=== PATIENT | female | born 1980 | race Caucasian/White ===

== ENCOUNTER 2018-05-20 01:37 | Emergency (ER) | payer OTHER ==
[2018-05-20] MEDS ORDERED: HYDROCODONE/APAP 10/325 TAB ONE (02:14)
[2018-05-20] MEDS ORDERED: KETOROLAC 30 MG/ML INJ ONE (02:14)
[2018-05-20 02:30] LABS: Urine Mucus 3+ /HPF (NONE SEEN); Urine RBC <5 /HPF (NONE SEEN)
[2018-05-20 02:31] LABS: Urine Bacteria <20 /HPF (<20); Urine Culture Reflex Order NOT NEEDED
[2018-05-20 02:35] LABS: Urine Blood NEGATIVE (NEG); Urine Glucose NEGATIVE (NEG); Urine Protein NEGATIVE (NEG); Urine Specific Gravity 1.025 (1.005-1.030); Urine pH 5.5 (5.0-7.0)
--- NOTE | 2018-05-20 03:23 | EDPHYS ---
Physician Documentation [facility] Name: Christa Montero Age: 37 yrs Sex: Female : 1980 Arrival Date: 05/20/2018 Time: 01:38 Bed 16 Private MD: Urbano Sanchez ED Physician Juan Dumas HPI: 05/20 03:19 This 37 yrs old Female presents to ER via Ambulatory with complaints of Back gs Pain. 03:19 The patient presents with pain that is acute. The symptoms are located in the low back. gs Onset: The symptoms/episode began/occurred 2 day(s) ago, and became persistent. The pain radiates to the right quadriceps. Associated signs and symptoms: Pertinent negatives: dysuria, incontinence, numbness, urinary retention. Modifying factors: the patient symptoms are aggravated by any movement, bending. Severity of symptoms: At their worst the symptoms were moderate, in the emergency department the symptoms are unchanged. 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 - Social history:: Smoking status: Patient/guardian denies using tobacco, never smoked. - Ebola Screening: : No symptoms or risks identified at this time. ROS: 03:19 All other systems are negative. gs Exam: 03:19 Head/Face: Normocephalic, atraumatic. Eyes: Pupils equal round and reactive to light, gs extra-ocular motions intact. Lids and lashes normal. Conjunctiva and sclera are non-icteric and not injected. Cornea within normal limits. Periorbital areas with no swelling, redness, or edema. ENT: Nares patent. No nasal discharge, no septal abnormalities noted. Tympanic membranes are normal and external auditory canals are clear. Oropharynx with no redness, swelling, or masses, exudates, or evidence of obstruction, uvula midline. Mucous membranes moist. Neck: Trachea midline, no thyromegaly or masses palpated, and no cervical lymphadenopathy. Supple, full range of motion without nuchal rigidity, or vertebral point tenderness. No Meningismus. Chest/axilla: Normal chest wall appearance and motion. Nontender with no deformity. No lesions are appreciated. Cardiovascular: Regular rate and rhythm with a normal S1 and S2. No gallops, murmurs, or rubs. Normal PMI, no JVD. No pulse deficits. Respiratory: Lungs have equal breath sounds bilaterally, clear to auscultation and percussion. No rales, rhonchi or wheezes noted. No increased work of breathing, no retractions or nasal flaring. Abdomen/GI: Soft, non-tender, with normal bowel sounds. No distension or tympany. No guarding or rebound. No evidence of tenderness throughout. Skin: Warm, dry with normal turgor. Normal color with no rashes, no lesions, and no evidence of cellulitis. MS/ Extremity: Pulses equal, no cyanosis. Neurovascular intact. Full, normal range of motion. Neuro: Awake and alert, GCS 15, oriented to person, place, time, and situation. Cranial nerves II-XII grossly intact. Motor strength 5/5 in all extremities. Sensory grossly intact. Cerebellar exam normal. Normal gait. 03:19 Constitutional: The patient appears alert, awake. 03:19 Back: pain, that is moderate, of the right low back. Vital Signs: 01:45 BP 155 / 107; Pulse 94; Resp 20 S; Temp 98.7(O); Pulse Ox 98% on R/A; Weight 83.91 kg cc3 (R); Height 5 ft. 1 in. (154.94 cm) (R); Pain 10/10; 02:12 BP 151 / 97; Pulse 93; Resp 19 S; Pulse Ox 99% on R/A; cc3 03:20 BP 148 / 83; Pulse 89; Resp 18 S; Pulse Ox 98% on R/A; cc3 01:45 Body Mass Index 34.96 (83.91 kg, 154.94 cm) cc3 MDM: 01:55 Patient medically screened. 03:19 Differential diagnosis: Pyelonephritis ruptured disc, sprain, Ureterolithiasis. Data gs reviewed: vital signs, nurses notes. Counseling: I had a detailed discussion with the patient and/or guardian regarding: the historical points, exam findings, and any diagnostic results supporting the discharge/admit diagnosis, lab results, radiology results, the need for outpatient follow up. Response to treatment: the patient's symptoms have markedly improved after treatment, and as a result, I will discharge patient. 05/20 01:56 Order name: Urine Microscopic Only; Complete Time: 02:38 05/20 02:33 Order name: Urine Dipstick--Ancillary (enter results); Complete Time: 02:38 ar5 05/20 01:56 Order name: Urine Test (obtain specimen); Complete Time: 02:21 05/20 01:56 Order name: CT Stone Protocol 05/20 01:56 Order name: Urine Dipstick-Ancillary (obtain specimen); Complete Time: 02:21 Administered Medications: 02:05 Drug: [place] 10 mg-325 mg 1 tabs Route: PO; cc3 02:30 Follow up: Response: No adverse reaction; Pain is decreased cc3 02:10 Drug: TORadol 30 mg Route: IM; Site: left gluteus; cc3 02:30 Follow up: Response: No adverse reaction; Pain is decreased cc3 Disposition: 05/20/18 03:22 Discharged to Home. Impression: Sprain of ligaments of lumbar spine. - Condition is Stable. - Discharge Instructions: Back Exercises, [id number]. - Prescriptions for Prednisone 20 mg Oral Tablet - take 1 tablet by ORAL route once daily for 5 days; 5 tablet. Tylenol- Codeine #4 300-60 mg Oral Tablet - take 1 tablet by ORAL route every 6 hours As needed; 12 tablet. - Medication Reconciliation Form, Thank You Letter, Antibiotic Education, Prescription Opioid Use form. - Follow up: Private Physician; When: 2 - 3 days; Reason: Re-evaluation by your physician. Signatures: Dispatcher [facility] Juan Dumas MD MD Essie Conroy 3 Corrections: (The following items were deleted from the chart) 03:21 01:45 PMHx: None; cc3 03:37 03:22 05/20/2018 03:22 Discharged to Home. Impression: Sprain of ligaments of lumbar cc3 spine. Condition is Stable. Forms are Medication Reconciliation Form, Thank You Letter, Antibiotic Education, Prescription Opioid Use. Follow up: Private Physician; When: 2 - 3 days; Reason: Re-evaluation by your physician.
--- NOTE | 2018-05-20 03:23 | ER ---
Nurse's Notes [facility] Name: Christa Montero Age: 37 yrs Sex: Female : 1980 Arrival Date: 05/20/2018 Time: 01:38 Bed 16 Private MD: Urbano Sanchez Diagnosis: Sprain of ligaments of lumbar spine Presentation: 05/20 01:45 Presenting complaint: Patient states: Low back pain radiating to bilateral hips since cc3 yesterday. Transition of care: patient was not received from another setting of care. Onset of symptoms was May 19, 2018. Risk Assessment: Do you want to hurt yourself or someone else? Patient reports no desire to harm self or others. Initial Sepsis Screen: Does the patient meet any 2 criteria? No. Patient's initial sepsis screen is negative. Does the patient have a suspected source of infection? No. Patient's initial sepsis screen is negative. Care prior to arrival: None. 01:45 Method Of Arrival: Ambulatory cc3 01:45 Acuity: MARION 3 cc3 Triage Assessment: 01:45 General: Appears distressed, uncomfortable, Behavior is calm, cooperative, appropriate cc3 for age. Pain: Complains of pain in low back, bilateral hips Pain currently is 10 out of 10 on a pain scale. Quality of pain is described as aching. EENT: No signs and/or symptoms were reported regarding the EENT system. Neuro: Level of Consciousness is awake, alert, obeys commands, Oriented to person, place, time, situation, Appropriate for age. Cardiovascular: Denies chest pain. Respiratory: Airway is patent Respiratory effort is even, unlabored, Respiratory pattern is regular, symmetrical. GI: Abdomen is round non-distended. : No signs and/or symptoms were reported regarding the genitourinary system. Derm: No signs and/or symptoms reported regarding the dermatologic system. Musculoskeletal: Circulation, motion, and sensation intact. Range of motion: intact in all extremities. 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 - Social history:: Smoking status: Patient/guardian denies using tobacco, never smoked. - Ebola Screening: : No symptoms or risks identified at this time. Screenin:45 Abuse screen: Denies threats or abuse. Denies injuries from another. Nutritional cc3 screening: No deficits noted. Tuberculosis screening: No symptoms or risk factors identified. Fall Risk Ambulatory Aid- None/Bed Rest/Nurse Assist (0 pts). Gait- Normal/Bed Rest/Wheelchair (0 pts) Mental Status- Oriented to own ability (0 pts). Assessment: 01:45 General: see triage assessment. cc3 02:42 Reassessment: Patient appears in no apparent distress at this time. Patient and/or cc3 family updated on plan of care and expected duration. Pain level reassessed. Patient is alert, oriented x 3, equal unlabored respirations, skin warm/dry/pink. Patient came back from CT scan department. 03:30 Reassessment: Patient appears in no apparent distress at this time. Patient and/or cc3 family updated on plan of care and expected duration. Pain level reassessed. Patient is alert, oriented x 3, equal unlabored respirations, skin warm/dry/pink. Dr. Dumas discharged the patient home with prescription given. No IV cannula in situ. Patient left ER vitally stable and ambulatory with her . Vital Signs: 01:45 BP 155 / 107; Pulse 94; Resp 20 S; Temp 98.7(O); Pulse Ox 98% on R/A; Weight 83.91 kg cc3 (R); Height 5 ft. 1 in. (154.94 cm) (R); Pain 10/10; 02:12 BP 151 / 97; Pulse 93; Resp 19 S; Pulse Ox 99% on R/A; cc3 03:20 BP 148 / 83; Pulse 89; Resp 18 S; Pulse Ox 98% on R/A; cc3 01:45 Body Mass Index 34.96 (83.91 kg, 154.94 cm) 3 ED Course: 01:38 Patient arrived in ED. am2 01:39 Urbano Sanchez DO is Private Physician. am2 01:45 Arm band placed on right wrist. cc3 01:45 Patient has correct armband on for positive identification. Bed in low position. Call cc3 light in reach. Side rails up X 1. Pulse ox on. NIBP on. 01:49 Juan Dumas MD is Attending Physician. 01:50 Essie Conroy is Primary Nurse. cc3 01:55 Triage completed. cc3 02:49 CT Stone Protocol In Process Unspecified. EDMS 03:02 CT completed. Patient tolerated procedure well. Patient moved to CT via wheelchair. Patient moved back from CT. 03:30 No provider procedures requiring assistance completed. Patient did not have IV access cc3 during this emergency room visit. Administered Medications: 02:05 Drug: [place] 10 mg-325 mg 1 tabs Route: PO; cc3 02:30 Follow up: Response: No adverse reaction; Pain is decreased cc3 02:10 Drug: TORadol 30 mg Route: IM; Site: left gluteus; cc3 02:30 Follow up: Response: No adverse reaction; Pain is decreased cc3 Outcome: 03:22 Discharge ordered by MD. gs 03:30 Discharged to home ambulatory, with family. cc3 03:30 Condition: stable 03:30 Discharge instructions given to patient, family, Instructed on discharge instructions, follow up and referral plans. medication usage, Demonstrated understanding of instructions, follow-up care, medications, Prescriptions given X 2. 03:37 Patient left the ED. cc3 Signatures: Dispatcher [employer] [facility] Sarabjit [employer]shine Tabitha Valles Juan Guajardo MD MD Essie Conroy cc3 Corrections: (The following items were deleted from the chart) 03:21 01:45 PMHx: None; cc3 04:49 02:42 Reassessment: Patient came back from CT scan department. cc3 cc3
--- NOTE | 2018-05-20 08:36 | RAD REPORT ---
EXAM DESCRIPTION: CT - Stone Protocol - 05/20/2018 5:41 am CLINICAL HISTORY: Abdominal pain. Lower abdominal pain. COMPARISON: None. TECHNIQUE: Computed axial tomography of the abdomen pelvis was obtained without oral or IV contrast. Lack of IV and oral contrast limits evaluation of solid organs, bowel, and vessels. Coronal reformat christopher images were obtained and reviewed. Preliminary report generated by virtual radiologic a review p rior to dictation All CT scans are performed using dose optimization technique as appropriate and may include automated exposure control or mA/KV adjustment according to patient size. FINDINGS: A renal calculus is not seen. An ureteral calculus is not noted. A bladder calculus is not present. The liver, spleen, pancreas and adrenals appear grossly normal There is no evidence of diverticulitis. The appendix appears normal A 4.5 centimeter left adnexal cystic mass without significant free-fluid. An IUD is in good position A left breast implant is only partially included in the field of view. It may be ruptured and should be correlated clinically IMPRESSION: Negative for a genitourinary calculus 4.5 centimeter left adnexal cystic mass without significant free-fluid. 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 It is recommended patient follow up ultrasound in a couple months for re-evaluation
== END 2018-05-20 03:37 | disposition home or self-care (01) ==
LOC: ER 01:37
DX: S33.5XXA Sprain of ligaments of lumbar spine, initial encounter (principal); I10 Essential (primary) hypertension
CPT/HCPCS: 74176; 76377; 81003; 81015; 96372; 99284

== ENCOUNTER 2024-01-23 10:42 | Emergency (ER) | payer BC ==
--- OUTSIDE RECORDS SUMMARY | 2024-01-23 10:46 | XMS REPORT | Continuity of Care Document ---
Author Name Unknown Address [address] [facility] [address] [place] [address] [facility] thconnect Address [address] [facility] [place] [address] Care Team Providers Care Counselor Manager Name Role Phone Alexandria Jenkins Attending Clinician Unavailable Garry Moran Attending Clinician Unavailable Martha Chong Attending Clinician Unavailable Melodie Rose Attending Clinician UnavailGarry Cobb Admitting Clinician Unavailable Martha Chong Admitting Clinician Unavailable Urbano Sanchez Admitting Clinician Unavailable Payers Payer Name Policy Type Policy Number Effective Date Expirati on Date Source Allergies, Adverse Reactions, Alerts Allergy Name Allergy Type Status Severity Reaction(s) Onset Date Inactive Date Treating Clinician Comments Source No Known Allergie s DA Active U - 00:00: 00 [facility] No Known Allergie s DA Active U - 00:00: 00 [facility] No Known Allergie s DA Active U - 00:00: 00 [facility] Procedures Procedure Date / Time Performed Performing Clinicia n Source [id number] 2019-07-24 00:00:00 [facility] [id number] 2019-07-24 00:00:00 [facility] Encounters Start Date/Time End Date/Time Encounter Type Admission Type Attending Clinicians Care Facility Care Department Encounter ID Source 2023-02-08 16:07:00 Outpatient Alexandria Jenkins [facility] [id number] [facility] 2019-08-02 07:15:00 Inpatient Garry Hyman [facility] LD [id number] [facility] 2019-07-24 13:30:00 Inpatient Garry Hyman [facility] LD [id number] [facility] 2019-07-14 13:07:00 Inpatient Kristin Morannna [facility] EVA [id number] [facility] 2023-09-07 08:28:00 2023-09-08 10:38:00 Inpatient Martha Garcias [facility] MEDI.01 [id number] [facility] 2023-04-12 10:44:00 2023-04-12 10:44:00 Outpatient Melodie Capps [facility] [id number] [facility] 2019-07-04 11:00:00 2019-07-04 11:00:00 Outpatient Garry Moran [facility] RADI [id number] [facility] Results Test Description Test Time Test Comments Results Result Co mments Source CBC W/AUTO [id number] 05:33:00* Test Item Value Reference Range Interpretation Comme nts WHITE BLOOD CELL (test code = WBC) 13.4 K/mm3 6.5-12.3 H RED BLOOD CELL (test code = RBC) 3.72 M/mm3 3.51-4.69 N HEMOGLOBIN (test code = HGB) 9.9 g/dL 10.1-13.8 L HEMATOCRIT (test code = HCT) 31.5 % 32.5-41.8 L MEAN CELL VOLUME (test code = MCV) 84.7 fL 84.6-96.6 N MEAN CELL HGB (test code = MCH) 26.6 pg 27.3-33.9 L MEAN CELL HGB CONCETRATION ( test code = MCHC) 31.4 gm/dL 32.0-34.2 L RED CELL DISTRIBUTION WIDTH (test code = RDW) 13.3 % 12.2-16.3 N PLATELET COUNT (test code = PLT) 333 K/mm3 134-363 N MEAN PLATELET VOLUME (test c ode = MPV) 10.1 fL 9.2-12.7 N NEUTROPHIL % (test code = NT%) 78.2 % 57.9-77.3 H LYMPHOCYTE % (test code = LY%) 14.4 % 14.5-29.7 L MONOCYTE % (test code = MO%) 6.9 % 3.6-10.2 N EOSINOPHIL % (test code = EO%) 0.0 % 0.0-3.0 N BASOPHIL % (test code = BA%) 0.3 % 0.1-0.9 N NEUTROPHIL # (test code = NT#) 10.5 K/mm3 LYMPHOCYTE # (test code = LY#) 1.9 K/mm3 MONOCYTE # (test code = MO#) 0.9 K/mm3 EOSINOPHIL # (test code = EO#) 0 K/mm3 BASOPHIL # (test code = BA#) 0.0 K/mm3 AG HEPATITIS B [id number] 17:34:00* Test Item Value Reference Range Interpretation Comme nts AG HEPATITIS B SURFACE (test code = HBSAG) NONREACTIVE NONREACTIVE AB HEPATITIS C [id number] 17:34:00* Test Item Value Reference Range Interpretation Comme nts AB HEPATITIS C (test code = HCVAB) NONREACTIVE NONREACTIVE SIGNAL TO CUTOFF (test code = CUTOFF) 0.20 <0.80 N AB HIV 1 17:34:00* Test Item Value Reference Range Interpretation Comme nts AB HIV 1 2 (test code = OLU69IQ) NONREACTIVE NONREACTIVE Done by [employer] HIV Ag/Ab Combo Screen BASIC METABOLIC [id number] 17:32:00* Test Item Value Reference Range Interpretation Comme nts SODIUM (test code = NA) 142 mEq/L 135-145 N POTASSIUM (test code = K) 3.7 mEq/L 3.5-5.0 N CHLORIDE (test code = CL) 106 mEq/L 100-115 N CARBON DIOXIDE (test code = CO2) 23 mEq/L 22-31 N ANION GAP (test code = GAP) 17.10 10-20 N GLUCOSE (test code = GLU) 135 mg/dL 65-110 H BLOOD UREA NITROGEN (test code = BUN) 9 mg/dL 7-18 N CREATININE (test code = CREAT) 0.7 mg/dL 0.5-1.0 N CALCIUM (test code = CA) 8.6 mg/dL 8.4-10.2 N GLOMERULAR FILTRATION RATE (test code = GFR) 111 ml/min >60 N The Glomerular Filtration Rate is a calculated parameterbased on serum Creatinine, patient age and sex. GFR valuesless than 60 mL/min/1.73 square meters are indicative ofChronic Kidney Disease. Values less than 15 mL/min/1.73square meters indicate Kidney failure. The calculation forGFR is based on the CKD-EPI (202) calculation. This formulais race indifferent and is the recommended formula for GFRby the National Kidney Foundation for Adults.The GFR will not calculate if the sex is unknown or if thepatient's age is <18 years. HCG SERUM [id number] 17:12:00* Test Item Value Reference Range Interpretation Comme nts HCG SERUM QUAL (test code = HCGQL) NEGATIVE COVID 19 Asymptomatic IH [id number] 16:25:00* Test Item Value Reference Range Interpretation Comme nts COVID 19 Asymptomatic IH AG (test code = COVNONPUIAG) NEGATIVE NEGATIVE This test has be en authorized only for the detection ofproteins from SARS-CoV-2, not for any other viruses orpathogens. Negative results should be treated as presumptive andconfirmed with a molecular assay, if necessary for patientmanagement. Negative results do not rule out COVID-19 andshould not be used as the sole basis for treatment orpatient management decisions, including infection controldecisions. Negative results should be considered in thecontext of a patient's recent exposures, history and thepresence of clinical signs and symptoms consistent withCOVID-19. This test has not been FDA cleared or approved; the test hasbeen authorized by FDA under an Emergency Use Authorization(EUA) for use by laboratories certified under the CLIA thatmeet the requirements to perform moderate, high or waivedcomplexity tests. This test is authorized for use at thePoint of Care (POC), i.e., in patient care settingsoperating under a CLIA Certificate of Waiver, Certificate ofCompliance, or Certificate of Accreditation. This test is only authorized for the duration of thedeclaration that circumstances exist justifying theauthorization of emergency use of in vitro diagnostic testsfor detection and/or diagnosis of COVID-19 under Gkhwbdk162(b)(1) of the Act, 21 U.S.C. 360bbb-3(b)(1), unless theauthorization is terminated or revoked sooner. URINALYSIS [id number] 16:14:00* Test Item Value Reference Range Interpretation Comme nts UA COLOR (test code = COLU) YELLOW YELLOW UA APPEARANCE (test code = APPU) Slightly-Cloudy CLEAR UA GLUCOSE DIPSTICK (test code = DGLUU) NEGATIVE NEG UA BILIRUBIN DIPSTICK (test code = BILU) NEGATIVE NEG UA KETONE DIPSTICK (test cod e = KETU) NEGATIVE NEG UA SPECIFIC GRAVITY (test code = SGU) 1.021 1.001-1.035 N UA BLOOD DIPSTICK (test code = DUNCAN) NEG NEG UA PH DIPSTICK (test code = JOIE) 5.0 5-9 UA PROTEIN DIPSTICK (test code = PROU) NEGATIVE NEG UA UROBILINIOGEN DIPSTICK (test code = URO) NEGATIVE mg/dL NEG UA NITRITE DIPSTICK (test code = DEJON) NEG NEG UA LEUKOCYTE ESTERASE DIPSTICK (test code = LEUU) NEG NEG UA WBC (test code = WBCU) 0-2 #/hpf NONE SEEN UA RBC (test code = RBCU) 0-2 #/hpf NONE SEEN UA EPITHELIAL CELLS (test code = EPIU) RARE #/HPF RARE-FEW UA MUCUS (test code = MUCU) 2+ NONE SEEN A URINE SAMPLE: CLEAN CATCHCBC W/AUTO [id number] 16:05:00* Test Item Value Reference Range Interpretation Comme nts WHITE BLOOD CELL (test code = WBC) 8.5 K/mm3 6.5-12.3 N RED BLOOD CELL (test code = RBC) 4.10 M/mm3 3.51-4.69 N HEMOGLOBIN (test code = HGB) 11.2 g/dL 10.1-13.8 N HEMATOCRIT (test code = HCT) 35.3 % 32.5-41.8 N MEAN CELL VOLUME (test code = MCV) 86.1 fL 84.6-96.6 N MEAN CELL HGB (test code = MCH) 27.3 pg 27.3-33.9 N MEAN CELL HGB CONCETRATION ( test code = MCHC) 31.7 gm/dL 32.0-34.2 L RED CELL DISTRIBUTION WIDTH (test code = RDW) 13.1 % 12.2-16.3 N PLATELET COUNT (test code = PLT) 364 K/mm3 134-363 H MEAN PLATELET VOLUME (test c ode = MPV) 10.0 fL 9.2-12.7 N NEUTROPHIL % (test code = NT%) 66.1 % 57.9-77.3 N LYMPHOCYTE % (test code = LY%) 25.4 % 14.5-29.7 N MONOCYTE % (test code = MO%) 5.2 % 3.6-10.2 N EOSINOPHIL % (test code = EO%) 2.5 % 0.0-3.0 N BASOPHIL % (test code = BA%) 0.7 % 0.1-0.9 N NEUTROPHIL # (test code = NT#) 5.6 K/mm3 LYMPHOCYTE # (test code = LY#) 2.2 K/mm3 MONOCYTE # (test code = MO#) 0.4 K/mm3 EOSINOPHIL # (test code = EO#) 0.21 K/mm3 BASOPHIL # (test code = BA#) 0.1 K/mm3 - DUP AB/PEL/SC [id number] 13:45:00 [facility] 1980 Sex: F Name: IDANIA DALEY [facility] : 1980 Age/S: 42 / F [address] [facility] Unit #: [id number] Loc: [place] [address] Phys: Melodie Rose MD Acct: [id number] Dis Date: Status: REG CLI PHONE #: [phone] Exam Date: 04/12/20231138 FAX #: Reason: EXCESSIVE MENSTRUATIONS EXAMS: CPT: [id number] AB/PEL/SC COMP 90536 CLINICAL INFORMATION: Menorrhagia. Irregular cycles. Dictation location: A 1 Comparison: No recent similar prior. Technique: Transabdominal and/or transvaginal study was done. Duplex color and spectral Doppler analysis of ovarian flow. FINDINGS: The uterus measures 12.4 x 6.2 x 7.2 cm. The endometrial echo measured 1.3cm. The ovaries were normal in size and appearance with no adnexal mass or fluid identified. Normal blood flow was visualized by Doppler. Minimal free fluid was seen in the cul-de-sac. No significant cervical cyst formation. IMPRESSION: Slight thickeningof the endometrial echo could be due to the phase of menstruation. Otherwise no uterine or adnexal mass identified. at 1345 Reported and signed by: Real Luciano M.D. CC: Urbano Sanchez DO; Melodie Rose MD Technologist: Kim Medina Trnscb Date/Time: 04/12/2023 (1345) BensonAGV PAGE 1 Signed Report Name: IDANIA DALEY [facility] : 1980 Age/S: 42 / F [address] [facility] Unit #: [id number] Loc: [place] [address] Phys: Melodie Rose MD Acct: [id number] Dis Date: Status: REG CLI PHONE #: [phone] Exam Date: 04/12/20231138 FAX #: Reason: EXCESSIVE MENSTRUATIONS EXAMS: CPT: [id number] DUP AB/PEL/SC COMP 30767 (Continued) Orig Print D/T: S: 04/12/2023 (1348) Probe: PAGE 2 Signed Report- US PELVIC [id number] 13:45[facility] 1980 Sex: F Name: IDANIA DALEY [facility] : 1980 Age/S: 42 / F [address] [address] Unit #: [id number] Loc: [place] [address] Phys: Melodie Rose MD Acct: [id number] Dis Date: Status: REG CLI PHONE #: [phone] Exam Date: 04/12/2023 1139 FAX #: Reason: MENORRHAGIA WITH REGULAR CYCLE EXAMS: CPT: [id number] US PELVIC COMPLETE [address]6423 CLINICAL INFORMATION: Menorrhagia. Irregular cycles. Dictation location: A 1 Comparison: No recent similar prior. Technique: Transabdominal and/or transvaginal study was done. Duplex color and spectral Doppler analysis of ovarian flow. FINDINGS: The uterus measures 12.4 x 6.2 x 7.2 cm. The endometrial echo measured 1.3cm. The ovaries were normal in size and appearance with no adnexal mass or fluid identified. Normal blood flow was visualized by Doppler. Minimal free fluid was seen in the cul-de-sac. No significant cervical cyst formation. IMPRESSION: Slight thickening of the endometrial echo could be due to the phase of menstruation. Otherwise no uterine or adnexal mass identified. at 1345 Reported and signed by: Real Luciano M.D. CC: Urbano Rose MD Technologist: Kim Medina Trnprb Date/Time: 04/12/2023 (4551) t.SDR.AGV PAGE 1 Signed Report Name: IDANIA DALEY [facility] : 1980 Age/S: 42 / F [address] [facility] Unit #: [id number] Loc: [place] [address] Phys: Melodie Rose MD Acct: [id number] Dis Date: Status: REG CLI PHONE #: [phone] Exam Date: 04/12/2023 1139 FAX #: Reason: MENORRHAGIA WITH REGULAR CYCLE EXAMS: CPT: [id number] US PELVIC COMPLETE 77695 (Continued) Orig Print D/T: S: 04/12/2023 (4176) Probe: PAGE 2 Signed Report- US TRANSVAGINAL NON [id number] 13:45:00 [facility] 1980 Sex: F Name: IDANIA DALEY [facility] : 1980 Age/S: 42 / F [address] [facility] Unit #: [id number] Loc: [place] [address] Phys: Melodie Rose MD Acct: [id number] Dis Date: Status: REG CLI PHONE #: [phone] Exam Date: 04/12/2023 1138 FAX #: Reason: MENORRHAGIA WITH REGULAR CYCLE EXAMS: CPT: [id number] [place] [address] CLINICAL INFORMATION: Menorrhagia. Irregular cycles. Dictation location: A 1 Comparison: No recent similar prior. Technique: Transabdominal and/or transvaginal study was done. Duplex color and spectral Doppler analysis of ovarian flow. FINDINGS: The uterus measures 12.4 x 6.2 x 7.2 cm. The endometrial echo measured 1.3cm. The ovaries were normal in size and appearance with no adnexal mass or fluid identified. Normal blood flow was visualized by Doppler. Minimal free fluid was seen in the cul-de-sac. No significant cervical cyst formation. IMPRESSION: Slight thickening of the endometrial echo could be due to the phase of menstruation. Otherwise no uterine or adnexal mass identified. at 1345 Reported and signed by: Real Luciano M.D. CC: Urbano Sanchez DO; Melodie Rose MDTechnologist: Kim Medina Trnscb Date/Time: 04/12/2023 (2370) BensonAGV PAGE 1 Signed Report Name: IDANIA DALEY [facility] : 1980 Age/S: 42 / F [address] [address] Unit #: [id number] Loc: [place] [address] Phys: Melodie Rose MD Acct: [id number] Dis Date: Status: REG CLI PHONE #: [phone] Exam Date: 04/12/2023 1139 FAX #: Reason: MENORRHAGIA WITH REGULAR CYCLE EXAMS: CPT: [id number] [place] [address] (Continued) Orig Print D/T: S: 04/12/2023 (7853) Probe: [id number] PAGE 2 Signed Report FALLOPIAN TUBE,[id number] 15:04:00 RUN DATE: 07/26/19 [facility] PAGE 1 RUN TIME: 1922 Specimen Inquiry RUN USER: INTERFACE ------- -----PATIENT: IDANIA DALEY LOC: [facility] U #: [id number] AGE/SX: 38/F ROOM: [facility] RE07/24/19REG DR: Garry Moran MD : [birth year] BED: A DIS: STATUS: ADM IN TLOC: SPEC #: [id number] RECD: 07/24/19 STATUS: KAILYN CARDONA #: [id number] THOMAS: 07/24/19- SUBM DR: Garry Moran MD ENTERED: 07/25/19 SP TYPE: FALLS OT DR: Zina Yadav MD ORDERED: LEVEL II SURGIC/2 CODES: [id number] - FALLOPIAN TUBE COPIES TO: Zina Yadav MD [address] [facility] [address] [place] [address] [email or web address] Garry Moran MD [address] [facility] [address] [place] [address] PROCEDURES: LEVEL II SURGIC (Incomplete) TISSUES: FALLOPIAN TUBE, NOS - BILATERAL FALLOPIAN TUBES CLINICAL HISTORY 38 year old, @ 37.1 weeks, CHTN (kr) FINAL DIAGNOSIS Specimen #1 right fallopian tube, segmental resection: - histologic - complete lumen demonstrated Specimen #2 left fallopian tube, perry resection: - histologic - complete lumen demonstrated CPT code(s): 08766 x2 cds/wpd 07/26/19 CONTINUED ON NEXT PAGE RUN DATE: 07/26/19 [facility] PAGE 2 RUN TIME: 1922 Specimen Inquiry RUN USER: INTERFACE SPEC #: [id number] PATIENT: IDANIA DALEY #[id number] (Continued) GROSS DESCRIPTION ANATOMIC SOURCE OF TISSUE (per Requisition): Fallopian right and left tube segments (two containers) Each specimen is labeled with the patient's name and medical record number. Specimen #1 is designated "right fallopiantube" and consists of a 1.0 cm in length and 0.4 cm in diameter pink-purple and hyperemic segment of fallopian tube. The lumen is pinpoint. Paper Cutting Machine Operator sections are submitted labeled A1. Specimen #2 is designated "left fallopian tube" and consists of a 0.8 cm in length and 0.6 cm in diameter pink-purple and hyperemic segment of fallopian tube. The lumen is pinpoint. Entirely submitted as B1. ralph /vipin 07/25/19 MICROSCOPIC DESCRIPTION Cross-sections of fallopian tubes are histologic and demonstratecompletely transected lumens. lyn/wpedison 07/26/19 Signed Anthony Ibanez 07/26/19 1504 END OF REPORT CBC W/AUTO [id number] 05:36:00* Test Item Value Reference Range Interpretation Comme nts WHITE BLOOD CELL (test code = WBC) 15.5 K/mm3 6.6-12.1 H Results verified by repeat analysis RED BLOOD CELL (test code = RBC) 4.01 M/mm3 3.45-5.01 N HEMOGLOBIN (test code = HGB) 11.6 g/dL 10.7-13.9 N HEMATOCRIT (test code = HCT) 35.9 % 32.1-42.1 N MEAN CELL VOLUME (test code = MCV) 90 fL 84.1-94.8 N MEAN CELL HGB (test code = MCH) 28.9 pg 27-35 N MEAN CELL HGB CONCETRATION (test code = MCHC) 32.3 gm/dL 32.2-34.1 N RED CELL DISTRIBUTION WIDTH (test code = RDW) 19.0 % 12.4-16.5 H PLATELET COUNT (test code = PLT) 199 K/mm3 133-385 N MEAN PLATELET VOLUME (test code = MPV) 11.0 fl 9.1-12.7 N NEUTROPHIL % (test code = NT%) 85.4 % 56.5-79.4 H LYMPHOCYTE % (test code = LY%) 8.2 % 14.3-34.3 L MONOCYTE % (test code = MO%) 5.6 % 5.1-10.4 N EOSINOPHIL % (test code = EO%) 0.1 % 0.1-3.0 N BASOPHIL % (test code = BA%) 0.2 % 0.1-1.0 N NEUTROPHIL # (test code = NT#) 13.2 K/mm3 LYMPHOCYTE # (test code = LY#) 1.3 K/mm3 MONOCYTE # (test code = MO#) 0.9 K/mm3 EOSINOPHIL # (test code = EO#) 0.01 K/mm3 BASOPHIL # (test code = BA#) 0.0 K/mm3 RBC MORPHOLOGY REQUIRED (test code = RBCM) NORMAL NORMAL PLATELET MORPHOLOGY REQUIRED (test code = PLTMR) NORMAL NORMAL AG HEPATITIS B [id number] 16:21:00* Test Item Value Reference Range Interpretation Comme nts AG HEPATITIS B SURFACE (test code = HBSAG) NONREACTIVE NONREACTIVE IS CONSENT FORM SIGNED FOR HIV TESTING? YAB HEPATITIS C [id number] 16:21:00* Test Item Value Reference Range Interpretation Comme nts AB HEPATITIS C (test code = HCVAB) NONREACTIVE NONREACTIVE SIGNAL TO CUTOFF (test code = CUTOFF) 0.15 <0.80 N IS CONSENT FORM SIGNED FOR HIV TESTING? YAB [id number] 16:21:00* Test Item Value Reference Range Interpretation Comme nts AB TREPONEMA (test code = TREPAB) NONREACTIVE NONREACTIVE IS CONSENT FORM SIGNED FOR HIV TESTING? YAB HIV 1 16:21:00* Test Item Value Reference Range Interpretation Comme nts AB HIV 1 2 (test code = JSA09VA) NONREACTIVE NONREACTIVE Done by [employer] 4[employer] HIV Ag/Ab Combo Screen IS CONSENT FORM SIGNED FOR HIV TESTING? YAG HEPATITIS B [id number] 15:52:00* Test Item Value Reference Range Interpretation Comme nts AG HEPATITIS B SURFACE (test code = HBSAG) NONREACTIVE NONREACTIVE IS CONSENT FORM SIGNED FOR HIV TESTING? YAB HEPATITIS C [id number] 15:52:00* Test Item Value Reference Range Interpretation Comme nts AB HEPATITIS C (test code = HCVAB) NONREACTIVE SIGNAL TO CUTOFF (test code = CUTOFF) <0.80 IS CONSENT FORM SIGNED FOR HIV TESTING? KINGB [id number] 15:52:00* Test Item Value Reference Range Interpretation Comme nts AB TREPONEMA (test code = TREPAB) NONREACTIVE NONREACTIVE IS CONSENT FORM SIGNED FOR HIV TESTING? SANTY HIV 1 15:52:00* Test Item Value Reference Range Interpretation Comme nts AB HIV 1 2 (test code = GKL66VF) NONREACTIVE IS CONSENT FORM SIGNED FOR HIV TESTING? YUR PROTEIN/CREATININE [id number] 15:35:00* Test Item Value Reference Range Interpretation Comme nts UR PROTEIN RANDOM (test code = PROTU) 33.0 mg/dL UR CREATININE RANDOM (test code = CREATU) 78.8 mg/dL PROTEIN/CREATININE RATIO (te st code = P/CRATIO) 410.0 mg/gcrea <200 H URIC [id number] 15:02:00* Test Item Value Reference Range Interpretation Comme nts URIC ACID (test code = URIC) 4.7 mg/dL 2.6-6.0 N [id number] 15:02:00* Test Item Value Reference Range Interpretation Comme nts SGOT/AST (test code = AST) 33 units/L 15-37 SGPT/[id number] 15:02:00* Test Item Value Reference Range Interpretation Comme nts SGPT/ALT (test code = ALT) 24 units/L 12-78 N LACTIC DEHYDROGENASE(LDH)2019-07-24 15:02:00* Test Item Value Reference Range Interpretation Comme nts LACTIC DEHYDROGENASE(LDH) (t est code = LDH) 198 units/L 81-234 N URINALYSIS W/O [id number] 14:30:00* Test Item Value Reference Range Interpretation Comme nts UA GLUCOSE DIPSTICK (test co de = DGLUU) NEGATIVE NEGATIVE UA KETONE DIPSTICK (test cod e = KETU) 1+ NEGATIVE UA PROTEIN DIPSTICK (test co de = PROU) NEGATIVE NEGATIVE IS NURSE PERFORMING TEST? NCBC W/AUTO [id number] 14:28:00* Test Item Value Reference Range Interpretation Comme nts WHITE BLOOD CELL (test code = WBC) 8.1 K/mm3 6.6-12.1 N RED BLOOD CELL (test code = RBC) 4.32 M/mm3 3.45-5.01 N HEMOGLOBIN (test code = HGB) 12.1 g/dL 10.7-13.9 N HEMATOCRIT (test code = HCT) 38.7 % 32.1-42.1 N MEAN CELL VOLUME (test code = MCV) 90 fL 84.1-94.8 N MEAN CELL HGB (test code = MCH) 28.0 pg 27-35 N MEAN CELL HGB CONCETRATION ( test code = MCHC) 31.3 gm/dL 32.2-34.1 L RED CELL DISTRIBUTION WIDTH (test code = RDW) 19.4 % 12.4-16.5 H PLATELET COUNT (test code = PLT) 196 K/mm3 133-385 N MEAN PLATELET VOLUME (test c ode = MPV) 11.5 fl 9.1-12.7 N NEUTROPHIL % (test code = NT%) 72.7 % 56.5-79.4 N LYMPHOCYTE % (test code = LY%) 18.1 % 14.3-34.3 N MONOCYTE % (test code = MO%) 7.1 % 5.1-10.4 N EOSINOPHIL % (test code = EO%) 1.0 % 0.1-3.0 N BASOPHIL % (test code = BA%) 0.4 % 0.1-1.0 N NEUTROPHIL # (test code = NT#) 5.9 K/mm3 LYMPHOCYTE # (test code = LY#) 1.5 K/mm3 MONOCYTE # (test code = MO#) 0.6 K/mm3 EOSINOPHIL # (test code = EO#) 0.08 K/mm3 BASOPHIL # (test code = BA#) 0.0 K/mm3 RBC MORPHOLOGY REQUIRED (tangela t code = RBCM) NORMAL NORMAL PLATELET MORPHOLOGY REQUIRED (test code = PLTMR) NORMAL NORMAL AG HEPATITIS B [id number] 15:57:00* Test Item Value Reference Range Interpretation Comme nts AG HEPATITIS B SURFACE (test code = HBSAG) NONREACTIVE NONREACTIVE AB HEPATITIS C [id number] 15:57:00* Test Item Value Reference Range Interpretation Comme nts AB HEPATITIS C (test code = HCVAB) NONREACTIVE NONREACTIVE SIGNAL TO CUTOFF (test code = CUTOFF) 0.15 <0.80 N AB [id number] 15:57:00* Test Item Value Reference Range Interpretation Comme nts AB TREPONEMA (test code = TREPAB) NONREACTIVE NONREACTIVE AG HEPATITIS B [id number] 15:22:00* Test Item Value Reference Range Interpretation Comme nts AG HEPATITIS B SURFACE (test code = HBSAG) NONREACTIVE NONREACTIVE AB HEPATITIS C [id number] 15:22:00* Test Item Value Reference Range Interpretation Comme nts AB HEPATITIS C (test code = HCVAB) NONREACTIVE SIGNAL TO CUTOFF (test code = CUTOFF) <0.80 AB [id number] 15:22:00* Test Item Value Reference Range Interpretation Comme nts AB TREPONEMA (test code = TREPAB) NONREACTIVE NONREACTIVE BLOOD UREA [id number] 14:50:00* Test Item Value Reference Range Interpretation Comme nts BLOOD UREA NITROGEN (test code = BUN) 9 mg/dL 7-18 N [id number] 14:50:00* Test Item Value Reference Range Interpretation Comme nts CREATININE (test code = CREAT) 0.6 mg/dL 0.5-1.0 N URIC [id number] 14:50:00* Test Item Value Reference Range Interpretation Comme nts URIC ACID (test code = URIC) 4.7 mg/dL 2.6-6.0 N [id number] 14:50:00* Test Item Value Reference Range Interpretation Comme nts SGOT/AST (test code = AST) 21 units/L 15-37 N [id number] 14:50:00* Test Item Value Reference Range Interpretation Comme nts SGPT/ALT (test code = ALT) 21 units/L 12-78 N LACTIC DEHYDROGENASE(LDH)2019-07-14 14:50:00* Test Item Value Reference Range Interpretation Comme nts LACTIC DEHYDROGENASE(LDH) (t est code = LDH) 176 units/L 81-234 N URINALYSIS [id number] 14:45:00* Test Item Value Reference Range Interpretation Comme nts UA COLOR (test code = COLU) YELLOW YELLOW UA APPEARANCE (test code = APPU) Slightly-Cloudy CLEAR UA GLUCOSE DIPSTICK (test code = DGLUU) NEGATIVE NEG UA BILIRUBIN DIPSTICK (test code = BILU) NEGATIVE NEG UA KETONE DIPSTICK (test cod e = KETU) 2+ NEG A UA SPECIFIC GRAVITY (test code = SGU) 1.021 1.001-1.035 N UA BLOOD DIPSTICK (test code = DUNCAN) NEG NEG UA PH DIPSTICK (test code = JOIE) 5.0 5-9 UA PROTEIN DIPSTICK (test code = PROU) NEGATIVE NEG UA UROBILINIOGEN DIPSTICK (test code = URO) NEGATIVE mg/dL NEG UA NITRITE DIPSTICK (test code = DEJON) POSITIVE NEG A UA LEUKOCYTE ESTERASE DIPSTICK (test code = LEUU) NEG NEG UA WBC (test code = WBCU) 6-10 #/hpf NONE SEEN A UA RBC (test code = RBCU) 3-5 #/hpf NONE SEEN A UA EPITHELIAL CELLS (test code = EPIU) FEW #/HPF RARE-FEW UA BACTERIA (test code = BACU) MODERATE /HPF RARE-FEW A UA MUCUS (test code = MUCU) 3+ NONE SEEN URINE SAMPLE: CLEAN CATCHCBC W/AUTO [id number] 14:37:00* Test Item Value Reference Range Interpretation Comme nts WHITE BLOOD CELL (test code = WBC) 8.9 K/mm3 6.6-12.1 N RED BLOOD CELL (test code = RBC) 4.22 M/mm3 3.45-5.01 N HEMOGLOBIN (test code = HGB) 11.8 g/dL 10.7-13.9 N HEMATOCRIT (test code = HCT) 37.5 % 32.1-42.1 N MEAN CELL VOLUME (test code = MCV) 89 fL 84.1-94.8 N MEAN CELL HGB (test code = MCH) 28.0 pg 27-35 N MEAN CELL HGB CONCETRATION ( test code = MCHC) 31.5 gm/dL 32.2-34.1 L RED CELL DISTRIBUTION WIDTH (test code = RDW) 19.3 % 12.4-16.5 H PLATELET COUNT (test code = PLT) 191 K/mm3 133-385 N MEAN PLATELET VOLUME (test c ode = MPV) 10.7 fl 9.1-12.7 N NEUTROPHIL % (test code = NT%) 73.5 % 56.5-79.4 N LYMPHOCYTE % (test code = LY%) 18.9 % 14.3-34.3 N MONOCYTE % (test code = MO%) 5.6 % 5.1-10.4 N EOSINOPHIL % (test code = EO%) 0.9 % 0.1-3.0 N BASOPHIL % (test code = BA%) 0.3 % 0.1-1.0 N NEUTROPHIL # (test code = NT#) 6.5 K/mm3 LYMPHOCYTE # (test code = LY#) 1.7 K/mm3 MONOCYTE # (test code = MO#) 0.5 K/mm3 EOSINOPHIL # (test code = EO#) 0.08 K/mm3 BASOPHIL # (test code = BA#) 0.0 K/mm3 RBC MORPHOLOGY REQUIRED (tangela t code = RBCM) NORMAL NORMAL PLATELET MORPHOLOGY REQUIRED (test code = PLTMR) NORMAL NORMAL - US [facility] [id number] 12:29:00Patient Name: IDANIA DALEY Unit No: [id number] EXAMS: CPT [place]: [id number] [place] [address] [facility] [address] OBSTETRICAL ULTRASOUND REPORT Pat. Name: IDANIA DALEY Pat. No: [id number] Study Date: 07/04/2019 11:28am , Age: 03 1980, 38 Pregnancies: 4, Para 3 LMP: 11/06/2018 GA by LMP: 34w2d GA by 1st: 34w2d GA by US: 35w2d GA Selected: 34w2d (LMP) MARIANA: 08/13/2019 Ref erring MD: Garry Moran Director Of National Sales: Lacey Levin RDMS, RVT CPT4: USPREGFU Admitting MD: Garry Moran Hist/Ind: SCAN 3 F/U GROWTH HTN MEASUREMENTS AGE GROWTH EVALUATION Measurement GA Range Srce %for GA Ratios ----- ---- ------- BPD 8.9 cm 36w4d (10n5o-53y6g) Hadl BPD 83% FL/BPD 0.73 (0.71 - 0.87) HC 32.4 cm 36w1d (08k1l-92b2x) Hadl HC 82% FL/AC 0.19 (0.20 - 0.24* APD 11.2 cm APD HC/AC 0.94 (0.94 - 1.13* TAD 10.8 cm TAD CI 0.81 (0.70 - 0.86) AC 34.6 cm 38w5d (99m1g-36e9b) Hadl AC >95 FL 6.5 cm 33w2d (01d8z-90d7v) Hadl FL 34% HL 6.0 cm 34w5d (80k0x-71b3f) Jona HL 58% GA for sonogram 35w2d (30y2y-64y8w) Weight Estimate: based on (BPD,HC,AC,FL) Hadlock Weight: 3045 gm (7368-3334) Hadlo : 6lbs, 11oz Normal: 2283 gm (9936-0634) Brenn Wt% >90 for 34.3 wks Cervical Length: 4.8 cm Heart Rate: 147 bpm Amniotic Fluid Index: 08.9cm (08.0- 24.8) Q1: 1.7cm Q2: 4.2cm Q3: 0.0cm Q4: 3.0cm MATERNAL ANATOMY Ovaries LxHxW (cm) Right 3.7 x 1.9 x 2.0 Vol: 7.4cc Left 3.7 x 2.1 x 2.1 Vol: 8.5cc CLINICAL SUMMARY Type of Gestation: Schwartz Intrauterine in vertex presentation. size is large for gestational age. [facility] NAME: IDANIA DALEY Radiology Department PHYS: Garry Garcia MD [address] : 1980 AGE: 38 SEX: F [place], [place] [address] LOC: AyannaRAD PHONE #: [phone] EXAM DATE: 07/04/2019 STATUS: REG CLI FAX #: [phone] RAD NO: Page 1 Signed Report (CONTINUED) Patient Name: IDANIA DALEY Unit No: [id number] EXAMS: CPT CODE: [id number] [place] [address] (Continued) growth: Suspect LGA fetus (>90%) motion and organs seen: heart motion seenFetal body and limb movements observed Placental location: Anterior Placental maturity : Grade 2 There is no evidence of placenta previa. Amniotic fluid volume is normal. Uterus and adnexa: No significant abnormality is seen. Thank you for allowing us to participate in the care of this patient. Agustin Hall M.D. Electronic Signature 07/04/2019 12:29pm at 1229 Reported and signed by: Agustin Hall MD CC: Garry Moran MD Technologist: Lacey Levin RDMS, RVT Probe: Trnscrbd D/ (1229) [email or web address] Orig Print D/T: S: 07/04/2019 (1229) [facility] NAME: IDANIA DAELY Radiology Department PHYS: Garry Garcia MD [address] : 1980 AGE: 38 SEX: F [place] [address] LOC: Pearl.RAD PHONE #: [phone] EXAM DATE: 07/04/2019 STATUS: REG CLI FAX #: [phone] RAD NO: Page 2 Signed Report Patient Name: IDANIA DALEY Unit No: [id number] EXAMS: CPT CODE: [id number] [place] [address] (Continued) [facility] NAME: IDANIA DALEY [facility] [address] : 1980 AGE: 38 SEX: F [place] [address] LOC: Pearl.RAD PHONE #: [phone] EXAM DATE: 07/04/2019 STATUS: REG CLI FAX #: [phone] RAD NO: Page 3 Signed Report- US PREG AFTER [id number] 10:50:00Patient Name: IDANIA DALEY Unit No: [id number] EXAMS: CPT CODE: [id number] US PREG AFTER TRI [address] [facility] [address] [place], [place] [address] OBSTETRICAL ULTRASOUND REPORT Pat. Name: IDANIA DALEY Pat. No: [id number] Study Date: 03/27/2019 9:50am , Age: 03 1980, 38 Pregnancies: 4, Para 3 LMP: 11/06/2018 GA by LMP: 20w1d GA by 1st: 20w1d GA by US: 21w2d GA Selected: 20w1d (LMP) MARIANA: 08/13/2019 Referring MD: Garry Moran Director Of National Sales: Amira Jiang RDMS CPT4: [id number] Admitting MD: Garry Moran Hist/Ind: ANATOMY SCAN 2 MEASUREMENTS AGE GROWTH EVALUATION Measurement GA Range Srce %for GA Ratios ----- ---- ------- BPD 4.9 cm 20w6d (70k8z-61k2c) Hadl BPD 72% FL/BPD 0.65 HC 18.2 cm 20w3d (18w6d- 22w1d) Hadl HC 61% FL/AC 0.19 APD 5.4 cm APD HC/AC1.08 (1.06 - 1.24) TAD 5.3 cm TAD CI 0.80 (0.70 - 0.86) AC 16.8 cm 21w4d (30h1k-11q8g) Hadl AC 83% FL 3.2 cm 19w4d (37o4y-66g0g) Hadl FL 39% HL 3.0 cm 19w6d (78b6n-04y9i) Jona HL 46% GA for sonogram 21w2d (80b8s-55u4a) Weight Estimate: based on (BPD,AC) Hadlock Weight: 387 gm (331-444) Hadlock : 0lbs, 13oz Cervical Length: 4.9 cm Heart Rate: 168 bpm CLINICAL SUMMARY Type of Gestation: Schwartz Intrauterine in vertex presentation. size is appropriate for gestational age. motion and organsseen: heart motion seen somatic activity observed body and limb movements seen Four chamber heart observed Left ventricular outflow tract (LVOT) seen Right ventricular outflowtract (RVOT) seen Normal intracranial anatomy seen Umbilical cord insertion in fetus seen stomach, Renal Fossa, Bladder and Spine seen Three vessel umbilical cord noted Placental location: [facility] NAME: YVONNE DALEYI Radiology Department PHYS: Garry Garcia MD [address] : 1980 AGE: 38 SEX: F [place], [place] [address] LOC: AyannaRAD PHONE #: [phone] EXAM DATE: 03/27/2019 STATUS: REG CLI FAX #: [phone] RAD NO: Page 1 Signed Report (CONTINUED) Patient Name: IDANIA DALEY Unit No: [id number] EXAMS: CPT CODE: [id number] US PREG AFTER 1ST TRI 20178 (Continued) Anterior Placental maturity : Grade 1 There is no evidence of placenta previa. Amniotic fluid volume is normal. Uterus and adnexa: No significant abnormality is seen. Thank you for allowing us to participate in the care of this patient. Andre Felix M.D. Electronic Signature 03/27/2019 10:50am at 1050 Reported and signed by: Andre Felix MD CC: Garry Moran MD Technologist: Amira Jiang RDMS Probe: Trnscrbd D/ (1050) [email or web address] Orig Print D/T: S: 03/27/2019 (1050) [facility] NAME: IDANIA DALEY Radiology Department PHYS: [facility] Garry Aguiar MD [address] : 1980 AGE: 38 SEX: F [place] [address] LOC: AyannaRAD PHONE #: [phone] EXAM DATE: 03/27/2019 STATUS: REG CLI FAX #: [phone] RAD NO: Page 2 Signed Report Patient Name: IDANIA DALEY Unit No: [id number] EXAMS: CPT CODE: [id number] US PREG AFTER 1ST TRI 10701 (Continued) [facility] NAME[facility]: Garry Aguiar MD [address] : 1980 AGE: 38 SEX: F [place] [address] LOC: AyannaRAD PHONE #: [phone] EXAM DATE: 03/27/2019 STATUS: REG CLI FAX #: [phone] RAD NO: Page 3 Signed Report- US PREG EVAL 1ST [id number] 15:04:00Patient Name: IDANIA DALEY Unit No: [id number] EXAMS: CPT CODE: [id number] US PREG EVAL [address]ST [address] [facility] [address] [place], [place] [address] OBSTETRICAL ULTRASOUND REPORT Pat. Name: IDANIA DALEY Pat. No: [id number] Study Date: 02/06/2019 1:53pm , Age: 03 1980, 38 Pregnancies: 4, Para 3 LMP: 11/06/2018 GA by LMP: 13w1d GA by US: 13w2d GA Selected: 13w1d (LMP) MARIANA: 08/13/2019 Referring MD: GARRY MORAN Director Of National Sales: Lacey Levin RDMS, RVT CPT4: [id number] Admitting MD: GARRY MORAN/Ind: SCAN 1 VIABILITY GA ASUREMENTS AGE GROWTH EVALUATION Measurement GA Range Srce %for GA Ratios ----- ---- ------- CRL 7.4 cm 13w4d (67x9g-05b7m) Hadl CRL 67% FL 1.1 cm 13w1d (63j5s-90k4e) Hadl FL 50% GA for sonogram 13w2d (13c0c-50m2b) based on (CRL,FL) Avg Cervical Length: 3.7 cm Heart Rate: 162 bpm MATERNAL ANATOMY Ovaries LxHxW (cm) Right 3.7 x 1.9 x 2.3 Vol: 8.5cc Left 4.4 x 2.4 x 2.1 Vol: 11.6cc CLINICAL SUMMARY Type of Gestation: Schwartz Intrauterine in variable presentation. motion and organs seen: heart motion seen Placental location: Forming Amniotic fluid volume is normal. Uterus and adnexa: Left ovarian CLC 30 x 18 x 20mm Billie Gore M.D. Electronic Signature 02/06/2019 03:04pm [facility] NAME: IDANIA DALEY Radiology Department PHYS: - Garry Moran MD [address] : 1980 AGE: 38 SEX: F [place], [place] [address] LOC: AyannaRAD PHONE #: [phone] EXAM DATE: 02/06/2019 STATUS: PRE CLI FAX #: [phone] RAD NO: Page 1 Signed Report (CONTINUED) Patient Name: IDANIA DALEY Unit No: [id number] EXAMS: CPT CODE: [id number] US PREG EVAL 1ST [id number] (Continued) at 1504 Reported and signed by: Billie Gore MD CC: Garry Moran MD Technologist: Lacey Levin RDMS, RVT Probe: Trnscrbd D/ (1504) [email or web address] Orig Print D/T: S: 02/06/2019 (1503) [facility] NAME: IDANIA DALEY Radiology Department PHYS: [facility] [address] : 1980 AGE: 38 SEX: F [place] [address] LOC: AyannaRAD PHONE #: [phone] EXAM DATE: 02/06/2019 STATUS: PRE CLI FAX #: [phone] RAD NO: Page 2 Signed Report Patient Name:IDANIA DALEY Unit No: [id number] EXAMS: CPT CODE: [id number] US PREG EVAL 1ST TRIMTR 50637 (Continued) [facility] NAME: IDANIA DALEY Radiology Department PHYS: Rajwinder Moran MD [address] : 1980 AGE: 38 SEX: F [place] [address] LOC: AyannaRAD PHONE #: [phone] EXAM DATE: 02/06/2019 STATUS: PRE CLI FAX #: [phone] RAD NO: Page 3 Signed Report- US PREG UT TRANSVAGINAL 2019-02-06 15:04:00Patient Name: IDANIA DALEY Unit No: [id number] EXAMS: CPT CODE: [id number] US PREG UT TRANSVAGINAL [address] [facility] [address] [place], [place] [address] OBSTETRICAL ULTRASOUND REPORT -------- Pat. Name: IDANIA DALEY Pat. No: [id number] Study Date: 02/06/2019 1:53pm , Age: 03 1980, 38 Pregnancies: 4, Para 3 LMP: 11/06/2018 GA by LMP: 13w1d GA by US: 13w2d GA Selected: 13w1d (LMP) MARIANA: 08/13/2019 Referring MD: Garry Moran Director Of National Sales: Lacey Levin RDMS, RVT CPT4: [id number] Hist/Ind: SCAN 1 VIABILITY MEASUREMENTS AGE GROWTH EVALUATION Measurement GA Range Srce %for GA Ratios ----- ---- ------- CRL 7.4 cm 13w4d (80q9v-07a5p) Hadl CRL 67% FL 1.1 cm 13w1d (05z2i-19f2s) Hadl FL 50% GA for sonogram 13w2d (77g1q-70r8v) based on (CRL,FL) Avg Cervical Length: 3.7 cm Heart Rate: 162 bpm MATERNAL ANATOMY Ovaries LxHxW (cm) Right 3.7 x 1.9 x 2.3 Vol: 8.5cc Left 4.4 x 2.4 x 2.1 Vol: 11.6cc CLINICAL SUMMARY Type of Gestation: Schwartz Intrauterine in variable presentation. motion and organs seen: heart motion seen Placental location: Forming Amniotic fluid volume is normal. Uterus and adnexa: Left ovarian CLC 30 x 18 x 20mm Billie Gore M.D. Electronic Signature 02/06/2019 03:04pm [facility] NAME: IDANIA DALEY diology Department PHYS: [email or web address] - Garry Moran MD [address] : 1980 AGE: 38 SEX: F [place], [place] [address] LOC: MESSI PHONE #: [phone] EXAM DATE: 02/06/2019 STATUS: PRE CLI FAX #: [phone] RAD NO: Page 1 Signed Report (CONTINUED) Patient Name: IDANIA DALEY Unit No: [id number] EXAMS: CPT CODE: [id number] [facility] TRANSVAGINAL [address] (Continued) at 1503 Reported and signed by: Billie Gore MD CC:Garry Moran MD Technologist: Lacey Levin RDMS, RVT Probe: [id number] Trnscrbd D/ (1501) Kunal Orig Print D/T: S: 02/09/2019 (2538) [facility] NAME: IDANIA DALEY Radiology [facility] Garry Moran MD [address] : 1980 AGE: 38 SEX:F [place] [address] LOC: AyannaRAD PHONE #: [phone] EXAM DATE: 02/06/2019STATUS: PRE CLI FAX #: [phone] RAD NO: Page 2 Signed Report Patient Name: IDANIA DALEY Unit No:[id number] EXAMS: CPT CODE: [id number] PREG UT TRANSVAGINAL [address] (Continued) [facility] NAME: IDANIA DALEY Radiology Department PHYS: NERIS Ojeda Garry Moran MD [address] : 1980 AGE: 38 SEX: F [place] [address] LOC: AyannaRAD PHONE #: [phone] EXAM DATE: 02/06/2019 STATUS: PRE CLI FAX #: [phone] RAD NO: Page 3 Signed Report Notes Date/Time Note Provider Source 2023-09-08 08:51:00 [id number] [place] [address] PATIENT NAME: IDANIA DALEY ADMIT DATE: 09/07/23 ACCOUNT NO: [id number] ROOM NO: [facility] AGE: 43 SEX: F ADMITTING PHYSICIAN: Martha Chong MD ATTENDING PHYSICIAN: Martha Chong MD OPERATION DATE: 09/07/2023 PREOPERATIVE DIAGNOSES: 1. Menometrorrhagia. 2. Enlarged uterus. 3. Endometrial polyp. 4. Pelvic pain. POSTOPERATIVE DIAGNOSES: 1. Menometrorrhagia. 2. Enlarged uterus. 3. Endometrial polyp. 4. Pelvic pain. 5. Endometriosis. PROCEDURES: 1. Robotically assisted total laparoscopic hysterectomy, bilateral salpingectomy. 2. Robotically assisted laparoscopic excision of endometriosis. 3. Robotically assisted laparoscopic lysis of adhesions. SURGEON: Martha Chong MD LINE PILOT: Haroon Massey ANESTHESIA: General. ESTIMATED BLOOD LOSS: 100 mL INTRAVENOUS FLUIDS: 1200 mL URINE OUTPUT: 500 mL of clear urine. COMPLICATIONS: None. COUNTS: Correct. FINDINGS: A 12-week size uterus with bladder adherent to the mid and lower uterine segment, evidence of bilateral tubal ligation, normal ovaries bilaterally. Endometrial implants on the left pelvic sidewall, posterior cul-de-sac and right pelvic sidewall, colon adhered to left abdominal sidewall. Omental adhesion to the anterior abdominal wall. Normal-appearing upper abdomen. PATIENT NAME: IDANIA DALEY INDICATIONS: The patient is a 42-year-old 4, para 4, who presented with menometrorrhagia. The patient was found on ultrasound to have enlarged uterus as well as a possible endometrial polyp. The patient also had chronic pelvic pain and was noted to have endometriosis. Risks, benefits and alternatives were discussed with the patient. The patient agreed to above-named procedures. PROCEDURE IN DETAIL: The patient was taken to the OR with IV in place. She was induced under general anesthesia without difficulty. The patient was given Ancef preoperatively for prophylaxis as well as Lovenox 40 mg subcutaneously for DVT prophylaxis. The patient was placed in dorsal lithotomy position in [facility]. She was prepped and draped in the usual sterile manner. Vee catheter was placed in bladder sterilely. Anterior lip of the cervix was grasped with single tooth tenaculum. Cervix was gently dilated from size 9 to size 15 using Brant dilators. Uterus was gently sounded to 12 cm. Stay sutures were placed at 3 o'clock and 9 o'clock, a 12 cm CARROLL uterine manipulator, 3.0 colpotomizer ring and vaginal occluder were then placed in the uterus, on the cervix and in the vagina respectively. These were attached to stay sutures. Vaginal occluder was filled with 60 mL of saline. The patient was then placed flat. Attention was then turned to the abdomen. Due to prior section x4 with anticipation of possible intra-abdominal adhesions, entry was made in Ortega's point. Approximately 3 fingerbreadths below the costal margin along the left midclavicular line, 8 mm transverse incision was made using the AirSeal port and 5 mm 0-degree scope direct entry into the abdominal cavity was accomplished easily. CO2 gas was then used to insufflate the abdomen with pressure limit set at 15 mmHg. The patient was then placed in Trendelenburg. Survey of the abdomen revealed an omental adhesions below the umbilicus in the midline. Uterus was noted to be enlarged. Upper abdomen was within normal limits. Umbilical port site trocar was placed under direct visualization as well as 2 ancillary ports, one in right lower quadrant, one in the left lower quadrant, all 8 mm ports. Laparoscope was removed. Robot was docked. Fenestrated bipolar instrument was placed in the left lower quadrant. Monopolar instrument was placed in right lower quadrant. Laparoscope was placed in the umbilical port site. Omental adhesions to anterior abdominal wall was carefully lysed. At that point, colon was noted to be adhered to left abdominal sidewall. These adhesions were carefully lysed with extreme care to avoid injuring colon. At that point, the left adnexal area was more easily visualized. The patient was pretreated with IV Benadryl. ICG dye was injected intravenously. Pelvis was then thoroughly inspected and endometrial implants were then noted along the left pelvic sidewall and the posterior cul-de-sac and along the right pelvic sidewall. No lesions were noted anteriorly; however bladder was noted to be adhered to the mid and lower uterine segment. Attention was first turned to the left pelvic sidewall. Ureter was identified. Incision was made in the peritoneum. Hydrodissection was performed. Endometrial implants were then carefully circumscribed and excised adjacent in the area of the left ovarian fossa. Another cluster of lesions were circumscribed and excised along the left pelvic sidewall adjacent to the left uterosacral ligament. Attention was then turned to lesions in the posterior cul-de-sac. Lesion in the mid posterior cul-de-sac was carefully circumscribed and excised with extreme care to avoid injuring rectum. Another cluster of lesions was circumscribed and excised in the right posterior cul-de-sac. Attention was then turned to the right pelvic sidewall. Again, ureter was identified. Incision was made in the peritoneum. Hydrodissection was performed. The lesions along the right pelvic sidewall carefully circumscribed and excised. At that point, no other obvious lesions were noted. Attention was then turned to the left adnexal area. Left PATIENT NAME: IDANIA DALEY uteroovarian ligament was cauterized using bipolar instrument then divided using monopolar scissors. Left round ligament was divided in similar fashion. Bladder was then back filled. Anterior leaflet was incised and dense adhesions of the bladder to the anterior uterus were carefully lysed with extreme care to avoid injuring the bladder. Bladder flap was then developed in the midline. Uterine vessels were then skeletonized on the left side by incising posterior peritoneum. Uterine vessels were then cauterized at the level of the internal cervical os. Attention was then turned to the right side. Right uteroovarian ligament was cauterized using bipolar instrument then divided using monopolar scissors. Right round ligament was divided in similar fashion. Anterior leaf of the peritoneum was incised and carried out medially to meet the other side. Bladder was additionally dissected off lower uterine segment on the right side. Uterine vessels were skeletonized on the right side by incising posterior peritoneum. Uterine vessels were then cauterized at the level of the internal cervical os. After assuring that the bladders were dissected off the lower uterine segment, colpotomy was performed at the cervicovaginal junction anteriorly from 10 o'clock to 2 o'clock. Uterine vessels were then again encountered on the right side, were cauterized using bipolar instrument then divided using monopolar scissors. Colpotomy was continued posteriorly over to the left side. Left uterine vessels were cauterized using bipolar instrument then divided using monopolar scissors. Colpotomy was completed. Uterus was then brought partially into the vagina, left in place to maintain pneumoperitoneum. Attention was then turned to the left adnexa. Left fallopian tube was elevated and a note was noted to be adhered to the ovary. Adhesions were carefully lysed. Mesosalpinx was then incised to excise the tube. Tube was removed through the cable splicer assistant port. Same was performed on the right side. At that point, the uterus was removed through as 0 V-Loc suture was introduced into the pelvis. Sterile sponge and glove was placed in the vagina to maintain pneumoperitoneum. Vaginal cuff was then closed in 2 layers, first to reapproximate the vaginal mucosa from right apex over to the left apex. Same suture was used to reapproximate the endopelvic fascia from left apex over to right apex. Suture was then ran back towards the midline. Pelvis was then thoroughly irrigated and checked under low pressure. Good hemostasis was noted. Good peristalsis was noted bilaterally. Due to extensive dissection, Vistaseal was sprayed in the pelvis over the vaginal cuff as well as bilateral vascular pedicles and posterior cul-de-sac. Good hemostasis was confirmed. All instruments were then removed. Robot was undocked. Pneumoperitoneum was evacuated. Trocars removed. Skin was closed using 4-0 Vicryl subcuticular stitch in all port sites and sealed with Dermabond. A 0.25% Marcaine was injected in all port sites. Vee catheter was removed. Speculum exam of vagina revealed that the cuff was intact and hemostatic. No vaginal lacerations were noted. The patient was removed from dorsal lithotomy position, awoken from general anesthesia without difficulty. The patient tolerated the procedure well. Throughout the case, Haroon Massey acted as electrician assistant. He provided protection and retraction. He performed suction for visualization. He participated in the positioning of the patient as well as the closure of the wounds. Without his assistance, the surgery could not have been performed safely or to adequate accepted medical standards. Therefore his assistance was considered medically indicated and necessary. Dictated By: Martha Chong MD Date Dictated: 09/08/2023 08:51:24 PATIENT NAME: IDANIA DALEY Date Transcribed: 09/08/2023 09:37:34 NNT/MORGAN Receipt ID: [id number] Authenticated and Edited by Martha Chong MD On 09/19/23 8:23:19 PM at 0824 PATIENT NAME: IDANIA DALEY [facility] 2023-09-08 08:31:00 [facility] Gynecology Post Prog Note REPORT#:[id number] REPORT STATUS: Signed REPORT INITIALIZATION DATE:09/08/23 TIME: 830 PATIENT: IDANIA DALEY UNIT #: [id number] ROOM/BED: [facility]-A : [birth year] AGE: 42 SEX: F ATTEND: Martha Chong MD ADM AUTHOR: Martha Chong MD REPT SERVICE DT/TIME: 09/08/23 0831 * ALL edits or amendments must be made on the electronic/computer document * General Post-op: day 1 Status post: RATLHBS, EOE, GLENN Subjective Comments: Pt doing well. Michelle reg diet. Voiding well. Pain controlled. Objective General VS/I O: Last Documented: Result Date Time Pulse Ox 96 09/07 0446 B/P 130/83 09/07 0446 B/P Mean 98.9 09/07 0446 O2 Delivery Room air 09/07 044 Temp 98.4 09/07 0446 Pulse 98 09/07 044 Resp 17 09/07 044 O2 Flow Rate 10 09/06 1415 24 hour I O ending at 0700: 09/07 0700 09/06 1900 Intake Total 500.00 2090.00 Output Total 400 700 Balance 100.00 1390.00 Intake, IV 500.00 1650.00 Intake, Oral 440 Output, 100 Estimated Blood Loss Output, Urine 400 600 Patient 99.1 kg Weight Weight Standing scale Measurement Method PATIENT WEIGHT: Weight (lb): 218 Weight (oz): 7.65 Weight (kg): 99.100 Physical Exam General appearance: alert, awake Wound/incision: Location: abd Site condition: edges approximated, incision intact Abdomen: normal bowel sounds, soft, no distention Results Findings/Data: Laboratory Tests 09/07 0400 Hematology WBC (6.5 - 12.3 K/mm3) 13.4 H RBC (3.51 - 4.69 M/mm3) 3.72 Hgb (10.1 - 13.8 g/dL) 9.9 L Hct (32.5 - 41.8 %) 31.5 L MCV (84.6 - 96.6 fL) 84.7 MCH (27.3 - 33.9 pg) 26.6 L MCHC (32.0 - 34.2 gm/dL) 31.4 L RDW (12.2 - 16.3 %) 13.3 Plt Count (134 - 363 K/mm3) 333 MPV (9.2 - 12.7 fL) 10.1 Neut % (Auto) (57.9 - 77.3 %) 78.2 H Lymph % (Auto) (14.5 - 29.7 %) 14.4 L Broome % (Auto) (3.6 - 10.2 %) 6.9 Eos % (Auto) (0.0 - 3.0 %) 0.0 Baso % (Auto) (0.1 - 0.9 %) 0.3 Neut # (Auto) (K/mm3) 10.5 Lymph # (Auto) (K/mm3) 1.9 Broome # (Auto) (K/mm3) 0.9 Eos # (Auto) (K/mm3) 0 Baso # (Auto) (K/mm3) 0.0 Diagnosis, Assessment Plan Free Text A P: Doing well. HD stable. Good U/O and GI fxn. Plan: Cont reg diet PO pain meds D/C today Precautions given at 0833 RPT #:[id number] END OF REPORT [facility] 2023-09-03 16:14:00 [id number] [place] [address] PATIENT NAME: IDANIA DALEY ADMIT DATE: ACCOUNT NO: [id number] ROOM NO: AGE: 42 SEX: F ADMITTING PHYSICIAN: ATTENDING PHYSICIAN: Martha Chong MD Order: [id number] Test Reason : PRE- OP (09/07/2023) Test Date/Time Stamp: WedSep 03 2023 16:14:03 Blood Pressure : / mmHG Vent. Rate : 099 BPM Atrial Rate : 099 BPM P-R Int : 162 ms QRS Dur : 088 ms QT Int : 354 ms P-R-T Axes : 040 -06 019 degrees QTc Int : 454 ms Normal sinus rhythm Normal ECG No previous ECGs available Confirmed by SHELLEY COOLEY MD ([id number]) on 09/06/2023 6:07:33 PM Referred By: DOES_NOT KNOW Confirmed by:SHELLEY COOLEY MD at 1805 PATIENT NAME: IDANIA DALEY [facility] 2019-08-13 12:03:00 [id number] [place] [address] PATIENT NAME: IDANIA DALEY ADMIT DATE: 07/24/19 ACCOUNT NO: [id number] ROOM NO: [facility] AGE: 38 SEX: F ADMITTING PHYSICIAN: Garry Moran MD ATTENDING PHYSICIAN: Garry Moran MD ADMISSION DATE: 07/24/2019 DISCHARGE DATE: 07/27/2019 ADMITTING DIAGNOSES: G4, P3 at 37 and 1/7th weeks; chronic hypertension; superimposed preeclampsia; prior low transverse section x3; multiparity, desires permanent sterilization; Rh negative; iron deficiency anemia; left ovarian cyst; and urinary tract infection. DISCHARGE DIAGNOSES: G4, P3 at 37 and 1/7th weeks; chronic hypertension; superimposed preeclampsia; prior low transverse section x3; multiparity, desires permanent sterilization; Rh negative; iron deficiency anemia; left ovarian cyst; urinary tract infection; repeat low transverse section; and bilateral tubal ligation. DISCHARGE MEDICATIONS: Clayton 5, Motrin, vitamins, and labetalol 100 mg p.o. b.i.d. DISCHARGE INSTRUCTIONS: Pelvic rest, no heavy lifting, wound and fever precautions, blues and depression precautions, and preeclampsia precautions. Follow up with Dr. Moran in 6 weeks. Blood pressure checks at home twice a day. Call for blood pressure over 160/100 or symptoms. HOSPITAL COURSE: Ms. Daley was admitted on the July 24 from the clinic at which point she was having blood pressures in the 150s over 110 at 37 and 1/7th weeks. She had previously been scheduled for a repeat on the August 02 and underwent her section and tubal ligation at the time of admission. Per Dr. Chowdary's report, there was no left ovarian cyst present. Her surgery was uncomplicated. On postoperative day #1, she was doing well with adequate pain control and adequate blood pressure control on her labetalol. Her hemoglobin and hematocrit preoperatively was 12.1 and 38.7 and on postoperative day #1, was 11.6 and 35.9. On postoperative day #2, her diet was advanced. Her epidural was removed. She was started on oral pain medication. On postoperative day #3, she was discharged home with the above noted prescriptions and precautions. She was also given Macrodantin 100 mg b.i.d. to continue for a total of 7 days. This was cleared with the director public. Dictated By: Garry Moran MD WT: DS:[email or web address].GET Conf#: [id number]/DID#: [id number] PATIENT NAME: IDANIA DALEY Authenticated by Garry Moran MD On 08/13/2019 12:47:03 PM at 1247 PATIENT NAME: IDANIA DALEY [facility] 2019-07-27 08:36:00 [facility] OB Postpart Progr Note REPORT#:[id number] REPORT STATUS: Signed DATE:07/27/19 TIME: 08 PATIENT: IDANIA DALEY UNIT #: [id number] ROOM/BED: 2036- : 81 AGE: 38 SEX: F ATTEND: Garry Moran MD ADM AUTHOR: Garry Moran MD * ALL edits or amendments must be made on the electronic/computer document * Subjective Subjective Comments: No complaints. Wants to go home. Eating. Voiding. Ambulating. Good pain control. No headaches. DW patient circ care Objective Nursing Documentation Review Nursing data: The data set between the solid lines has been imported from nursing documentation. Any exceptions have been noted below under Provider comments. Feeding preference: Provider comments on imported nursing data: [] General VS: Vital Signs Date Temp Pulse Resp B/P B/P Mean Pulse Ox FiO2 /-07/27 97.7-99.1 88-106 18 113-122/67-80 90.0 Last Documented: Result Date Time B/P 118/73 07/27 035 Temp 98.5 07/27 0358 Pulse 88 07/27 0358 Resp 18 07/27 0358 B/P Mean 90.0 07/26 1610 Pulse Ox 92 / 2130 Patient Weight Weight (lb): 248 Weight (oz): Weight (kg): 112.491 Physical Exam Incision site: well approximated edges, selma intact, dry, no drainage, no inflammation Fundus: firm, below the umbilicus, non-tender Lower extremities: Edema: none Diagnosis, Assessment Plan Diagnosis, Assessment Plan Comments: POD 3 Repeat LTCS/BTL, CHTN SI PE Doing well Continue labetolol Rx NOrco 5, motrin Continue macrodantin x 5 days FU 6 weeks Prec given at 0838 RPT #:[id number] END OF REPORT [facility] 2019-07-26 09:10:00 [facility] ([facility]) OB Postpart Progr Note REPORT#:[id number] REPORT STATUS: Signed DATE:07/26/19 TIME: 09 PATIENT: IDANIA DALEY UNIT #: [id number] ROOM/BED: 2036-A : 81 AGE: 38 SEX: F ATTEND: Garry Moran MD ADM AUTHOR: Garry Moran MD * ALL edits or amendments must be made on the electronic/computer document * Subjective Subjective Comments: When I walked in the room, patient states "I want to go home. I want my baby". DW patient baby in NICU. She does not understand why. She is being communicated with by Dr. Zee Moran and NICU staff but does not understand "saturation". I dw patient reasons, ?s answered. Baby doing well and likely to be transferred to general nursery today. She will want him circumcised. Objective Nursing Documentation Review Nursing data: The data set between the solid lines has been imported from nursing documentation. Any exceptions have been noted below under Provider comments. Feeding preference: Provider comments on imported nursing data: [] General VS: Vital Signs Date Temp Pulse Resp B/P B/P Mean Pulse Ox FiO2 /-07/26 97.6-99.1 90-100 18-20 102-121/66-75 85.7-90.5 Last Documented: Result Date Time B/P 113/72 07/26 033 Temp 98.7 07/26 0339 Pulse 92 07/26 0339 Resp 18 07/26 0339 B/P Mean 85.7 / 0339 Pulse Ox 92 / 2130 Patient Weight Weight (lb): 248 Weight (oz): Weight (kg): 112.491 Physical Exam Incision site: well approximated edges, selma intact, dry, no drainage, no inflammation Lower extremities: Edema: 1+ pitting Result Findings/data: Laboratory Tests 07/24 1355 Chemistry Uric Acid (2.6 - 6.0 mg/dL) 4.7 AST (15 - 37 units/L) 33 ALT (12 - 78 units/L) 24 Lactate Dehydrogenase (81 - 234 units/L) 198 Laboratory Tests 07/25 07/24 0437 1355 Hematology WBC (6.6 - 12.1 K/mm3) 15.5 H 8.1 RBC (3.45 - 5.01 M/mm3) 4.01 4.32 Hgb (10.7 - 13.9 g/dL) 11.6 12.1 Hct (32.1 - 42.1 %) 35.9 38.7 MCV (84.1 - 94.8 fL) 90 90 MCH (27 - 35 pg) 28.9 28.0 MCHC (32.2 - 34.1 gm/dL) 32.3 31.3 L RDW (12.4 - 16.5 %) 19.0 H 19.4 H Plt Count (133 - 385 K/mm3) 199 196 MPV (9.1 - 12.7 fl) 11.0 11.5 Neut % (Auto) (56.5 - 79.4 %) 85.4 H 72.7 Lymph % (Auto) (14.3 - 34.3 %) 8.2 L 18.1 Broome % (Auto) (5.1 - 10.4 %) 5.6 7.1 Eos % (Auto) (0.1 - 3.0 %) 0.1 1.0 Baso % (Auto) (0.1 - 1.0 %) 0.2 0.4 Neut # (Auto) (K/mm3) 13.2 5.9 Lymph # (Auto) (K/mm3) 1.3 1.5 Broome # (Auto) (K/mm3) 0.9 0.6 Eos # (Auto) (K/mm3) 0.01 0.08 Baso # (Auto) (K/mm3) 0.0 0.0 Laboratory Tests 07/24 1355 Serology Treponema pallidum Ab (NONREACTIVE) NONREACTIVE Hep Bs Antigen (NONREACTIVE) NONREACTIVE Hepatitis C Antibody (NONREACTIVE) NONREACTIVE Hep C Ab Signal/Cutoff (<0.80) 0.15 HIV 1 2 Antibody (NONREACTIVE) NONREACTIVE Laboratory Tests 07/24 07/24 1355 1355 Urines Urine Protein (NEGATIVE) NEGATIVE Urine Glucose (UA) (NEGATIVE) NEGATIVE Urine Ketones (NEGATIVE) 1+ Ur Random Creatinine (mg/dL) 78.8 U Random Total Protein (mg/dL) 33.0 Protein/Creatinin Ratio (<200 mg/gcrea) 410.0 H Diagnosis, Assessment Plan Diagnosis, Assessment Plan Comments: POD 2 Repeat LTCS/BTL for superimposed pre eclampsia on CHTN Doing well Circ on baby planned BP stable Likely home tomorrow Will need rx for meds Continue macrodantin for 7 days. Will confirm no bilirubin elevations with director public. at 0914 RPT #:[id number] END OF REPORT [facility] 2019-07-25 08:52:00 [facility] ([facility]) OB Postpart Progr Note REPORT#:[id number] REPORT STATUS: Signed DATE:07/25/19 TIME: 851 PATIENT: IDANIA DALEY UNIT #: [id number] ROOM/BED: [address] : 81 AGE: 38 SEX: F ATTEND: Garry Moran MD ADM AUTHOR: Zina Yadav MD * ALL edits or amendments must be made on the electronic/computer document * Subjective Subjective EGA weeks/days: 37 weeks Status/Day: post operative, d1 Patient reports: Patient reports: Yes normal lochia, Yes pain management effective, No no complaints Objective Nursing Documentation Review Nursing Data: The data set between the solid lines has been imported from nursing documentation. Any exceptions have been noted below under Provider comments. Feeding preference: Provider comments on imported nursing data: [] General VS: Vital Signs: Date Time Temp Pulse Resp B/P B/P Pulse O2 O2 Flow FiO2 Mean Ox Delivery Rate 02/04 0334 98.9 101 20 104/64 02/04 0334 99.0 101 20 104/64 77.1 02/03 2321 98.6 101 20 130/84 02/03 2322 98.6 101 20 130/84 99.3 02/03 2130 130/78 02/03 2130 93 14 92 02/03 5 89 16 94 02/03 2099 94.0 02/03 2099 92 25 128/72 93 02/03 2029 91.0 02/03 2030 95 02/03 2030 91 16 125/68 93 02/03 2014 92 18 94 02/03 1999 18 02/03 1999 89.0 02/03 1999 90 23 129/67 94 02/03 1945 89.0 02/03 1945 83 16 123/69 94 02/03 1931 96.0 02/03 1931 125/83 02/03 1931 90 18 97 02/03 1930 95 25 94 02/03 1915 81.0 02/03 1915 86 27 118/60 95 02/03 1901 90.0 02/03 1901 98.4 90 17 131/68 99 02/03 1900 92 32 94 02/03 1845 90.0 02/03 1845 82 19 119/71 95 02/03 1830 88.0 02/03 1830 83 17 119/68 95 02/03 1815 80.0 02/03 1815 83 18 115/59 95 02/03 1807 78.0 02/03 1807 98.6 82 17 106/57 96 02/03 1539 115.0 02/03 1539 86 149/91 02/03 1456 119.0 02/03 1456 90 162/93 02/03 1439 118.0 02/03 1439 92 158/92 02/03 1424 116.0 02/03 1424 84 154/93 02/03 1420 98.6 18 02/03 1324 107.0 02/03 1324 90 140/85 Patient Weight Weight (lb): 248 Weight (oz): Weight (kg): 112.491 Physical Exam Abdomen: soft Incision site: well approximated edges, selma intact, dry Uterus: involution appropriate, non-tender Fundus: below the umbilicus, non-tender Lochia: normal Result Findings/Data: Laboratory Tests: 07/25 07/24 07/24 0437 1355 1355 Chemistry Uric Acid (2.6 - 6.0 mg/dL) 4.7 AST (15 - 37 units/L) 33 ALT (12 - 78 units/L) 24 Lactate Dehydrogenase (81 - 234 units/L) 198 Hematology WBC (6.6 - 12.1 K/mm3) 15.5 H 8.1 RBC (3.45 - 5.01 M/mm3) 4.01 4.32 Hgb (10.7 - 13.9 g/dL) 11.6 12.1 Hct (32.1 - 42.1 %) 35.9 38.7 MCV (84.1 - 94.8 fL) 90 90 MCH (27 - 35 pg) 28.9 28.0 MCHC (32.2 - 34.1 gm/dL) 32.3 31.3 L RDW (12.4 - 16.5 %) 19.0 H 19.4 H Plt Count (133 - 385 K/mm3) 199 196 MPV (9.1 - 12.7 fl) 11.0 11.5 Neut % (Auto) (56.5 - 79.4 %) 85.4 H 72.7 Lymph % (Auto) (14.3 - 34.3 %) 8.2 L 18.1 Broome % (Auto) (5.1 - 10.4 %) 5.6 7.1 Eos % (Auto) (0.1 - 3.0 %) 0.1 1.0 Baso % (Auto) (0.1 - 1.0 %) 0.2 0.4 Neut # (Auto) (K/mm3) 13.2 5.9 Lymph # (Auto) (K/mm3) 1.3 1.5 Broome # (Auto) (K/mm3) 0.9 0.6 Eos # (Auto) (K/mm3) 0.01 0.08 Baso # (Auto) (K/mm3) 0.0 0.0 Serology Treponema pallidum Ab (NONREACTIVE) NONREACTIVE Hep Bs Antigen (NONREACTIVE) NONREACTIVE Hepatitis C Antibody (NONREACTIVE) NONREACTIVE Hep C Ab Signal/Cutoff (<0.80) 0.15 HIV 1 2 Antibody (NONREACTIVE) NONREACTIVE Urines Urine Protein (NEGATIVE) NEGATIVE Urine Glucose (UA) (NEGATIVE) NEGATIVE Urine Ketones (NEGATIVE) 1+ Ur Random Creatinine (mg/dL) 78.8 U Random Total Protein (mg/dL) 33.0 Protein/Creatinin Ratio (<200 mg/gcrea) 410.0 H Diagnosis, Assessment Plan Diagnosis, Assessment Plan Problem List/A P: 1. UTI (urinary tract infection) in in third trimester Assessment: nml progress, chronic hypertension, pre-eclampsia Plan: routine care Plan discussed with: patient, spouse/partner at 0854 RPT #:[id number] END OF REPORT [facility] 2019-07-24 18:08:00 [id number] [facility] [place] [address] PATIENT NAME: IDANIA DALEY ADMIT DATE: 07/24/19 ACCOUNT NO: [id number] [facility] AGE: 38 SEX: F ADMITTING PHYSICIAN: Garry Moran MD ATTENDING PHYSICIAN: Garry Moran MD OPERATION DATE: 07/24/2019 PREOPERATIVE DIAGNOSES: Intrauterine at 37-1/2 weeks with chronic hypertension, superimposed -induced hypertension with some severe features, but no proteinuria, multiparity with desire for permanent sterilization. POSTOPERATIVE DIAGNOSES: Intrauterine at 37-1/2 weeks with chronic hypertension, superimposed -induced hypertension with some severe features, but no proteinuria, multiparity with desire for permanent sterilization. OPERATIONS AND PROCEDURES: The patient underwent a repeat section, Pfannenstiel skin incision, low cervical transverse uterine incision, and bilateral tubal sterilization. SURGEON: Zina Yadav MD LINE PILOT: Radha Hernandez SA ANESTHESIA: Combined epidural spinal per Dr. Loyd. FINDINGS: Delivered a viable vigorous male at 1719 from the vertex position. Copious clear fluid. Weight was 3760, Apgars were 8 and 8 for color.Resolution previous ovarian cyst ESTIMATED BLOOD LOSS: 700 mL. COMPLICATIONS: None. DETAILS OF PROCEDURE: The patient was taken to the operating room where she received her epidural anesthetic per Dr. Loyd. She was placed in a supine position on the operating table with a wedge on the right hip and prepped and draped in standard fashion for section. Prepped and draped in standard fashion for section. A time-out procedure was performed. After verification of adequate anesthesia, a Pfannenstiel skin incision was made 2 fingerbreadths above the symphysis pubis utilizing a skin knife. Incision was taken down the fascia utilizing electrocautery unit with hemostasis achieved using electrocautery unit. The fascia was scored in the midline. Fascial incision was extended bilaterally in a curvilinear fashion utilizing the Benitez scissors. Fascia was removed from the underlying rectus muscle utilizing sharp and blunt dissection, both superiorly and inferiorly. Rectus muscle was divided in the midline. Peritoneum was entered bluntly and the incision was extended PATIENT NAME: IDANIA DALEY bluntly. Bladder blade was placed. Because of the patient's three previous C-sections, an incision was made relatively high in the lower uterine segment. The baby was encountered in the vertex position in clear fluid. The uterine incision was extended bluntly. The baby was delivered utilizing a single blade of a Knutson's forceps as a lever after artificial rupture of membranes with a clear fluid. Baby's head was delivered atraumatically. Nares and mouth were suctioned. Cord was clamped and cut and the infant was shown to his parents and handed to the nurse in attendance. Cord blood was obtained. Stem cells were then collected for MD Brothers. Upon completion, the placenta was given to MD Brothers. The placenta was then manually extracted from the uterus. Uterus was exteriorized and wrapped in a moist lap. The endometrial cavity was swabbed utilizing a moist lap. Bladder blade was then placed. Uterine incision was closed utilizing running suture of 0 Vicryl in a running-locking fashion. Multiple [id number] sutures were required for hemostasis. The area was inspected for hemostasis, which was noted to be excellent. A moist lap was placed across the lower uterine segment and the right tube was grasped utilizing a Justin clamp. An avascular space was noted in the mesosalpinx. Incision was made utilizing electrocautery. The 0 chromic was placed through the defect and the tube was tied proximally and distally utilizing 0 chromic. Multiple ties were made. The intervening segment of tube was resected and handed to the nurse in attendance to be tagged as right tube. Procedure was repeated on the opposite side. Uterus was then turned to the pelvic cavity, which was irrigated and suctioned. A small amount of bleeding was noted from the midpoint of the uterine incision and a [id number]-pu-[id number] suture was placed with excellent hemostasis. Both tubal sites were inspected for hemostasis, which was found to be excellent. Peritoneum was grasped with 3 hemostats and closed utilizing running suture of 2-0 Vicryl in a running fashion. Same suture was used to loosely reapproximate the rectus muscle in the midline. Subfascial area was irrigated, inspected, and hemostasis achieved using electrocautery unit. Fascia was closed utilizing an 0 Vicryl suture ligature in a running fashion. The Camper's and Sonido's were reapproximated utilizing 2-0 Vicryl suture ligature. Skin was reapproximated utilizing skin selma and a dressing was applied. Estimated blood loss was 700 mL. Mom, dad, and baby Manjeet tolerated the procedure well. Dictated By: Zina Yadav MD WT: OP:[email or web address]/GET Conf#: [id number]/DID#: [id number] Authenticated and Edited by Zina Yadav MD On 07/25/19 8:55:41 AM at 0858 PATIENT NAME: IDANIA DALEY [facility] 2019-07-24 17:56:00 [facility] ([facility]) OB Delivery Note REPORT#:[id number] REPORT STATUS: Signed DATE:07/24/19 TIME: 1755 PATIENT: IDANIA DALEY UNIT #: [id number] ROOM/BED: [address] : 81 AGE: 38 SEX: F ATTEND: Garry Moran MD ADM AUTHOR: Zina Yadav MD * ALL edits or amendments must be made on the electronic/computer document * OB Delivery Pre-delivery Meds prior to delivery: labetalol ancef evaluation at delivery: NRP certified personnel Admission EGA (wks/days): 37 1/7 weeks EGA at delivery (wks/days): 37 weeks Steroids Prior to Delivery Steroids prior to delivery: no, delivery on arrival General VS: Last Documented: Result Date Time B/P Mean 115.0 07/24 1539 B/P 149/91 07/24 1539 Pulse 86 07/24 1539 Temp 98.6 07/24 1420 Resp 18 07/24 1420 Baby A Information Baby A information Delivery date: 07/24/19 Delivery time: 1719 status: live born Wt of baby (grams): 3760 Gender: male, Manjeet Delivery section Abdominal incision: Pfannenstiel Primary indication: previous , Chronic htn with superimposed preeclampsia Priority: indicated (add on) Antibiotic prior to incision: 1 dose )(SCDs applied activated: Yes Incision: low transverse Hemorrhage: no Uterine scar: intact Consent: indication discussed, questions answered, pt consent to op delivery Mother's condition: mother stable 's condition: stable in room Additional comments: Surgeon Leif Pepe Repeat c/s BTL EBL 700 Comp none Blood Loss/Details Blood loss at delivery: <1000 ml EBL (ml's): 700 at 1800 RPT #:[id number] END OF REPORT [facility] 2019-07-24 12:43:00 [facility] ([facility]) OB Admission / H P REPORT#:[id number] REPORT STATUS: Signed DATE:07/24/19 TIME: 1243 PATIENT: IDANIA DALEY UNIT #: [id number] ROOM/BED: : 81 AGE: 38 SEX: F ATTEND: Garry Moran MD ADM AUTHOR: Garry Moran MD * ALL edits or amendments must be made on the electronic/computer document * OB Admission H P Hx Chief complaint: elevated blood pressure HPI: 38 yo WF @ 37 06/27 weeks who was seen in the office today in [place] with worsening BP. She has a h/o Chronic HTN and had been on Labetolol 100 mg BID the entire without problems. She was seen recently in [facility] with increasing BPs and later placed on modified bedrest at home on 07/19. Since then, her BPs have been up to 167/109. Today in the office her BP is 150/90 and 152/ 110. She also reports decreased FM today. There is no JAMA, visual changes, RUQ pain. No VB/LOF. PNC: Dr. Garry Moran 1. HTN-on meds before off and on. Started on Labetolol 100mg BID on @ 10 weeks and has remained on same dose throughout . Took baby ASA until 36 weeks 2. Prior C/S x 3 and MPDPS-scheduled for repeat c/section and bilateral salpingectomy. 3. RH negative-s/p Rhogam @ 29 06/27 weeks 4. Third trimester anemia-placed on iron 2x/day 5. 4 cm left ovarian cyst seen on early scan but adnexa not seen on f/u USG. To check left adnexa at the time of scheduled surgery 6. E. coli UTI (100,000) dx'd 07/14 and has not been treated yet. Sensitive to all abx tested. Culture done from [facility] at [facility] PNLabs: GBS positive, O negative, RI, HIV negative, HB neg, NR, GC/CH/Trich negative, NIPT normal boy, CF/SMA/FX negative, One hour @ 13 1/7 weeks 137 and @ 28 weeks was 128. H/H at 28 weeks 10.0/304. POB: T C Section, Largest was 8#15oz girl in 04/2009. No complications [employer]: Regular cycles. No abnormal pap smears. No STDs history: : 4 Term: 3 : 0 Abortus: 0 Living children: 3 Complications (prev preg): none Previous : low uterine trans incis Number of prev : 3 Indication for prior : arrest dilatation/descent Current : EDC: 08/13/19 Admission EGA (wks/days): 37 1/7 weeks EGA based on: LMP Conditions of : anemia, HTN-chron w/pre-eclampsia, kidney/bladder infection Labs: Blood type: See HPI above Past medical history: migraines, obesity, UTI, Migraines; HTN-dx'd 2016. Previously on losartan (with infrequent use); Vitamin D Deficiency; Obesity Past surgical history: 2003 Breast Implants; 08/23/2001 c/s; 03/05/2006 c/s; 2008 c/s; 03/2018 Hysteroscopic removal of IUD; 2014 Tonsillectomy; [employer] Social history: employed, , no alcohol use, no tobacco use, no drug use, -Sohan Medications: Home Medications: IRON AG FUM/VIT C/FA/MV/CA THREONATE (FERREX 28) 1 TAB PO DAILY LABETALOL (TRANDATE) 100 MG PO BID PNV WITH FE FUMARATE/FA () 1 TAB PO DAILY Allergies Coded Allergies: No Known Allergies (07/24/19) Objective General VS: 249 lbs today in the office BP in office 152/100, 150/90 Patient Weight Weight (lb): 248 Weight (oz): Weight (kg): 112.321785 Physical Exam Abdomen: gravid, soft, no abnormal tenderness, no guarding, no rebound tenderness Pelvic exam: Pelvis clinically adequate: cl/thick/high Membranes: Membranes: Intact Lower extremities: Edema: 1+ pitting Diagnosis, Assessment Plan Diagnosis, Assessment Plan Problem List/A P: 1. UTI (urinary tract infection) in in third trimester Comments: 38 yo at 37 1/7 weeks with prior c/s x 3 and MPDPS. CHTN with worsening BPs in the severe range. Admit for deliery by Repeat LTCS/Bilateral Salpingectomy. I have dw Dr. Yadav Please check adnexa for left ovarian cyst seen on early USG (and adnexa not visualized on fu scan). Obesity Having a boy and Dr. Moran with do circ on Wednesday or Pedi Dr. eZe Moran at [facility] then Dr. Griffiths planned Continue labetolol 100 mg BID pp Continue oral abx pp for UTI treatment RH negative-s/p Rhogam on 05/29 Flu shot done 04/30/19 TDAP done 06/12/19 at [id number] RPT #:[id number] END OF REPORT [facility] 2019-07-14 16:45:00 [id number] [facility] [address] [place], [place] [address] PATIENT NAME: IDANIA DALEY ADMIT DATE: 07/14/19 ACCOUNT NO: [id number] ROOM NO: AGE: 38 SEX: F ADMITTING PHYSICIAN: ATTENDING PHYSICIAN: Garry Moran MD TRIAGE EVALUATION: 07/14/2019 HISTORY OF PRESENT ILLNESS: The patient is a 38-year-old G4, P3-0-0-3, with last menstrual period in 10/2018, and estimated date of confinement 08/13/2019. She presented at 35-5/7 weeks, complaining of increased blood pressures at work. She states she noted that her fingers on her right hand had become numb and purple. A coworker suggested she check her blood pressure. She was using the cuff in the office, not the usual cuff she uses at home and her pressure was 155/105. [facility] in [facility]; however, all blood pressures have been within normal limits and less than 140/90. Her highest was 123/[address] Moran gave orders for labs to be drawn and asked that I see the patient in the 30-minute window for EVA, was notified at 1:53 and patient evaluation began at 2:14 p.m. She denies headache, vision changes, right upper quadrant pain, or other preeclampsia symptoms. She denies fever, chills, diarrhea, constipation or dysuria. She does report some nausea earlier prior to arrival but no vomiting. She denies vaginal bleeding or leakage of fluid. She reports occasional contractions every 1 to 2 hours and reports good movement. She does have chronic hypertension and has been taking her labetalol as instructed with good control of her pressures on home monitoring and in clinic previously. Her care has been with Dr. Moran. Her next visit is scheduled for 07/24/2019. Her care began at approximately 9 weeks' gestation in this . She states other than the chronic hypertension well controlled with labetalol, she has had no complications during the and all labs and ultrasounds have been normal. PAST MEDICAL HISTORY: Chronic hypertension diagnosed in 2012, controlled with losartan prior to the , although she did stop it prior to conception and since , she has used labetalol. PAST SURGICAL HISTORY: section x3. Also, breast augmentation in 2002 and tonsils in 2013 and wisdom teeth in 1995. ALLERGIES: NO KNOWN DRUG ALLERGIES. MEDICATIONS: vitamins, baby aspirin daily, iron 2 tablets at one time daily and labetalol 100 mg twice daily. OBSTETRICAL HISTORY: In 2001, full term section for failure to progress, delivered of a female weighing 8 pounds 12 ounces. In 2005, full-term section without trial of labor, delivered of a female infant PATIENT NAME: IDANAI DALEY weighing 7 pounds 15 ounces. In 2008, full term section, without trial of labor, delivered of a female weighing 8 pounds 15 ounces. The patient denies complications in any of the pregnancies. GYNECOLOGIC HISTORY: Menarche at age 14 with regular monthly cycles lasting 7 days, moderate in amount with minimal cramping. She denies prior history of STDs and reports all Pap smears normal. SOCIAL HISTORY: The patient denies tobacco or illicit drug use. She reports occasional prepregnancy alcohol use. She lives with her spouse, a 39-year-old male with hypertension and her 3 daughters. 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 She states her job is stressful, working in the [employer] for child support. FAMILY HISTORY: Parents both with hypertension. Maternal grandmother with history of breast cancer and the uterine cancer. Maternal grandfather with heart disease. Paternal grandmother with lung cancer, she was a smoker, she also had hypertension. Paternal grandfather with unknown type of cancer, he was also a smoker. The patient has 1 sister living and healthy and her 3 daughters, the youngest with asthma. Otherwise, the older two are healthy. The patient reports her 's uncle has Down syndrome. He does not think his grandmother was over 35 at the time of delivery. Otherwise, no mental retardation or defects in either family. The patient did have chromosomal testing earlier in the and reports it was negative. REVIEW OF SYSTEMS: A 10-point review of systems is negative except as stated above. PHYSICAL EXAMINATION: GENERAL: The patient is a well-nourished, well-developed white female, in no acute distress, lying on triage stretcher in [facility]. VITAL SIGNS: Height 5 feet 1 inches, weight prior to the 180 pounds and at most recent visit to clinic 240 pounds, blood pressure 123/72, pulse 87, respirations 18, and temperature 99.1. HEAD AND NECK: Within normal limits without lymphadenopathy or thyromegaly. CHEST: Clear to auscultation bilaterally with regular rate and rhythm. BREASTS: Deferred. ABDOMEN: Soft, nontender, gravid with a fundal height of 37 cm. No pelvic exam was performed as the patient denied contractions and none were seen on ____. EXTREMITIES: Show 1+ edema to mid calf. Bilateral patellar reflexes 2+. NEUROLOGIC: Nonfocal. The patient is awake, alert, and oriented x3. DIAGNOSTIC DATA: NST is category 1 with baseline heart tones in the 130s with multiple 15 x 15 accelerations, no decels, and no contractions noted. LABORATORY DATA: Labs ordered by Dr. Moran included white blood cell count of 8.9, hemoglobin 11.8, hematocrit 37.5, and platelets 191,000. BUN 9, creatinine 0.6, ALT 21, AST 21, uric acid 4.7, and LDH 176. Urinalysis with 2+ ketones, positive for nitrites, otherwise negative with 3-5 rbc's, 6-10 wbc's, few epithelial cells, and moderate amount of bacteria consistent with urinary tract infection. Urine culture has been sent, but results will not be available for approximately 48 hours. ASSESSMENT AND PLAN: This is a 38-year-old G4, P3 at 35-5/7 weeks with history of chronic hypertension, normally well controlled on labetalol, but with PATIENT NAME: IDANIA DALEY reported elevated blood pressure at work earlier today. On workup in [facility], all blood pressures are normal and no evidence of superimposed preeclampsia on her labs. The patient does report excess maternal weight gain. She is now noted to have a urinary tract infection and ketonuria. She is discharged home in stable condition with reassuring status. She is encouraged to drink at least 100 ounces of water daily and eat frequent small healthy meals. At work, she should avoid sitting for prolonged periods of time and when she is sitting, she should prop her feet and walk around the bed every few hours. She is given a script for Macrobid for the urinary tract infection. She is to start her script today and take one pill every 12 hours until finished. She is encouraged to perform kick counts nightly. Instructions and handout are given. The above information was discussed with Dr. Moran and she agreed with the plan. Dictated By: Rosie Hdez MD WT: HP:CHANDRIKA/DAKOTA/GET Conf#: [id number]/DID#: [id number] Authenticated and Edited by Rosie Hdez MD On 08/01/19 7:58:29 AM at 0800 PATIENT NAME: IDANIA DALEY [facility]
[2024-01-23] MEDS ORDERED: AMOX/K CLAV 875 MG TAB ONE (10:58)
[2024-01-23] MEDS ORDERED: KETOROLAC 30 MG/ML INJ ONE (10:58)
[2024-01-23] MEDS ORDERED: HYDROCODONE/APAP 5/325 MG TAB ONE (10:59)
[2024-01-23] MEDS ORDERED: LIDOCAINE 1% MPF 30 ML VIAL ONE (10:59)
--- NOTE | 2024-01-23 11:21 | EDPHYS ---
Physician Documentation [facility] Name: Christa Montero Age: 43 yrs Sex: Female : 1980 Arrival Date: 01/23/2024 Time: 10:42 Bed 12 Private MD: Conrado Patel HPI: 01/22 10:56 This 43 yrs old Female presents to ER via Ambulatory with complaints of ec2 Toothache, Facial Swelling. 10:56 Patient arrives today for left upper dental pain as well as overlying facial swelling. ec2 Reports no fevers or chills, no nausea or vomiting. Denies any history of p.o. intake.. 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 - Infectious Disease History:: Denies. - Social history:: Smoking status: Patient denies any tobacco usage or history of. ROS: 10:56 Constitutional: as per hpi ec2 Exam: 10:56 Constitutional: GEN: NAD Head: atraumatic Eyes: EOMI Ears: External ears are normal. ec2 Mouth: Dental caries noted in the left upper teeth, overlying facial swelling, scant. No erythema, no warmth, no fluctuance appreciated. No submandibular swelling or lymphadenopathy present. No trismus CV: regular rate LUNGS: no respiratory distress ABD: non-distended SKIN: no evidence of rashes MSK: no evidence of trauma NEURO: moves all extremities equally Vital Signs: 10:49 BP 178 / 100; Pulse 110; Resp 18 S; Temp 97.8(TE); Pulse Ox 98% on R/A; Weight 90.72 kg aa5 (R); Height 5 ft. 1 in. (R); 11:30 BP 157 / 114; Pulse 97; Resp 17; Pulse Ox 98% ; Pain 7/10; ll1 10:49 Body Mass Index 37.79 (90.72 kg, 154.94 cm) aa5 11:30 Pain Scale: Adult ll1 11:30 Dr. Mesa informed of BP. Still cleared for discharge ll1 Procedures: 11:22 Nerve block: (dental) of periapical block, Medication: Lidocaine 1% without epinephrine ec2 Amount: 8 mls were injected, Effect: the patient's symptoms are improved, markedly, Set up for procedure. Performed by Conrado Mesa MD Patient tolerated well. MDM: 10:47 Patient medically screened. ec2 10:56 Data reviewed: vital signs. ED course: Patient arrives today for dental pain and facial ec2 swelling. Examination remarkable for well-appearing nontoxic vigorous otherwise in no acute distress with slight tachycardia noted and facial findings as above. Will perform dental block, instructed patient antibiotics and have patient follow-up with dentistry. Presentation consistent with dental abscess. Administered Medications: 11:05 Drug: Amoxicillin-Clavulanate PO 875 mg PO once Route: PO; ll1 11:30 Follow up: Response: No adverse reaction ll1 11:05 Drug: Ketorolac IM 15 mg IM once Route: IM; Site: right deltoid; ll1 11:30 Follow up: Response: No adverse reaction; Pain is decreased ll1 11:06 Drug: HYDROcodone-acetaminophen PO 5 mg-325 mg 1 tabs PO once {Note: pain 10/10 RASS 0, ll1 S.O. driving home.} Route: PO; 11:30 Follow up: Response: No adverse reaction; Pain is decreased; RASS: Alert and Calm (0) ll1 11:30 Drug: Lidocaine Infiltration (1 %) 20 ml 20 ml Infiltration once; to bedside {Note: by ll1 Dr. Mesa.} Volume: 20 ml; Route: Infiltration; 11:30 Follow up: Response: No adverse reaction; Pain is decreased ll1 Disposition Summary: 01/23/24 11:21 Discharge Ordered Notes: Location: Home ec2 Condition: Stable ec2 Diagnosis - Dental Abscess ec2 Followup: ec2 - With: Private Physician - When: - Reason: Re-evaluation by your physician Discharge Instructions: - Discharge Summary Sheet ec2 Forms: - Work release form ll1 - Medication Reconciliation Form ec2 - Antibiotic Education ec2 - Prescription Opioid Use ec2 - Patient Portal Instructions ec2 - Leadership Thank You Letter ec2 Prescriptions: - acetaminophen-codeine 300-30 mg Oral tablet - take 1 tablet ORAL route every 4 hours; 15 tablet; Refills: 0, Product ec2 Selection Permitted - Augmentin 875-125 mg Oral tablet - take 1 tablet ORAL route every 12 hours for 7 days; 14 tablet; Refills: 0, ec2 Product Selection Permitted Signatures: Vy Barrera RN RN aa5 Clint Helms RN RN ll1 Conrado Mesa MD MD ec2 Corrections: (The following items were deleted from the chart) 10:51 10:50 Allergies: Aspirin; aa5 aa5
--- NOTE | 2024-01-23 11:21 | ER ---
Nurse's Notes [facility] Name: Christa Montero Age: 43 yrs Sex: Female : 1980 Arrival Date: 01/23/2024 Time: 10:42 Bed 12 Private MD: Diagnosis: Dental Abscess Presentation: 01/22 10:49 Chief complaint: Patient states: "I had some tooth fillings that fell out a while back aa5 and never got fixed and Wednesday I woke up with some swelling to my face". pt c/o left cheek swelling. Coronavirus screen: At this time, the client does not indicate any symptoms associated with coronavirus-19. Ebola Screen: Patient denies travel to an Ebola-affected area in the 21 days before illness onset. Initial Sepsis Screen: Does the patient meet any 2 criteria? No. Patient's initial sepsis screen is negative. Does the patient have a suspected source of infection? No. Patient's initial sepsis screen is negative. Risk Assessment: Do you want to hurt yourself or someone else? Patient reports no desire to harm self or others. Onset of symptoms was January 2024. 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 - Infectious Disease History:: Denies. - Social history:: Smoking status: Patient denies any tobacco usage or history of. Screenin:07 [facility] ED Fall Risk Assessment (Adult) History of falling in the last 3 months, ll1 including since admission No falls in past 3 months (0 pts) Confusion or Disorientation No (0 pts) Intoxicated or Sedated No (0 pts) Impaired Gait No (0 pts) Mobility Assist Device Used No (0 pt) Altered Elimination No (0 pt) Score/Fall Risk Level 0 - 2 = Low Risk Maintained a safe environment, Hourly rounding (assess needs \\T\\ fall precautionary measures) done. Abuse screen: Denies threats or abuse. Nutritional screening: No deficits noted. Tuberculosis screening: No symptoms or risk factors identified. Assessment: 11:06 General: Appears uncomfortable, Behavior is calm, cooperative, appropriate for age. ll1 Pain: Complains of pain in L jaw/tooth pain Pain currently is 10 out of 10 on a pain scale. Quality of pain is described as aching, throbbing. EENT: swelling present L side of jaw. Reports pain in left cheek and left jaw. 11:30 Reassessment: No changes from previously documented assessment. Patient and/or family ll1 updated on plan of care and expected duration. Pain level reassessed. Patient is alert, oriented x 3, equal unlabored respirations, skin warm/dry/pink. Vital Signs: 10:49 BP 178 / 100; Pulse 110; Resp 18 S; Temp 97.8(TE); Pulse Ox 98% on R/A; Weight 90.72 kg aa5 (R); Height 5 ft. 1 in. (R); 11:30 BP 157 / 114; Pulse 97; Resp 17; Pulse Ox 98% ; Pain 7/10; ll1 10:49 Body Mass Index 37.79 (90.72 kg, 154.94 cm) aa5 11:30 Pain Scale: Adult ll1 11:30 Dr. Mesa informed of BP. Still cleared for discharge ll1 ED Course: 10:44 Patient arrived in ED. im 10:46 Conrado Mesa MD is Attending Physician. ec2 10:49 Arm band placed on. aa5 10:50 Triage completed. aa5 11:07 Patient has correct armband on for positive identification. Bed in low position. ll1 Provided Education on: ER procedures and process. Cardiac monitoring not applicable on this patient. 11:07 No provider procedures requiring assistance completed. ll1 11:08 Clint Helms, MARKO is Primary Nurse. ll1 11:32 Patient did not have IV access during this emergency room visit. ll1 Administered Medications: 11:05 Drug: Amoxicillin-Clavulanate PO 875 mg PO once Route: PO; ll1 11:30 Follow up: Response: No adverse reaction 1 11:05 Drug: Ketorolac IM 15 mg IM once Route: IM; Site: right deltoid; ll1 11:30 Follow up: Response: No adverse reaction; Pain is decreased 1 11:06 Drug: HYDROcodone-acetaminophen PO 5 mg-325 mg 1 tabs PO once {Note: pain 03/30 RASS 0, [address].} Route: PO; 11:30 Follow up: Response: No adverse reaction; Pain is decreased; RASS: Alert and Calm (0) [facility] 11:30 Drug: Lidocaine Infiltration (1 %) 20 ml 20 ml Infiltration once; to bedside {Note: by [address] Dr. Mesa.} Volume: 20 ml; Route: Infiltration; 11:30 Follow up: Response: No adverse reaction; Pain is decreased [facility] Medication: 11:07 VIS not applicable for this client. [facility] Outcome: 11:21 Discharge ordered by . ec2 11:31 Discharged to home ambulatory, [facility] 11:31 Condition: stable 11:31 Discharge instructions given to patient, Instructed on discharge instructions, follow up and referral plans. no drinking with medication, no driving heavy equipment, medication usage, Demonstrated understanding of instructions, follow-up care, medications, Prescriptions given X 2, 11:32 Patient left the ED. [facility] Signatures: Vy Barrera RN RN aa5 Clint Helms RN RN 1 Patrizia Torre Edwin, MD MD ec2 Corrections: (The following items were deleted from the chart) 10:51 10:50 Allergies: Aspirin; humberto paul
[2024-01-23 11:57] VITALS: TEMP 97.8; O2SAT 98
[2024-01-23 12:01] VITALS: BP 157/114
== END 2024-01-23 11:32 | disposition home or self-care (01) ==
LOC: ER 10:42
DX: K04.7 Periapical abscess without sinus (principal)
CPT/HCPCS: 96372; 99284; J2001

== ENCOUNTER 2024-04-02 08:07 | Emergency (ER) | payer BC ==
--- OUTSIDE RECORDS SUMMARY | 2024-04-02 08:11 | XMS REPORT | Continuity of Care Document ---
Author Name Unknown Address [address] [facility] [address]. [address] [place] [address] [facility] thconnect Address [address] [facility]. [address] [place] [address] Care Team Providers Care Civil Technician Name Role Phone Alexandria Jenkins Attending Clinician [...] s DA Active U - 00:00: 00 [facility] No Known Allergie s DA Active U - 00:00: 00 [facility] No Known Allergie s DA Active U - 00:00: 00 [facility] Procedures Procedure Date / Time Performed Performing Clinicia n Source [id number] 2019-07-24 00:00:00 [facility] [id number] 2019-07-24 00:00:00 [facility] Encounters Start Date/Time End Date/Time Encounter Type Admission Type Attending Clinicians Care Facility Care Department Encounter ID Source 2023-02-08 16:07:00 Outpatient Alexandria Jenkins [facility] [id number] [facility] 2019-08-02 07:15:00 Inpatient Garry Hyman [facility] LD [id number] [facility] 2019-07-24 13:30:00 Inpatient Garry Hyman [facility] LD [id number] [facility] 2019-07-14 13:07:00 Inpatient Kristin Morannna [facility] EVA [id number] [facility] 2023-09-07 08:28:00 2023-09-08 10:38:00 Inpatient Martha Garcias [facility] MEDI.01 [id number] [facility] 2023-04-12 10:44:00 2023-04-12 10:44:00 Outpatient Melodie Capps [facility] [id number] [facility] 2019-07-04 11:00:00 2019-07-04 11:00:00 Outpatient Garry Moran [facility] RADI [id number] [facility] Results Test Description Test Time Test Comments Results Result Co mments Source CBC W/AUTO [id number] 05:33:00* Test Item Value Reference Range Interpretation [...] = BA#) 0.0 K/mm3 AG HEPATITIS B [id number] 17:34:00* Test Item Value Reference Range Interpretation Comme nts AG HEPATITIS B SURFACE (test code = HBSAG) NONREACTIVE NONREACTIVE AB HEPATITIS C [id number] 17:34:00* Test Item Value Reference Range Interpretation Comme nts AB HEPATITIS C (test code = HCVAB) NONREACTIVE NONREACTIVE SIGNAL TO CUTOFF (test code = CUTOFF) 0.20 <0.80 N AB HIV 1 17:34:00* Test Item Value Reference Range Interpretation Comme nts AB HIV 1 2 (test code = AXA01TS) NONREACTIVE NONREACTIVE Done by Siemens [employer]ake[employer] 4th Gen HIV Ag/Ab Combo Screen BASIC METABOLIC [id number] 17:32:00* Test Item Value Reference Range Interpretation [...] thepatient's age is <18 years. HCG SERUM [id number] 17:12:00* Test Item Value Reference Range Interpretation Comme nts HCG SERUM QUAL (test code = HCGQL) NEGATIVE COVID 19 Asymptomatic IH [id number] 16:25:00* Test Item Value Reference Range Interpretation [...] testsfor detection and/or diagnosis of COVID-19 under Dvyetqf330(b)(1) of the Act, 21 U.S.C. 360bbb-3(b)(1), unless theauthorization is terminated or revoked sooner. URINALYSIS [id number] 16:14:00* Test Item Value Reference Range Interpretation [...] SEEN A URINE SAMPLE: CLEAN CATCHCBC W/AUTO [id number] 16:05:00* Test Item Value Reference Range Interpretation [...] = BA#) 0.1 K/mm3 - DUP AB/PEL/SC [id number] 13:45:00 [facility] : 1980 Sex: F Name: IDANIA DALEY [facility] : 1980 Age/S: 42 / F [address] [facility] Unit #: [id number] Loc: [place] [address] Phys: Melodie Rose MD Acct: [id number] Dis Date: Status: REG CLI PHONE #: [phone] Exam Date: 04/12/20231138 FAX #: Reason: EXCESSIVE MENSTRUATIONS EXAMS: CPT: [id number] AB/PEL/SC COMP 75078 CLINICAL INFORMATION: Menorrhagia. Irregular cycles. Dictation location: [...] PAGE 1 Signed Report Name: IDANIA DALEY [facility] : 1980 Age/S: 42 / F [address] [facility] Unit #: [id number] Loc: [place] [address] Phys: Melodie Rose MD Acct: [id number] Dis Date: Status: REG CLI PHONE #: [phone] Exam Date: 04/12/20231138 FAX #: Reason: EXCESSIVE MENSTRUATIONS EXAMS: CPT: [id number] DUP AB/PEL/SC COMP 05178 (Continued) Orig Print D/T: S: 04/12/2023 (1348) Probe: PAGE 2 Signed Report- US PELVIC [id number] 13:45:00[facility] : 1980 Sex: F Name: IDANIA DALEY [facility] : 1980 Age/S: 42 / F [address] [address] Unit #: [id number] Loc: [place] [address] Phys: Melodie Rose MD Acct: [id number] Dis Date: Status: REG CLI PHONE #: [phone] Exam Date: 04/12/2023 1139 FAX #: Reason: MENORRHAGIA WITH REGULAR CYCLE EXAMS: CPT: [id number] US PELVIC COMPLETE [address] CLINICAL INFORMATION: Menorrhagia. Irregular cycles. Dictation location: [...] CC: Urbano Rose MD Technologist: Kim Medina Trnneb Date/Time: 04/12/2023 (6600) t.SDR.AGV PAGE 1 Signed Report Name: IDANIA DALEY [facility] : 1980 Age/S: 42 / F [address] [facility] Unit #: [id number] Loc: [place] [address] Phys: Melodie Rose MD Acct: [id number] Dis Date: Status: REG CLI PHONE #: [phone] Exam Date: 04/12/2023 1139 FAX #: Reason: MENORRHAGIA WITH REGULAR CYCLE EXAMS: CPT: [id number] US PELVIC COMPLETE 29557 (Continued) Orig Print D/T: S: 04/12/2023 (9462) Probe: PAGE 2 Signed Report- US TRANSVAGINAL NON [id number] 13:45:00 [facility] : 1980 Sex: F Name: IDANIA DALEY [facility] : 1980 Age/S: 42 / F [address] [facility] Unit #: [id number] Loc: [place] [address] Phys: Melodie Rose MD Acct: [id number] Dis Date: Status: REG CLI PHONE #: [phone] Exam Date: 04/12/2023 1138 FAX #: Reason: MENORRHAGIA WITH REGULAR CYCLE EXAMS: CPT: [id number] [place] [address] CLINICAL INFORMATION: Menorrhagia. Irregular cycles. Dictation location: [...] Rose MDTechnologist: Kim Medina Trnscb Date/Time: 04/12/2023 (8737) BensonAGV PAGE 1 Signed Report Name: IDANIA DALEY [facility] : 1980 Age/S: 42 / F [address] [address] Unit #: [id number] Loc: [place] [address] Phys: Melodie Rose MD Acct: [id number] Dis Date: Status: REG CLI PHONE #: [phone] Exam Date: 04/12/2023 1137 FAX #: Reason: MENORRHAGIA WITH REGULAR CYCLE EXAMS: CPT: [id number] [place] [address] (Continued) Orig Print D/T: S: 04/12/2023 (9291) Probe: [id number] PAGE 2 Signed Report FALLOPIAN TUBE,[id number] 15:04:00 RUN DATE: 07/26/19 [facility] PAGE 1 RUN TIME: 1922 Specimen Inquiry RUN USER: INTERFACE ------- -----PATIENT: IDANIA DALEY LOC: AVINASH U #: [id number] AGE/SX: 38/F ROOM: [facility] RE07/24/19REG DR: Garry Moran MD : [birth year] BED: A DIS: STATUS: ADM IN TLOC: SPEC #: [id number] RECD: 07/24/19 STATUS: KAILYN CARDONA #: [id number] THOMAS: 07/24/19- SUBM DR: Garry Moran MD ENTERED: 07/25/19 SP TYPE: FALLS OT DR: Zina Yadav MD ORDERED: LEVEL II SURGIC/2 CODES: [id number] - FALLOPIAN TUBE COPIES TO: Zina Yadav MD [address] [facility] [address] [place] [address] [email or web address] Garry Moran MD [address] [facility] [address] [place] [address] PROCEDURES: LEVEL II SURGIC (Incomplete) TISSUES: FALLOPIAN TUBE, NOS - BILATERAL FALLOPIAN TUBES CLINICAL HISTORY 38 year old, @ 37.1 weeks, CHTN (kr) FINAL DIAGNOSIS Specimen #1 right fallopian tube, segmental resection: - histologic - complete lumen demonstrated Specimen #2 left fallopian tube, perry resection: - histologic - complete lumen demonstrated CPT code(s): 98471 x2 cds/wpd 07/26/19 CONTINUED ON NEXT PAGE RUN DATE: 07/26/19 [facility] PAGE 2 RUN TIME: 1922 Specimen Inquiry RUN USER: INTERFACE SPEC #: [id number] PATIENT: IDANIA DALEY #[id number] (Continued) GROSS DESCRIPTION ANATOMIC SOURCE OF TISSUE (per Requisition): Fallopian right and left tube segments (two containers) Each specimen is labeled with the patient's name and medical record number. Specimen #1 is designated "right fallopiantube" and consists of a 1.0 cm in length and 0.4 cm in diameter pink-purple and hyperemic segment of fallopian tube. The lumen is pinpoint. Cloud Physicist sections are submitted labeled A1. Specimen #2 [...] 07/26/19 1504 END OF REPORT CBC W/AUTO [id number] 05:36:00* Test Item Value Reference Range Interpretation [...] = PLTMR) NORMAL NORMAL AG HEPATITIS B [id number] 16:21:00* Test Item Value Reference Range Interpretation Comme nts AG HEPATITIS B SURFACE (test code = HBSAG) NONREACTIVE NONREACTIVE IS CONSENT FORM SIGNED FOR HIV TESTING? YAB HEPATITIS C [id number] 16:21:00* Test Item Value Reference Range Interpretation Comme nts AB HEPATITIS C (test code = HCVAB) NONREACTIVE NONREACTIVE SIGNAL TO CUTOFF (test code = CUTOFF) 0.15 <0.80 N IS CONSENT FORM SIGNED FOR HIV TESTING? YAB [id number] 16:21:00* Test Item Value Reference Range Interpretation Comme nts AB TREPONEMA (test code = TREPAB) NONREACTIVE NONREACTIVE IS CONSENT FORM SIGNED FOR HIV TESTING? YAB HIV 1 16:21:00* Test Item Value Reference Range Interpretation Comme nts AB HIV 1 2 (test code = EAB71PB) NONREACTIVE NONREACTIVE Done by Siem[employer] 4th Gen HIV Ag/Ab Combo Screen IS CONSENT FORM SIGNED FOR HIV TESTING? YAG HEPATITIS B [id number] 15:52:00* Test Item Value Reference Range Interpretation Comme nts AG HEPATITIS B SURFACE (test code = HBSAG) NONREACTIVE NONREACTIVE IS CONSENT FORM SIGNED FOR HIV TESTING? YAB HEPATITIS C [id number] 15:52:00* Test Item Value Reference Range Interpretation Comme nts AB HEPATITIS C (test code = HCVAB) NONREACTIVE SIGNAL TO CUTOFF (test code = CUTOFF) <0.80 IS CONSENT FORM SIGNED FOR HIV TESTING? KINGB [id number] 15:52:00* Test Item Value Reference Range Interpretation Comme nts AB TREPONEMA (test code = TREPAB) NONREACTIVE NONREACTIVE IS CONSENT FORM SIGNED FOR HIV TESTING? SANTY HIV 1 15:52:00* Test Item Value Reference Range Interpretation Comme nts AB HIV 1 2 (test code = PSZ52LS) NONREACTIVE IS CONSENT FORM SIGNED FOR HIV TESTING? YUR PROTEIN/CREATININE [id number] 15:35:00* Test Item Value Reference Range Interpretation Comme nts UR PROTEIN RANDOM (test code = PROTU) 33.0 mg/dL UR CREATININE RANDOM (test code = CREATU) 78.8 mg/dL PROTEIN/CREATININE RATIO (te st code = P/CRATIO) 410.0 mg/gcrea <200 H URIC [id number] 15:02:00* Test Item Value Reference Range Interpretation Comme nts URIC ACID (test code = URIC) 4.7 mg/dL 2.6-6.0 N [id number] 15:02:00* Test Item Value Reference Range Interpretation Comme nts SGOT/AST (test code = AST) 33 units/L 15-37 SGPT/[id number] 15:02:00* Test Item Value Reference Range Interpretation Comme nts SGPT/ALT (test code = ALT) 24 units/L 12-78 N LACTIC DEHYDROGENASE(LDH)2019-07-24 15:02:00* Test Item Value Reference Range Interpretation Comme nts LACTIC DEHYDROGENASE(LDH) (t est code = LDH) 198 units/L 81-234 N URINALYSIS W/O [id number] 14:30:00* Test Item Value Reference Range Interpretation Comme nts UA GLUCOSE DIPSTICK (test co de = DGLUU) NEGATIVE NEGATIVE UA KETONE DIPSTICK (test cod e = KETU) 1+ NEGATIVE UA PROTEIN DIPSTICK (test co de = PROU) NEGATIVE NEGATIVE IS NURSE PERFORMING TEST? NCBC W/AUTO [id number] 14:28:00* Test Item Value Reference Range Interpretation [...] = PLTMR) NORMAL NORMAL AG HEPATITIS B [id number] 15:57:00* Test Item Value Reference Range Interpretation Comme nts AG HEPATITIS B SURFACE (test code = HBSAG) NONREACTIVE NONREACTIVE AB HEPATITIS C [id number] 15:57:00* Test Item Value Reference Range Interpretation Comme nts AB HEPATITIS C (test code = HCVAB) NONREACTIVE NONREACTIVE SIGNAL TO CUTOFF (test code = CUTOFF) 0.15 <0.80 N AB [id number] 15:57:00* Test Item Value Reference Range Interpretation Comme nts AB TREPONEMA (test code = TREPAB) NONREACTIVE NONREACTIVE AG HEPATITIS B [id number] 15:22:00* Test Item Value Reference Range Interpretation Comme nts AG HEPATITIS B SURFACE (test code = HBSAG) NONREACTIVE NONREACTIVE AB HEPATITIS C [id number] 15:22:00* Test Item Value Reference Range Interpretation Comme nts AB HEPATITIS C (test code = HCVAB) NONREACTIVE SIGNAL TO CUTOFF (test code = CUTOFF) <0.80 AB [id number] 15:22:00* Test Item Value Reference Range Interpretation Comme nts AB TREPONEMA (test code = TREPAB) NONREACTIVE NONREACTIVE BLOOD UREA [id number] 14:50:00* Test Item Value Reference Range Interpretation Comme nts BLOOD UREA NITROGEN (test code = BUN) 9 mg/dL 7-18 N [id number] 14:50:00* Test Item Value Reference Range Interpretation Comme nts CREATININE (test code = CREAT) 0.6 mg/dL 0.5-1.0 N URIC [id number] 14:50:00* Test Item Value Reference Range Interpretation Comme nts URIC ACID (test code = URIC) 4.7 mg/dL 2.6-6.0 N [id number] 14:50:00* Test Item Value Reference Range Interpretation Comme nts SGOT/AST (test code = AST) 21 units/L 15-37 N [id number] 14:50:00* Test Item Value Reference Range Interpretation Comme nts SGPT/ALT (test code = ALT) 21 units/L 12-78 N LACTIC DEHYDROGENASE(LDH)2019-07-14 14:50:00* Test Item Value Reference Range Interpretation Comme nts LACTIC DEHYDROGENASE(LDH) (t est code = LDH) 176 units/L 81-234 N URINALYSIS [id number] 14:45:00* Test Item Value Reference Range Interpretation [...] NONE SEEN URINE SAMPLE: CLEAN CATCHCBC W/AUTO [id number] 14:37:00* Test Item Value Reference Range Interpretation [...] code = PLTMR) NORMAL NORMAL - US [facility] [id number] 12:29:00Patient Name: IDANIA DALEY Unit No: [id number] EXAMS: [place]: [id number] [address] [facility] [address] OBSTETRICAL ULTRASOUND REPORT Pat. Name: IDANIA DALEY Pat. No: [id number] Study Date: 07/04/2019 11:28am , Age: 03 1980, 38 Pregnancies: 4, Para 3 LMP: 11/06/2018 GA by LMP: 34w2d GA by 1st: 34w2d GA by US: 35w2d GA Selected: 34w2d (LMP) MARIANA: 08/13/2019 Ref erring MD: Garry Moran Cracker Off: Lacey Levin RDMS, RVT CPT4: USPREGFU Admitting MD: Garry Moran Hist/Ind: SCAN 3 F/U GROWTH HTN MEASUREMENTS AGE GROWTH EVALUATION Measurement GA Range Srce %for GA Ratios ----- ---- ------- BPD 8.9 cm 36w4d (92j3o-03n9i) Hadl BPD 83% FL/BPD 0.73 (0.71 - 0.87) HC 32.4 cm 36w1d (55m0l-29o8b) Hadl HC 82% FL/AC 0.19 (0.20 - 0.24* APD 11.2 cm APD HC/AC 0.94 (0.94 - 1.13* TAD 10.8 cm TAD CI 0.81 (0.70 - 0.86) AC 34.6 cm 38w5d (52k0k-09s7l) Hadl AC >95 FL 6.5 cm 33w2d (99q6k-79x9h) Hadl FL 34% HL 6.0 cm 34w5d (12g1f-64c6t) Jona HL 58% GA for sonogram 35w2d (07u4j-45b1u) Weight Estimate: based on (BPD,HC,AC,FL) Hadlock Weight: 3045 gm (3349-8557) Hadlo : 6lbs, 11oz Normal: 2283 gm (0477-5783) Brenn Wt% >90 for 34.3 wks Cervical [...] size is large for gestational age. [facility] NAME: IDANIA DALEY Radiology Department PHYS: Garry Garcia MD [address] : 1980 AGE: 38 SEX: F [place], [place] [address] LOC: AyannaRAD PHONE #: [phone] EXAM DATE: 07/04/2019 STATUS: REG CLI FAX #: [phone] RAD NO: Page 1 Signed Report (CONTINUED) Patient Name: IDANIA DALEY Unit No: [id number] EXAMS: CPT CODE: [id number] [place] [address] (Continued) growth: Suspect LGA fetus (>90%) motion [...] Orig Print D/T: S: 07/04/2019 (1229) [facility] NAME: IDANIA DALEY Radiology Department PHYS: Garry Garcia MD [address] : 1980 AGE: 38 SEX: F [place] [address] LOC: Pearl.RAD PHONE #: [phone] EXAM DATE: 07/04/2019 STATUS: REG CLI FAX #: [phone] RAD NO: Page 2 Signed Report Patient Name: IDANIA DALEY Unit No: [id number] EXAMS: CPT CODE: [id number] [place] [address] (Continued) [facility] NAME: IDANIA DALEY Radiology [facility] [address] : 1980 AGE: 38 SEX: F [place] [address] LOC: Pearl.RAD PHONE #: [phone] EXAM DATE: 07/04/2019 STATUS: REG CLI FAX #: [phone] RAD NO: Page 3 Signed Report- US PREG AFTER [id number] 10:50:00Patient Name: IDANIA DALEY Unit No: [id number] EXAMS: CPT CODE: [id number] US PREG AFTER TRI [address] [facility] [address] [place], [place] [address] OBSTETRICAL ULTRASOUND REPORT Pat. Name: IDANIA DALEY Pat. No: [id number] Study Date: 03/27/2019 9:50am , Age: 03 1980, 38 Pregnancies: 4, Para 3 LMP: 11/06/2018 GA by LMP: 20w1d GA by 1st: 20w1d GA by US: 21w2d GA Selected: 20w1d (LMP) MARIANA: 08/13/2019 Referring MD: Garry Moran Cracker Off: Amira Jiang RDMS CPT4: [id number] Admitting MD: Garry Moran Hist/Ind: ANATOMY SCAN 2 MEASUREMENTS AGE GROWTH EVALUATION Measurement GA Range Srce %for GA Ratios ----- ---- ------- BPD 4.9 cm 20w6d (68r3w-40k7n) Hadl BPD 72% FL/BPD 0.65 HC 18.2 cm 20w3d (18w6d- 22w1d) Hadl HC 61% FL/AC 0.19 APD 5.4 cm APD HC/AC1.08 (1.06 - 1.24) TAD 5.3 cm TAD CI 0.80 (0.70 - 0.86) AC 16.8 cm 21w4d (41q5v-67g9d) Hadl AC 83% FL 3.2 cm 19w4d (62v6n-07a2y) Hadl FL 39% HL 3.0 cm 19w6d (23h1b-76f6h) Jona HL 46% GA for sonogram 21w2d (26n4l-22g3e) Weight Estimate: based on (BPD,AC) Hadlock Weight: [...] vessel umbilical cord noted Placental location: [facility] NAME: YVONNE DALEYI Radiology Department PHYS: Garry Garcia MD [address] : 1980 AGE: 38 SEX: F [place], [place] [address] LOC: AyannaRAD PHONE #: [phone] EXAM DATE: 03/27/2019 STATUS: REG CLI FAX #: [phone] RAD NO: Page 1 Signed Report (CONTINUED) Patient Name: IDANIA DALEY Unit No: [id number] EXAMS: CPT CODE: [id number] US PREG AFTER 1ST TRI [address] (Continued) Anterior Placental maturity : Grade 1 [...] t.JESSIKAR.AJ13 Orig Print D/T: S: 03/27/2019 (1050) [facility] NAME: IDANIA DALEY Radiology Department PHYS: [facility] Garry Aguiar MD [address] : 1980 AGE: 38 SEX: F [place] [address] LOC: AyannaRAD PHONE #: [phone] EXAM DATE: 03/27/2019 STATUS: REG CLI FAX #: [phone] RAD NO: Page 2 Signed Report Patient Name: IDANIA DALEY Unit No: [id number] EXAMS: CPT CODE: [id number] US PREG AFTER 1ST TRI [address] (Continued) [facility]: Garry Aguiar MD [address] : 1980 AGE: 38 SEX: F [place] [address] LOC: AyannaRAD PHONE #: [phone] EXAM DATE: 03/27/2019 STATUS: REG CLI FAX #: [phone] RAD NO: Page 3 Signed Report- US PREG EVAL 1ST [id number] 15:04:00Patient Name: IDANIA DALEY Unit No: [id number] EXAMS: CPT CODE: [id number] US PREG EVAL 1ST TRIMTR [address] [facility] [address] [place], [place] [address] OBSTETRICAL ULTRASOUND REPORT Pat. Name: IDANIA DALEY Pat. No: [id number] Study Date: 02/06/2019 1:53pm , Age: 03 1980, 38 Pregnancies: 4, Para 3 LMP: 11/06/2018 GA by LMP: 13w1d GA by US: 13w2d GA Selected: 13w1d (LMP) MARIANA: 08/13/2019 Referring MD: GARRY MORAN Cracker Off: Lacey Levin RDMS, RVT CPT4: [id number] Admitting MD: GARRY MORAN/Ind: SCAN 1 VIABILITY NM ASUREMENTS AGE GROWTH EVALUATION Measurement GA Range Srce %for GA Ratios ----- ---- ------- CRL 7.4 cm 13w4d (97r7d-29z9s) Hadl CRL 67% FL 1.1 cm 13w1d (05k5y-81x3g) Hadl FL 50% GA for sonogram 13w2d (46f6x-06f1q) based on (CRL,FL) Avg Cervical Length: 3.7 [...] Gore M.D. Electronic Signature 02/06/2019 03:04pm [facility] NAME: IDANIA DALEY Radiology Department PHYS: - Garry Moran MD [address] : 1980 AGE: 38 SEX: F [place], [place] [address] LOC: AyannaRAD PHONE #: [phone] EXAM DATE: 02/06/2019 STATUS: PRE CLI FAX #: [phone] RAD NO: Page 1 Signed Report (CONTINUED) Patient Name: IDANIA DALEY Unit No: [id number] EXAMS: CPT CODE: [id number] US PREG EVAL 1ST [id number] (Continued) at 1504 Reported and signed by: Billie Gore MD CC: Garry Moran MD Technologist: Lacey Levin RDMS, RVT Probe: Trnscrbd D/ (1504) t.JESSIKAR.NMG Orig Print D/T: S: 02/06/2019 (1503) [facility] NAME: IDANIA DALEY Radiology Department PHYS: [facility] [address] : 1980 AGE: 38 SEX: F [place] [address] LOC: AyannaRAD PHONE #: [phone] EXAM DATE: 02/06/2019 STATUS: PRE CLI FAX #: [phone] RAD NO: Page 2 Signed Report Patient Name:IDANIA DALEY Unit No: [id number] EXAMS: CPT CODE: [id number] US PREG EVAL 1ST TRIMTR [address] (Continued) [facility] NAME: IDANIA DALEY Radiology Department PHYS: Rajwinder Moran MD [address] : 1980 AGE: 38 SEX: F [place] [address] LOC: [facility]annaRAD PHONE #: [phone] EXAM DATE: 02/06/2019 STATUS: PRE CLI FAX #: [phone] RAD NO: Page 3 Signed Report- US PREG UT TRANSVAGINAL 2019-02-06 15:04:00Patient Name: IDANIA DALEY Unit No: [id number] EXAMS: CPT CODE: [id number] US PREG UT TRANSVAGINAL [address] [facility] [address] [place], [place] [address] OBSTETRICAL ULTRASOUND REPORT -------- Pat. Name: IDANIA DALEY Pat. No: [id number] Study Date: 02/06/2019 1:53pm , Age: 03 1980, 38 Pregnancies: 4, Para 3 LMP: 11/06/2018 GA by LMP: 13w1d GA by US: 13w2d GA Selected: 13w1d (LMP) MARIANA: 08/13/2019 Referring MD: Garry Moran Cracker Off: Lacey Levin RDMS, RVT CPT4: USPRUTTRVG Hist/Ind: SCAN 1 VIABILITY MEASUREMENTS AGE GROWTH EVALUATION Measurement GA Range Srce %for GA Ratios ----- ---- ------- CRL 7.4 cm 13w4d (99q2y-11u6e) Hadl CRL 67% FL 1.1 cm 13w1d (34i6a-11x9y) Hadl FL 50% GA for sonogram 13w2d (24c2t-40r9p) based on (CRL,FL) Avg Cervical Length: 3.7 [...] Billie Gore M.D. Electronic Signature 02/06/2019 03:04pm [facility] NAME: IDANIA DALEY diology Department PHYS: ANAYA.01 - Garry Moran MD [address] : 1980 AGE: 38 SEX: F [place], [place] [address] LOC: MESSI PHONE #: [phone] EXAM DATE: 02/06/2019 STATUS: PRE CLI FAX #: [phone] RAD NO: Page 1 Signed Report (CONTINUED) Patient Name: IDANIA DALEY Unit No: [id number] EXAMS: CPT CODE: [id number] [facility] TRANSVAGINAL [address] (Continued) at 1505 Reported and signed by: Billie Gore MD CC:Garry Moran MD Technologist: Lacey Levin RDMS, RVT Probe: [id number] Trnscrbd D/ (1503) Kunal Orig Print D/T: S: 02/09/2019 (0249) [facility] NAME: IDANIA DALEY Radiology Department PHYS: [facility] Garry Moran MD [address] : 1980 AGE: 38 SEX:F [place] [address] LOC: AyannaRAD PHONE #: [phone] EXAM DATE: 02/06/2019STATUS: PRE CLI FAX #: [phone] RAD NO: Page 2 Signed Report Patient Name: IDANIA DALEY Unit No:[id number] EXAMS: CPT CODE: [id number] PREG [place] TRANSVAGINAL 85340 (Continued) [facility] NAME: IDANIA DALEY Radiology Department PHYS: NERIS Ojeda Garry Moran MD [address] : 1980 AGE: 38 SEX: F [place] [address] LOC: AyannaRAD PHONE #: [phone] EXAM DATE: 02/06/2019 STATUS: PRE CLI FAX #: [phone] RAD NO: Page 3 Signed Report Notes Date/Time Note Provider Source 2023-09-08 08:51:00 [id number] [place] [address] PATIENT NAME: IDANIA DALEY ADMIT DATE: 09/07/23 ACCOUNT NO: [id number] [facility] AGE: 43 SEX: F ADMITTING PHYSICIAN: Martha [...] lysis of adhesions. SURGEON: Martha Chong MD RESOURCE MANAGER: Haroon Massey ANESTHESIA: General. ESTIMATED BLOOD LOSS: [...] was placed in dorsal lithotomy position in [facility]. She was prepped and draped in the [...] the tube. Tube was removed through the assistant coach port. Same was performed on the right [...] Throughout the case, Haroon Massey acted as first line supervisor. He provided protection and retraction. He performed [...] Date Transcribed: 09/08/2023 09:37:34 NNT/MORGAN Receipt ID: [id number] Authenticated and Edited by Martha Chong MD On 09/19/23 8:23:19 PM at 0824 PATIENT NAME: IDANIA DALEY [facility] 2023-09-08 08:31:00 [facility] Gynecology Post Prog Note REPORT#:[id number] REPORT STATUS: Signed REPORT INITIALIZATION DATE:09/08/23 TIME: 830 PATIENT: IDANIA DALEY UNIT #: [id number] ROOM/BED: [facility]-A : [birth year] AGE: 42 SEX: F ATTEND: [...] (Auto) (14.5 - 29.7 %) 14.4 L Bent % (Auto) (3.6 - 10.2 %) 6.9 Eos % (Auto) (0.0 - 3.0 %) 0.0 Baso % (Auto) (0.1 - 0.9 %) 0.3 Neut # (Auto) (K/mm3) 10.5 Lymph # (Auto) (K/mm3) 1.9 Bent # (Auto) (K/mm3) 0.9 Eos # (Auto) (K/mm3) 0 Baso # (Auto) (K/mm3) 0.0 Diagnosis, Assessment Plan Free Text A P: Doing well. HD stable. Good U/O and GI fxn. Plan: Cont reg diet PO pain meds D/C today Precautions given at 0833 RPT #:[id number] END OF REPORT [facility] 2023-09-03 16:14:00 [id number] [place] [address] PATIENT NAME: IDANIA DALEY ADMIT DATE: ACCOUNT NO: [id number] ROOM NO: AGE: 42 SEX: F ADMITTING PHYSICIAN: ATTENDING PHYSICIAN: Martha Chong MD Order: [id number] Test Reason : PRE- OP (09/07/2023) Test [...] ECGs available Confirmed by SHELLEY COOLEY MD ([id number]) on 09/06/2023 6:07:33 PM Referred By: DOES_NOT KNOW Confirmed by:SHELLEY COOLEY MD at 1801 PATIENT NAME: IDANIA DALEY [facility] 2019-08-13 12:03:00 [id number] [place] [address] PATIENT NAME: IDANIA DALEY ADMIT DATE: 07/24/19 ACCOUNT NO: [id number] ROOM NO: [facility] AGE: 38 SEX: F ADMITTING PHYSICIAN: Garry [...] section; and bilateral tubal ligation. DISCHARGE MEDICATIONS: Aubrey 5, Motrin, vitamins, and labetalol 100 mg [...] 7 days. This was cleared with the pediatric neurologist. Dictated By: Garry Moran MD WT: DS:CHANDRIKA/ANAYA.GET Conf#: [id number]/DID#: [id number] PATIENT NAME: IDANIA DALEY Authenticated by Garry Moran MD On 08/13/2019 12:47:03 PM at 1247 PATIENT NAME: IDANIA DALEY [facility] 2019-07-27 08:36:00 [facility] ([facility]) OB Postpart Progr Note REPORT#:[id number] REPORT STATUS: Signed DATE:07/27/19 TIME: 08 PATIENT: IDANIA DALEY UNIT #: [id number] ROOM/BED: 2036- : 81 AGE: 38 SEX: [...] 6 weeks Prec given at 0838 RPT #:[id number] END OF REPORT [facility] 2019-07-26 09:10:00 [facility] ([facility]) OB Postpart Progr Note REPORT#:[id number] REPORT STATUS: Signed DATE:07/26/19 TIME: 09 PATIENT: IDANIA DALEY UNIT #: [id number] ROOM/BED: 2036-A : 81 AGE: 38 SEX: [...] (14.3 - 34.3 %) 8.2 L 18.1 Bent % (Auto) (5.1 - 10.4 %) 5.6 7.1 Eos % (Auto) (0.1 - 3.0 %) 0.1 1.0 Baso % (Auto) (0.1 - 1.0 %) 0.2 0.4 Neut # (Auto) (K/mm3) 13.2 5.9 Lymph # (Auto) (K/mm3) 1.3 1.5 Bent # (Auto) (K/mm3) 0.9 0.6 Eos # [...] days. Will confirm no bilirubin elevations with pediatric neurologist. at 0914 RPT #:[id number] END OF REPORT [facility] 2019-07-25 08:52:00 [facility] ([facility]) OB Postpart Progr Note REPORT#:[id number] REPORT STATUS: Signed DATE:07/25/19 TIME: 851 PATIENT: IDANIA DALEY UNIT #: [id number] ROOM/BED: [address] : 81 AGE: 38 SEX: F [...] (14.3 - 34.3 %) 8.2 L 18.1 Bent % (Auto) (5.1 - 10.4 %) 5.6 7.1 Eos % (Auto) (0.1 - 3.0 %) 0.1 1.0 Baso % (Auto) (0.1 - 1.0 %) 0.2 0.4 Neut # (Auto) (K/mm3) 13.2 5.9 Lymph # (Auto) (K/mm3) 1.3 1.5 Bent # (Auto) (K/mm3) 0.9 0.6 Eos # [...] discussed with: patient, spouse/partner at 0854 RPT #:[id number] END OF REPORT [facility] 2019-07-24 18:08:00 [id number] [facility] [place] [address] PATIENT NAME: IDANIA DALEY ADMIT DATE: 07/24/19 ACCOUNT NO: [id number] ROOM NO: [facility] AGE: 38 SEX: F ADMITTING PHYSICIAN: [...] bilateral tubal sterilization. SURGEON: Zina Yadav MD RESOURCE MANAGER: Radha Hernandez SA ANESTHESIA: Combined epidural spinal [...] 0 Vicryl in a running-locking fashion. Multiple qkvheh-qn-eyyyi sutures were required for hemostasis. The area [...] midpoint of the uterine incision and a xttdne-rt-zdzoh suture was placed with excellent hemostasis. Both [...] By: Zina Yadav MD WT: OP:FKWAKU/YEIMI/GET Conf#: [id number]/DID#: [id number] Authenticated and Edited by Zina Yadav MD On 07/25/19 8:55:41 AM at 0858 PATIENT NAME: IDANIA DALEY [facility] 2019-07-24 17:56:00 [facility] ([facility]) OB Delivery Note REPORT#:[id number] REPORT STATUS: Signed DATE:07/24/19 TIME: 1755 PATIENT: IDANIA DALEY UNIT #: [id number] ROOM/BED: [address] : 81 AGE: 38 SEX: F ATTEND: Garry Moran MD ADM AUTHOR: Zina Yadav MD * ALL edits or amendments must be made on the electronic/computer document * OB Delivery Pre-delivery Meds prior to delivery: labetalol ancef [place] evaluation at delivery: NRP certified personnel Admission [...] to op delivery Mother's condition: mother stable Infant's condition: infant stable in room Additional comments: Surgeon Leif Pepe Repeat c/s BTL EBL 700 Comp none Blood Loss/Details Blood loss at delivery: <1000 ml EBL (ml's): 700 at 1800 RPT #:[id number] END OF REPORT [facility] 2019-07-24 12:43:00 [facility] ([facility]) OB Admission / H P REPORT#:[id number] REPORT STATUS: Signed DATE:07/24/19 TIME: 1243 PATIENT: IDANIA DALEY UNIT #: [id number] ROOM/BED: : 81 AGE: 38 SEX: F ATTEND: Garry Moran MD ADM AUTHOR: Garry Moran MD * ALL edits or amendments must be made on the electronic/computer document * OB Admission H P Hx Chief complaint: elevated blood pressure HPI: 38 yo WF @ 37 06/27 weeks who was seen in the office today in [place] with worsening BP. She has a h/o Chronic HTN and had been on Labetolol 100 mg BID the entire without problems. She was seen recently in [facility] with increasing BPs and later placed on [...] to all abx tested. Culture done from [facility] at [facility] PNLabs: GBS positive, O negative, RI, HIV negative, HB neg, NR, GC/CH/Trich negative, NIPT normal boy, CF/SMA/FX negative, One hour @ 13 1/7 weeks 137 and @ 28 weeks was 128. H/H at 28 weeks 10.0/304. POB: T C Section, Largest was 8#15oz girl in 04/2009. No complications ENROLLED NURSE: Regular cycles. No abnormal pap smears. No [...] 03/2018 Hysteroscopic removal of IUD; 2014 Tonsillectomy; [place] Social history: employed, , no alcohol [...] Weight (lb): 248 Weight (oz): Weight (kg): 112.905848 Physical Exam Abdomen: gravid, soft, no abnormal [...] do circ on Wednesday or Pedi Dr. Zee Moran at [facility] then Dr. Griffiths planned Continue labetolol 100 mg BID pp Continue oral abx pp for UTI treatment RH negative-s/p Rhogam on 05/29 Flu shot done 04/30/19 TDAP done 06/12/19 at 1356 RPT #:[id number] END OF REPORT [facility] 2019-07-14 16:45:00 [id number] [facility] [address] [place], [place] [address] PATIENT NAME: IDANIA DALEY ADMIT DATE: 07/14/19 ACCOUNT NO: [id number] ROOM NO: AGE: 38 SEX: F ADMITTING [...] On evaluation in [place] [facility]; however, all blood pressures have been within [...] trial of labor, delivered of a female PATIENT NAME: IDANIA DALEY weighing 7 pounds 15 ounces. In 2008, full term section, without trial of labor, delivered of a female infant weighing 8 pounds 15 ounces. The patient [...] 3 daughters. 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 She states her job is stressful, working in the [employer] for child support. FAMILY HISTORY: Parents both [...] By: Rosie Hdez MD WT: HP:CHANDRIKA/DAKOTA/GET Conf#: [id number]/DID#: [id number] Authenticated and Edited by Rosie Hdez MD On 08/01/19 7:58:29 AM at 0800 PATIENT NAME: IDANIA DALEY [facility]
[2024-04-02] MEDS ORDERED: KETOROLAC 30 MG/ML INJ ONE (08:28)
[2024-04-02] MEDS ORDERED: ONDANSETRON 4 MG/2 ML VIAL ONE (08:28)
[2024-04-02] MEDS ORDERED: NA CHLORIDE 0.9% 1,000 ML ONE (08:29)
[2024-04-02 08:46] LABS: Absolute Basophils 0.1 K/uL (0-0.5); Absolute Eosinophils 0.1 K/uL (0-0.5); Absolute Lymphocytes (CBC) 1.2 K/uL (0.7-4.9); Absolute Monocytes 0.6 K/uL (0.1-1.3); Absolute Neutrophil 9.7 K/uL (1.8-8.0); Basophils % 0.7 % (0-1.3); Lymphocytes % 9.9 % (15.3-44.8); MCH 28.9 pg (27.0-35.0); MCHC 33.2 g/dL (32.0-36.0); MPV 7.8 fL (7.6-11.3); Monocytes % 5.3 % (3.3-12.3); Neutrophils % 83.1 % (41.7-73.7); Nucleated Red Blood Cells % 0.1 % (0-0); Platelets 308 thou/uL (152-406); RBC Red Blood Cell Count 4.49 M/uL (3.86-4.86); Red Cell Distribution Width 15.7 % (12.1-15.2)
[2024-04-02 08:55] LABS: Specific Gravity 1.014 (1.005-1.030)
[2024-04-02 09:00] LABS: Sqamous Epithelial <5 /HPF (None Seen); Urine Bacteria >50 /HPF (<20); Urine Culture Reflex Order REFLEXED; Urine Micro Reflex YN NO BILL MICROSCOPIC; Urine Mucus 1+ /HPF (None Seen); Urine RBC 21-50 /HPF (None Seen); Urine WBC Clump Moderate /HPF (None Seen); Urine Yeast (Budding) Few /HPF (None Seen)
[2024-04-02 09:02] LABS: Albumin 3.3 g/dL (3.4-5.0); Albumin/Globulin Ratio 0.8 (1.1-1.8); Anion Gap 8.3 mEq/L (5.0-15.0); Bilirubin Total 0.6 mg/dL (0.2-1.0); Potassium 3.3 mEq/L (3.5-5.1); Protein, Total 7.3 g/dL (6.4-8.2)
[2024-04-02 09:03] LABS: Urine WBC >50 /HPF (<5)
--- NOTE | 2024-04-02 09:23 | EDPHYS ---
Physician Documentation [facility] Name: Christa Montero Age: 43 yrs Sex: Female : 1980 Arrival Date: 04/02/2024 Time: 08:07 Bed 19 Private MD: ED Physician Conrado Mesa HPI: 04/02 08:35 This 43 yrs old Female presents to ER via Ambulatory with complaints of ec2 Urinary Problem. 08:35 Patient arrives today for evaluation of dysuria as well as increased urinary frequency, ec2 generalized body pain as well as feeling unwell. Patient reports associated nausea, no vomiting, no diarrhea. Patient reports that she is taking Azo as well as Tylenol for symptoms. Reports some improvement. Historical: - Allergies: 08:20 No Known Allergies; ll1 - PMHx: 08:20 Hypertension; ll1 - PSHx: 08:20 section; hysterectomy; ll1 - Immunization history:: Adult Immunizations up to date. - Infectious Disease History:: Denies. - Social history:: Smoking status: Patient denies any tobacco usage or history of. ROS: 08:35 Constitutional: as per hpi ec2 Exam: 08:35 Constitutional: GEN: NAD Head: atraumatic Eyes: EOMI Ears: External ears are ec2 normal. CV: Tachycardia LUNGS: no respiratory distress ABD: non-distended SKIN: no evidence of rashes MSK: no evidence of trauma Vital Signs: 08:21 BP 157 / 106; Pulse 103; Resp 18; Temp 98.4; Pulse Ox 93% on R/A; Weight 83.91 kg; ll1 Height 5 ft. 1 in. ; Pain 8/10; 09:14 BP 134 / 87; Pulse 94; Resp 18 S; Pulse Ox 95% on R/A; Pain 0/10; kc6 09:22 BP 128 / 87; Pulse 89; ec2 08:21 Body Mass Index 34.96 (83.91 kg, 154.94 cm) ll1 08:21 Pain Scale: Adult ll1 09:14 Pain Scale: Adult kc6 MDM: 08:35 Data reviewed: vital signs. ED course: Patient arrives today for evaluation of urinary ec2 complaints. Examination remarkable for slightly tachycardic individuals otherwise in no acute distress with a reassuring examination. Will obtain lab work as well as urine studies.. 09:22 ED course: Metabolic profile shows slight hypokalemia. Urine with bacteria as well as ec2 WBC clumps. Lipase within normal ranges. Presentation consistent with UTI. Will discharge home. Some antibiotics. Return precautions given. . 09:22 Patient medically screened. ec2 04/02 08:16 Order name: CBC with Diff; Complete Time: 08:57 ec2 04/02 08:16 Order name: CMP; Complete Time: 09:21 ec2 04/02 08:16 Order name: Lipase; Complete Time: 09:21 ec2 04/02 08:16 Order name: Test, Urine; Complete Time: 08:57 ec2 04/02 08:47 Order name: Urine Microscopic Only; Complete Time: 09:21 EDMS 04/02 09:04 Order name: Urine Culture EDMS 04/02 08:16 Order name: IV Saline Lock; Complete Time: 08:41 ec2 04/02 08:16 Order name: Labs collected and sent; Complete Time: 08:41 ec2 Administered Medications: 08:41 Drug: TORadol - Ketorolac IVP 15 mg IVP once Route: IVP; Site: right antecubital; kc6 09:14 Follow up: Response: No adverse reaction; Pain is decreased kc6 08:41 Drug: Ondansetron IVP 4 mg IVP once; over 2 minutes Route: IVP; Site: right antecubital;kc6 09:14 Follow up: Response: No adverse reaction; Nausea is decreased kc6 08:41 Drug: NS 0.9% IV 1000 ml IV at 1 bolus Per protocol; to be given as a bolus over 60 kc6 minutes Route: IV; Rate: 1 bolus; Site: right antecubital; 09:33 Follow up: Response: No adverse reaction; IV Status: Completed infusion; IV Intake: kc6 1000ml 09:33 Drug: Trimethoprim-Sulfamethoxazole PO (160 mg-800 mg (DS) 1 tablet PO once Route: PO; kc6 09:33 Follow up: Response: No adverse reaction kc6 Disposition Summary: 04/02/24 09:22 Discharge Ordered Notes: Location: Home ec2 Condition: Stable ec2 Diagnosis - UTI/ Urinary tract infection, site not specified ec2 - Hypokalemia ec2 Followup: ec2 - With: Private Physician - When: - Reason: Re-evaluation by your physician Discharge Instructions: - Discharge Summary Sheet ec2 - Urinary Tract Infection, Adult ec2 Forms: - Medication Reconciliation Form ec2 - Antibiotic Education ec2 - Prescription Opioid Use ec2 - Patient Portal Instructions ec2 - Leadership Thank You Letter ec2 Prescriptions: - Zofran 4 mg Oral Tablet - take 1 tablet ORAL route every 12 hours As needed; 20 tablet; Refills: 0, ec2 Product Selection Permitted - Bactrim DS 800-160 mg Oral Tablet - take 1 tablet ORAL route every 12 hours for 7 days; 14 tablet; Refills: 0, ec2 Product Selection Permitted Signatures: Dispatcher [employer] Clint Morrissey RN RN ll1 Doris Duke RN RN kc6 Conrado Mesa MD MD ec2 Corrections: (The following items were deleted from the chart) 08:47 08:16 Urinalysis+U.LAB.BRZ ordered. KYARA SPARROW
--- NOTE | 2024-04-02 09:23 | ER ---
Nurse's Notes [facility] Name: Christa Montero Age: 43 yrs Sex: Female : 1980 Arrival Date: 04/02/2024 Time: 08:07 Bed 19 Private MD: Diagnosis: UTI/ Urinary tract infection, site not specified;Hypokalemia Presentation: 04/02 08:21 Coronavirus screen: Client denies travel out of the [place] in the last 14 days. At this ll1 time, the client does not indicate any symptoms associated with coronavirus-19. Ebola Screen: Patient denies travel to an Ebola-affected area in the 21 days before illness onset. Initial Sepsis Screen: Does the patient meet any 2 criteria? No. Patient's initial sepsis screen is negative. Does the patient have a suspected source of infection? No. Patient's initial sepsis screen is negative. Risk Assessment: Do you want to hurt yourself or someone else? Patient reports no desire to harm self or others. Onset of symptoms was March 23, 2024. 08:21 Method Of Arrival: Ambulatory ll1 08:21 Acuity: MARION 3 ll1 08:24 Chief complaint: Patient states: Dysuria, frequency, nausea, JAAM, back pain for 7-10 ll1 days. No fever. Triage Assessment: 08:15 General: Appears uncomfortable, Behavior is calm, cooperative, appropriate for age. ll1 Pain: Complains of pain in back Pain currently is 8 out of 10 on a pain scale. Quality of pain is described as aching. Neuro: Reports headache. GI: Reports nausea. : Reports burning with urination, urinary frequency, oliguria. Musculoskeletal: Reports pain in back. Historical: - Allergies: 08:20 No Known Allergies; ll1 - PMHx: 08:20 Hypertension; ll1 - PSHx: 08:20 section; hysterectomy; ll1 - Immunization history:: Adult Immunizations up to date. - Infectious Disease History:: Denies. - Social history:: Smoking status: Patient denies any tobacco usage or history of. Screenin:54 [facility] ED Fall Risk Assessment (Adult) History of falling in the last 3 months, kc6 including since admission No falls in past 3 months (0 pts) Confusion or Disorientation No (0 pts) Intoxicated or Sedated No (0 pts) Impaired Gait No (0 pts) Mobility Assist Device Used No (0 pt) Altered Elimination No (0 pt) Score/Fall Risk Level 0 - 2 = Low Risk Oriented to surroundings. Abuse screen: Denies threats or abuse. Denies injuries from another. Nutritional screening: No deficits noted. Tuberculosis screening: No symptoms or risk factors identified. Assessment: 08:54 General: Appears in no apparent distress. uncomfortable, well groomed, well developed, kc6 Behavior is calm, cooperative, appropriate for age. Pain: Complains of pain in back. Neuro: Level of Consciousness is awake, alert, obeys commands, Oriented to person, place, time, situation, Appropriate for age. Cardiovascular: Capillary refill < 3 seconds. Respiratory: Airway is patent Trachea midline Respiratory effort is even, unlabored, Respiratory pattern is regular, symmetrical. GI: Reports nausea, Patient currently denies abdominal pain, diarrhea, vomiting. : Urine is blood tinged, Reports burning with urination, cramping. EENT: No signs and/or symptoms were reported regarding the EENT system. Derm: No signs and/or symptoms reported regarding the dermatologic system. Skin is intact, is healthy with good turgor, Skin is pink, warm \T\ dry. Musculoskeletal: No signs and/or symptoms reported regarding the musculoskeletal system. Circulation, motion, and sensation intact. Capillary refill < 3 seconds, Range of motion: intact in all extremities. 09:33 Reassessment: Patient appears in no apparent distress at this time. No changes from kc6 previously documented assessment. Patient and/or family updated on plan of care and expected duration. Pain level reassessed. Patient is alert, oriented x 3, equal unlabored respirations, skin warm/dry/pink. Patient states feeling better. Patient states symptoms have improved. Vital Signs: 08:21 BP 157 / 106; Pulse 103; Resp 18; Temp 98.4; Pulse Ox 93% on R/A; Weight 83.91 kg; ll1 Height 5 ft. 1 in. ; Pain 8/10; 09:14 BP 134 / 87; Pulse 94; Resp 18 S; Pulse Ox 95% on R/A; Pain 0/10; kc6 09:22 BP 128 / 87; Pulse 89; ec2 08:21 Body Mass Index 34.96 (83.91 kg, 154.94 cm) ll1 08:21 Pain Scale: Adult ll1 09:14 Pain Scale: Adult kc6 ED Course: 08:10 Patient arrived in ED. mg5 08:10 Conrado Mesa MD is Attending Physician. ec2 08:14 Arm band placed on Patient placed in an exam room, on a stretcher. ll1 08:21 Triage completed. ll1 08:26 Doris Duke, MARKO is Primary Nurse. kc6 08:41 Inserted saline lock: 20 gauge in right antecubital area, using aseptic technique. kc6 Blood collected. Flushed with 10 mL NS. Patient maintains SpO2 saturation greater than 95% on room air. 08:53 Patient has correct armband on for positive identification. Bed in low position. Call kc6 light in reach. Side rails up X 1. Adult w/ patient. Pulse ox on. NIBP on. Door closed. Noise minimized. Lights dimmed. Pillow given. 09:33 No provider procedures requiring assistance completed. IV discontinued, intact, kc6 bleeding controlled, No redness/swelling at site. Pressure dressing applied. Administered Medications: 08:41 Drug: TORadol - Ketorolac IVP 15 mg IVP once Route: IVP; Site: right antecubital; kc6 09:14 Follow up: Response: No adverse reaction; Pain is decreased kc6 08:41 Drug: Ondansetron IVP 4 mg IVP once; over 2 minutes Route: IVP; Site: right antecubital;kc6 09:14 Follow up: Response: No adverse reaction; Nausea is decreased kc6 08:41 Drug: NS 0.9% IV 1000 ml IV at 1 bolus Per protocol; to be given as a bolus over 60 kc6 minutes Route: IV; Rate: 1 bolus; Site: right antecubital; 09:33 Follow up: Response: No adverse reaction; IV Status: Completed infusion; IV Intake: kc6 1000ml 09:33 Drug: Trimethoprim-Sulfamethoxazole PO (160 mg-800 mg (DS) 1 tablet PO once Route: PO; kc6 09:33 Follow up: Response: No adverse reaction kc6 Medication: 09:34 VIS not applicable for this client. kc6 Intake: 09:33 IV: 1000ml; Total: 1000ml. kc6 Outcome: 09:22 Discharge ordered by . ec2 09:33 Discharged to home ambulatory, with significant other, kc6 09:33 Condition: improved 09:33 Discharge instructions given to patient, significant other, Instructed on discharge instructions, follow up and referral plans. medication usage, Demonstrated understanding of instructions, follow-up care, medications, Prescriptions given X 2, 09:34 Patient left the ED. kc6 Signatures: Clint Helms RN RN ll1 Doris Duke RN RN kc6 Neena Prakash 5 Conrado Mesa MD MD ec2
[2024-04-02] MEDS ORDERED: SMZ./TMP. 800/160 MG TABLET ONE (09:29)
[2024-04-02 09:46] VITALS: TEMP 98.4
[2024-04-02 09:49] VITALS: O2SAT 95
[2024-04-02 09:50] VITALS: BP 128/87
== END 2024-04-02 09:34 | disposition home or self-care (01) ==
LOC: ER 08:07
DX: N39.0 Urinary tract infection, site not specified (principal); E87.6 Hypokalemia; I10 Essential (primary) hypertension
CPT/HCPCS: 87088; 85025; 87086; 36415; 81025; 87077; 87186; 81015; 83690; 80053; J2405; J7030

== ENCOUNTER 2024-05-24 18:21 | Emergency (ER) | payer BC ==
--- OUTSIDE RECORDS SUMMARY | 2024-05-24 18:24 | XMS REPORT | Continuity of Care Document ---
Author Name Unknown Address [address] [facility] [address] [place] [address] [facility] thconnect Address [address] [facility]. [address] [place] [address] Care Team Providers Care Diagnostics Sales Developer Name Role Phone Alexandria Jenkins Attending Clinician Unavailable Farheen Moran Attending Clinician Unavailable Martha Chong Attending Clinician Unavailable Melodie Rose Attending Clinician UnavailFarheen Cobb Admitting Clinician Unavailable Martha Chong Admitting Clinician Unavailable Urbano Sanchez Admitting Clinician Unavailable Payers Payer Name Policy Type Policy Number Effective Date Expirati on Date Source Allergies, Adverse Reactions, Alerts Allergy Name Allergy Type Status Severity Reaction(s) Onset Date Inactive Date Treating Clinician Comments Source No Known Allergie s DA Active U - 00:00: 00 [facility] No Known Allergie s DA Active U - 00:00: 00 [facility] No Known Allergie s DA Active U - 00:00: 00 [facility] Procedures Procedure Date / Time Performed Performing Clinicia n Source [id number] 2019-07-24 00:00:00 [facility] [place] [facility] [id number] 2019-07-24 00:00:00 [facility] [place] [facility] Encounters Start Date/Time End Date/Time Encounter Type Admission Type Attending Clinicians Care Facility Care Department Encounter ID Source 2023-02-08 16:07:00 Outpatient Alexandria Jenkins [facility] [id number] [facility] 2019-08-02 07:15:00 Inpatient Farheen Hyman [facility] [id number] [facility] 2019-07-24 13:30:00 Inpatient Farheen Hyman [facility] [id number] [facility] 2019-07-14 13:07:00 Inpatient Kristin Morannna [facility] [id number] [facility] 2023-09-07 08:28:00 2023-09-08 10:38:00 Inpatient Martha Garcias [facility] MEDI.[address] [id number] [facility] 2023-04-12 10:44:00 2023-04-12 10:44:00 Outpatient Melodie Capps [facility] [id number] [facility] 2019-07-04 11:00:00 2019-07-04 11:00:00 Outpatient Farheen Moran [facility] [id number] [facility] Results Test Description Test Time Test Comments Results Result Co mments Source CBC W/AUTO [id number] 05:33:00* Test Item Value Reference Range Interpretation [...] = BA#) 0.0 K/mm3 AG HEPATITIS B [id number] 17:34:00* Test Item Value Reference Range Interpretation Comme nts AG HEPATITIS B SURFACE (test code = HBSAG) NONREACTIVE NONREACTIVE AB HEPATITIS C [id number] 17:34:00* Test Item Value Reference Range Interpretation Comme nts AB HEPATITIS C (test code = HCVAB) NONREACTIVE NONREACTIVE SIGNAL TO CUTOFF (test code = CUTOFF) 0.20 <0.80 N AB HIV 1 17:34:00* Test Item Value Reference Range Interpretation Comme nts AB HIV 1 2 (test code = UCD07KT) NONREACTIVE NONREACTIVE Done by Siemens CONWEAVERaur 4th Gen HIV Ag/Ab Combo Screen BASIC METABOLIC [id number] 17:32:00* Test Item Value Reference Range Interpretation [...] thepatient's age is <18 years. HCG SERUM [id number] 17:12:00* Test Item Value Reference Range Interpretation Comme nts HCG SERUM QUAL (test code = HCGQL) NEGATIVE COVID 19 Asymptomatic IH [id number] 16:25:00* Test Item Value Reference Range Interpretation [...] testsfor detection and/or diagnosis of COVID-19 under Lpymeeh194(b)(1) of the Act, 21 U.S.C. 360bbb-3(b)(1), unless theauthorization is terminated or revoked sooner. URINALYSIS [id number] 16:14:00* Test Item Value Reference Range Interpretation [...] SEEN A URINE SAMPLE: CLEAN CATCHCBC W/AUTO [id number] 16:05:00* Test Item Value Reference Range Interpretation [...] = BA#) 0.1 K/mm3 - DUP AB/PEL/SC [id number] 13:45:00 [facility] 1980 Sex: F Name: IDANIA DALEY [facility] : 1980 Age/S: 42 / F [address] [facility] Unit #: [id number] Loc: [place] [address] Phys: Melodie Rose MD Acct: [id number] Dis Date: Status: REG CLI PHONE #: [phone] Exam Date: 04/12/20231138 FAX #: Reason: EXCESSIVE MENSTRUATIONS EXAMS: CPT: [id number] AB/PEL/SC COMP 80407 CLINICAL INFORMATION: Menorrhagia. Irregular cycles. Dictation location: [...] PAGE 1 Signed Report Name: IDANIA DALEY [facility] : 1980 Age/S: 42 / F [address] [facility] Unit #: [id number] Loc: [place] [address] Phys: Melodie Rose MD Acct: [id number] Dis Date: Status: REG CLI PHONE #: [phone] Exam Date: 04/12/20231138 FAX #: Reason: EXCESSIVE MENSTRUATIONS EXAMS: CPT: [id number] DUP AB/PEL/SC COMP 88378 (Continued) Orig Print D/T: S: 04/12/2023 (1348) Probe: PAGE 2 Signed Report- US PELVIC [id number] 13:45[facility]00[facility] 1980 Sex: F Name: IDANIA DALEY [facility] : 1980 Age/S: 42 / F [address] [address] [place] Unit #: [id number] Loc: [place] [address] Phys: Melodie Rose MD Acct: [id number] Dis Date: Status: REG CLI PHONE #: [phone] Exam Date: 04/12/2023 1139 FAX #: Reason: MENORRHAGIA WITH REGULAR CYCLE EXAMS: CPT: [id number] [place] PELVIC COMPLETE [address] CLINICAL INFORMATION: Menorrhagia. Irregular cycles. Dictation location: [...] CC: Urbano Rose MD Technologist: Kim Medina Trnctb Date/Time: 04/12/2023 (5791) t.SDR.AGV PAGE 1 Signed Report Name:IDANIA DALEY [facility] : 1980 Age/S: 42 / F [address] [facility] Unit #: [id number] Loc: [place] [address] Phys: Melodie Rose MD Acct: [id number] Dis Date: Status: REG CLI PHONE #: [phone] Exam Date: 04/12/2023 1139 FAX #: Reason: MENORRHAGIA WITH REGULAR CYCLE EXAMS: CPT: [id number] US PELVIC COMPLETE [address] (Continued) Orig Print D/T: S: 04/12/2023 (1040) Probe: PAGE 2 Signed Report- US TRANSVAGINAL NON [id number] 13:45:00 [facility] 1980 Sex: F Name: IDANIA DALEY [facility] : 1980 Age/S: 42 / F [address] [facility] Unit #: [id number] Loc: [place] [address] Phys: Melodie Rose MD Acct: [id number] Dis Date: Status: REG CLI PHONE #: [phone] Exam Date: 04/12/2023 1136 FAX #: Reason: MENORRHAGIA WITH REGULAR CYCLE EXAMS: CPT: [id number] [place] [address] CLINICAL INFORMATION: Menorrhagia. Irregular cycles. Dictation location: [...] Rose MDTechnologist: Kim Medina Trnscb Date/Time: 04/12/2023 (8609) BensonAGV PAGE 1 Signed Report Name: IDANIA DALEY [facility] : 1980 Age/S: 42 / F [address] [address] [place] Unit #: [id number] Loc: [place] [address] Phys: Melodie Rose MD Acct: [id number] Dis Date: Status: REG CLI PHONE #: [phone] Exam Date: 04/12/2023 1138 FAX #: Reason: MENORRHAGIA WITH REGULAR CYCLE EXAMS: CPT: [id number] [place] [address] (Continued) Orig Print D/T: S: 04/12/2023 (4443) Probe: [id number] PAGE 2 Signed Report FALLOPIAN TUBE,[id number] 15:04:00 RUN DATE: 07/26/19 [facility] PAGE 1 RUN TIME: 1922 Specimen Inquiry RUN USER: INTERFACE ------- -----PATIENT: IDANIA DALEY LOC: [place] U #: [id number] AGE/SX: 38/F ROOM: [facility] RE07/24/19REG DR: Farheen Moran MD : [birth year] BED: A DIS: STATUS: ADM IN TLOC: SPEC #: [id number] RECD: 07/24/19 STATUS: KAILYN CARDONA #: [id number] THOMAS: 07/24/19- SUBM DR: Farheen Moran MD ENTERED: 07/25/19 SP TYPE: [facility] OT DR: Zina aYdav MD ORDERED: LEVEL II SURGIC/2 CODES: [id number] - FALLOPIAN TUBE COPIES TO: Zina Yadav MD [address] [facility] [address] [place] [address] [email or web address] Farheen Moran MD [address] [facility] [address] [place] [address] PROCEDURES: LEVEL II SURGIC (Incomplete) TISSUES: FALLOPIAN TUBE, NOS - BILATERAL FALLOPIAN TUBES CLINICAL HISTORY 38 year old, @ 37.1 weeks, CHTN (kr) FINAL DIAGNOSIS Specimen #1 right fallopian tube, segmental resection: - histologic - complete lumen demonstrated Specimen #2 left fallopian tube, perry resection: - histologic - complete lumen demonstrated CPT code(s): 89957 x2 cds/wpd 07/26/19 CONTINUED ON NEXT PAGE RUN DATE: 07/26/19 [facility] PAGE 2 RUN TIME: 1922 Specimen Inquiry RUN USER: INTERFACE SPEC #: [id number] PATIENT: IDANIA DALEY #[id number] (Continued) GROSS DESCRIPTION ANATOMIC SOURCE OF TISSUE (per Requisition): Fallopian right and left tube segments (two containers) Each specimen is labeled with the patient's name and medical record number. Specimen #1 is designated "right fallopiantube" and consists of a 1.0 cm in length and 0.4 cm in diameter pink-purple and hyperemic segment of fallopian tube. The lumen is pinpoint. Bank Secrecy Act Officer sections are submitted labeled A1. Specimen #2 [...] 07/26/19 1504 END OF REPORT CBC W/AUTO [id number] 05:36:00* Test Item Value Reference Range Interpretation [...] = PLTMR) NORMAL NORMAL AG HEPATITIS B [id number] 16:21:00* Test Item Value Reference Range Interpretation Comme nts AG HEPATITIS B SURFACE (test code = HBSAG) NONREACTIVE NONREACTIVE IS CONSENT FORM SIGNED FOR HIV TESTING? YAB HEPATITIS C [id number] 16:21:00* Test Item Value Reference Range Interpretation Comme nts AB HEPATITIS C (test code = HCVAB) NONREACTIVE NONREACTIVE SIGNAL TO CUTOFF (test code = CUTOFF) 0.15 <0.80 N IS CONSENT FORM SIGNED FOR HIV TESTING? YAB [id number] 16:21:00* Test Item Value Reference Range Interpretation Comme nts AB TREPONEMA (test code = TREPAB) NONREACTIVE NONREACTIVE IS CONSENT FORM SIGNED FOR HIV TESTING? YAB HIV 1 16:21:00* Test Item Value Reference Range Interpretation Comme nts AB HIV 1 2 (test code = MQN36ZK) NONREACTIVE NONREACTIVE Done by Siemens CONWEAVERaur 4th Gen HIV Ag/Ab Combo Screen IS CONSENT FORM SIGNED FOR HIV TESTING? YAG HEPATITIS B [id number] 15:52:00* Test Item Value Reference Range Interpretation Comme nts AG HEPATITIS B SURFACE (test code = HBSAG) NONREACTIVE NONREACTIVE IS CONSENT FORM SIGNED FOR HIV TESTING? YAB HEPATITIS C [id number] 15:52:00* Test Item Value Reference Range Interpretation Comme nts AB HEPATITIS C (test code = HCVAB) NONREACTIVE SIGNAL TO CUTOFF (test code = CUTOFF) <0.80 IS CONSENT FORM SIGNED FOR HIV TESTING? KINGB [id number] 15:52:00* Test Item Value Reference Range Interpretation Comme nts AB TREPONEMA (test code = TREPAB) NONREACTIVE NONREACTIVE IS CONSENT FORM SIGNED FOR HIV TESTING? SANTY HIV 1 15:52:00* Test Item Value Reference Range Interpretation Comme nts AB HIV 1 2 (test code = WVO43SX) NONREACTIVE IS CONSENT FORM SIGNED FOR HIV TESTING? YUR PROTEIN/CREATININE [id number] 15:35:00* Test Item Value Reference Range Interpretation Comme nts UR PROTEIN RANDOM (test code = PROTU) 33.0 mg/dL UR CREATININE RANDOM (test code = CREATU) 78.8 mg/dL PROTEIN/CREATININE RATIO (te st code = P/CRATIO) 410.0 mg/gcrea <200 H URIC [id number] 15:02:00* Test Item Value Reference Range Interpretation Comme nts URIC ACID (test code = URIC) 4.7 mg/dL 2.6-6.0 N [id number] 15:02:00* Test Item Value Reference Range Interpretation Comme nts SGOT/AST (test code = AST) 33 units/L 15-37 SGPT/[id number] 15:02:00* Test Item Value Reference Range Interpretation Comme nts SGPT/ALT (test code = ALT) 24 units/L 12-78 N LACTIC DEHYDROGENASE(LDH)2019-07-24 15:02:00* Test Item Value Reference Range Interpretation Comme nts LACTIC DEHYDROGENASE(LDH) (t est code = LDH) 198 units/L 81-234 N URINALYSIS W/O [id number] 14:30:00* Test Item Value Reference Range Interpretation Comme nts UA GLUCOSE DIPSTICK (test co de = DGLUU) NEGATIVE NEGATIVE UA KETONE DIPSTICK (test cod e = KETU) 1+ NEGATIVE UA PROTEIN DIPSTICK (test co de = PROU) NEGATIVE NEGATIVE IS NURSE PERFORMING TEST? NCBC W/AUTO [id number] 14:28:00* Test Item Value Reference Range Interpretation [...] = PLTMR) NORMAL NORMAL AG HEPATITIS B [id number] 15:57:00* Test Item Value Reference Range Interpretation Comme nts AG HEPATITIS B SURFACE (test code = HBSAG) NONREACTIVE NONREACTIVE AB HEPATITIS C [id number] 15:57:00* Test Item Value Reference Range Interpretation Comme nts AB HEPATITIS C (test code = HCVAB) NONREACTIVE NONREACTIVE SIGNAL TO CUTOFF (test code = CUTOFF) 0.15 <0.80 N AB [id number] 15:57:00* Test Item Value Reference Range Interpretation Comme nts AB TREPONEMA (test code = TREPAB) NONREACTIVE NONREACTIVE AG HEPATITIS B [id number] 15:22:00* Test Item Value Reference Range Interpretation Comme nts AG HEPATITIS B SURFACE (test code = HBSAG) NONREACTIVE NONREACTIVE AB HEPATITIS C [id number] 15:22:00* Test Item Value Reference Range Interpretation Comme nts AB HEPATITIS C (test code = HCVAB) NONREACTIVE SIGNAL TO CUTOFF (test code = CUTOFF) <0.80 AB [id number] 15:22:00* Test Item Value Reference Range Interpretation Comme nts AB TREPONEMA (test code = TREPAB) NONREACTIVE NONREACTIVE BLOOD UREA [id number] 14:50:00* Test Item Value Reference Range Interpretation Comme nts BLOOD UREA NITROGEN (test code = BUN) 9 mg/dL 7-18 N [id number] 14:50:00* Test Item Value Reference Range Interpretation Comme nts CREATININE (test code = CREAT) 0.6 mg/dL 0.5-1.0 N URIC [id number] 14:50:00* Test Item Value Reference Range Interpretation Comme nts URIC ACID (test code = URIC) 4.7 mg/dL 2.6-6.0 N SGOT/[id number] 14:50:00* Test Item Value Reference Range Interpretation Comme nts SGOT/AST (test code = AST) 21 units/L 15-37 N SGPT/[id number] 14:50:00* Test Item Value Reference Range Interpretation Comme nts SGPT/ALT (test code = ALT) 21 units/L 12-78 N LACTIC DEHYDROGENASE(LDH)2019-07-14 14:50:00* Test Item Value Reference Range Interpretation Comme nts LACTIC DEHYDROGENASE(LDH) (t est code = LDH) 176 units/L 81-234 N URINALYSIS [id number] 14:45:00* Test Item Value Reference Range Interpretation [...] NONE SEEN URINE SAMPLE: CLEAN CATCHCBC W/AUTO [id number] 14:37:00* Test Item Value Reference Range Interpretation [...] code = PLTMR) NORMAL NORMAL - US [facility] [id number] 12:29:00Patient Name: IDANIA DALEY Unit No: [id number] EXAMS: C[place]: [id number] [place] [address] [facility] [address] OBSTETRICAL ULTRASOUND REPORT Pat. Name: IDANIA DALEY Pat. No: [id number] Study Date: 07/04/2019 11:28am , Age: 03 1980, 38 Pregnancies: 4, Para 3 LMP: 11/06/2018 GA by LMP: 34w2d GA by 1st: 34w2d GA by US: 35w2d GA Selected: 34w2d (LMP) MARIANA: 08/13/2019 Talisha stephens MD: Farheen Moran Overseer Kosher Kitchen: Lacey Levin RDMS, RVT CPT4: USPREGFU Admitting MD: Farheen Moran Hist/Ind: SCAN 3 F/U GROWTH HTN MEASUREMENTS AGE GROWTH EVALUATION Measurement GA Range Srce %for GA Ratios ----- ---- ------- BPD 8.9 cm 36w4d (57f3d-76o7g) Hadl BPD 83% FL/BPD 0.73 (0.71 - 0.87) HC 32.4 cm 36w1d (11s8c-73p8x) Hadl HC 82% FL/AC 0.19 (0.20 - 0.24* APD 11.2 cm APD HC/AC 0.94 (0.94 - 1.13* TAD 10.8 cm TAD CI 0.81 (0.70 - 0.86) AC 34.6 cm 38w5d (53c7t-92p8g) Hadl AC >95 FL 6.5 cm 33w2d (60u3f-63k4k) Hadl FL 34% HL 6.0 cm 34w5d (98n5o-79e7m) Jona HL 58% GA for sonogram 35w2d (40z3f-08y9k) Weight Estimate: based on (BPD,HC,AC,FL) Hadlock Weight: 3045 gm (4952-6927) Hadlo : 6lbs, 11oz Normal: 2283 gm (1647-3774) Brenn Wt% >90 for 34.3 wks Cervical [...] size is large for gestational age. [facility] NAME: IDANIA DALEY Radiology Department PHYS: Farheen Garcia MD [address] : 1980 AGE: 38 SEX: F [place], [place] [address] LOC: AyannaRAD PHONE #: [phone] EXAM DATE: 07/04/2019 STATUS: SUNITA CLI FAX #: [phone] RAD NO: Page 1 Signed Report (CONTINUED) Patient Name: IDANIA DALEY Unit No: [id number] EXAMS: CPT [place]: [id number] [place] [address] (Continued) growth: Suspect LGA fetus (>90%) motion and organs seen: heart motion seen body and limb movements observed Placental location: Anterior Placental maturity : Grade 2 There is no evidence of placenta previa. Amniotic fluid volume is normal. Uterus and adnexa: No significant abnormality is seen. Thank you for allowing us to participate in the care of this patient. Agustin Hall M.D. Electronic Signature 07/04/2019 12:29pm at 1229 Reported and signed by: Agustin Hall MD CC: Farheen MoranWY Technologist: Lacey Levin RDMS, RVT Probe: Trnscrbd D/ (1229) [email or web address].YOS Orig Print D/T: S: 07/04/2019 (1229) [facility] NAME: EDIIDANIA Radiology Department PHYS: Farheen Garcia MD [address] : 1980 AGE: 38 SEX: F [place] [address] LOC: Pearl.RAD PHONE #: [phone] EXAM DATE: 07/04/2019 STATUS: REG CLI FAX #: [phone] RAD NO: Page 2 Signed Report Patient Name: IDANIA DALEY Unit No: [id number] EXAMS: CPT CODE: [id number] [place] [address] (Continued) [facility] NAME: Ruben DALEYdiology Department PHYS: Farheen Garcia MD [address] : 1980 AGE: 38 SEX: F [place] [address] LOC: Pearl.RAD PHONE #: [phone] EXAM DATE: 07/04/2019 STATUS: REG CLI FAX #: [phone] RAD NO: Page 3 Signed Report- US PREG AFTER [id number] 10:50:00Patient Name: IDANIA DALEY Unit No: [id number] EXAMS: CPT CODE: [id number] US PREG AFTER TRI [address] [facility] [address] [place], [place] [address] OBSTETRICAL ULTRASOUND REPORT Pat. Name: IDANIA DALEY Pat. No: [id number] Study Date: 03/27/2019 9:50am , Age: 03 1980, 38 Pregnancies: 4, Para 3 LMP: 11/06/2018 GA by LMP: 20w1d GA by 1st: 20w1d GA by US: 21w2d GA Selected: 20w1d (LMP) MARIANA: 08/13/2019 Referring MD: Farheen Moran Overseer Kosher Kitchen: Amira Jiang RDMS CPT4: RSYKFTQ9I Admitting MD: Farheen Moran Hist/Ind: ANATOMY SCAN 2 MEASUREMENTS AGE GROWTH EVALUATION Measurement GA Range Srce %for GA Ratios ----- ---- ------- BPD 4.9 cm 20w6d (68t1f-42v9y) Hadl BPD 72% FL/BPD 0.65 HC 18.2 cm 20w3d (18w6d- 22w1d) Hadl HC 61% FL/AC 0.19 APD 5.4 cm APD HC/AC1.08 (1.06 - 1.24) TAD 5.3 cm TAD CI 0.80 (0.70 - 0.86) AC 16.8 cm 21w4d (59y3v-85p0c) Hadl AC 83% FL 3.2 cm 19w4d (69r7m-64j9b) Hadl FL 39% HL 3.0 cm 19w6d (47u9t-91p5p) Jona HL 46% GA for sonogram 21w2d (33g7h-26o4n) Weight Estimate: based on (BPD,AC) Hadlock Weight: [...] vessel umbilical cord noted Placental location: [facility] NAME: YVONNE DALEYI Radiology Department PHYS: Farheen Garcia MD [address] : 1980 AGE: 38 SEX: F [place], [place] [address] LOC: AyannaRAD PHONE #: [phone] EXAM DATE: 03/27/2019 STATUS: REG CLI FAX #: [phone] RAD NO: Page 1 Signed Report (CONTINUED) Patient Name: IDANIA DALEY Unit No: [id number] EXAMS: CPT CODE: [id number] US PREGAFTER 1ST TRI [address] (Continued) Anterior Placental maturity : Grade 1 There is no evidence of placenta previa. Amniotic fluid volume is normal. Uterus and adnexa: No significant abnormality is seen.Thank you for allowing us to participate in the care of this patient. Andre Felix M.D. Electronic Signature 03/27/2019 10:50am at 1050 Reported and signed by: Andre Felix MD CC: Farheen Moran MD Technologist: Amira Jiang RDMS Probe: Trnscrbd D/ (1050) [email or web address] Orig Print D/T: S: 03/27/2019 (1050) [facility] NAME: IDANIA DALEY Radiology Department PHYS: [facility] - Farheen Moran MD [address] : 1980 AGE: 38 SEX: F [place] [address] LOC: AyannaRAD PHONE #: [phone] EXAM DATE: 03/27/2019 STATUS: REG CLI FAX #: [phone] RAD NO: Page 2 Signed Report Patient Name: IDANIA DALEY Unit No: [id number] EXAMS: CPT CODE: [id number] US PREGAFTER 1ST TRI [address] (Continued) [facility] NAME: IDANIA DALEY [facility]iology [facility] Far[facility]en Moran MD [address] : 1980 AGE: 38 SEX: F [place] [address] LOC: AyannaRAD PHONE #: [phone] EXAM DATE: 03/27/2019 STATUS: REG CLI FAX#: [phone] RAD NO: Page 3 Signed Report- US PREG EVAL 1ST [id number] 15:04:00Patient Name: IDANIA DALEY Unit No: [id number] EXAMS: CPT CODE: [id number] US PREG EVAL 1ST TRIMTR [address] [address] [place], [place] [address] OBSTETRICAL ULTRASOUND REPORT Pat. Name: IDANIA DALEY Pat. No: [id number] Study Date: 02/06/2019 1:53pm , Age: 03 1980, 38 Pregnancies: 4, Para 3 LMP: 11/06/2018 GA by LMP: 13w1d GA by US: 13w2d GA Selected: 13w1d (LMP) MARIANA: 08/13/2019 Referring MD: FARHEEN MORAN Overseer Kosher Kitchen: Lacey Levin RDMS, RVT CPT4: PMOWQG1TPF Admitting MD: FARHEEN MORAN/Ind: SCAN 1 VIABILITY IL ASUREMENTS AGE GROWTH EVALUATION Measurement GA Range Srce %for GA Ratios ----- ---- ------- CRL 7.4 cm 13w4d (32v9x-00t2b) Hadl CRL 67% FL 1.1 cm 13w1d (75x1e-71d6k) Hadl FL 50% GA for sonogram 13w2d (11j0e-87p6k) based on (CRL,FL) Avg Cervical Length: 3.7 [...] Gore M.D. Electronic Signature 02/06/2019 03:04pm [facility] NAME: IDANIA DALEY Radiology Department PHYS: 01 - Farheen Moran MD [address] : 1980 AGE: 38 SEX: F [place], [place] [address] LOC: AyannaRAD PHONE #: [phone] EXAM DATE: 02/06/2019 STATUS: PRE CLI FAX #: [phone] RAD NO: Page 1 Signed Report (CONTINUED) Patient Name: IDANIA DALEY Unit No: [id number] EXAMS: CPT CODE: [id number] US PREG EVAL 1ST [id number] (Continued) at 1504 Reported and signed by: Billie Gore MD CC: Farheen Moran MD Technologist: Lacey Levin RDMS, RVT Probe: Trnscrbd D/ (1504) [email or web address].NMG Orig Print D/T: S: 02/06/2019 (1503) [facility] NAME: IDANIA DALEY Radiology Department PHYS: [facility] Farheen Aguiar MD [address] : 1980 AGE: 38 SEX: F [place] [address] LOC: AyannaRAD PHONE #: [phone] EXAM DATE: 02/06/2019 STATUS: PRE CLI FAX #: [phone] RAD NO: Page 2 Signed Report Patient Name: IDANIA DALEY Unit No: [id number] EXAMS: CPT CODE: [id number] US PREG EVAL 1ST TRIMTR [address] (Continued)[facility] NAME: IDANIA DALEY Radiology Department PHYS: [facility] Farheen Moran MD [address] : 1980 AGE: 38 SEX: F [place] [address] LOC: AyannaRAD PHONE #: [phone] EXAM DATE: 02/06/2019 STATUS: PRE CLI FAX #: [phone] RAD NO: Page 3 Signed Report- US PREG UT TRANSVAGINAL 2019-02-06 15:04:00Patient Name: IDANIA DALEY Unit No: [id number] EXAMS: CPT CODE: [id number] US PREG UT TRANSVAGINAL [address] [facility] [address] [place], [place] [address] OBSTETRICAL ULTRASOUND REPORT -------- Pat. Name: IDANIA DALEY Pat. No: [id number] Study Date: 02/06/2019 1:53pm , Age: 03 1980, 38 Pregnancies: 4, Para 3 LMP: 11/06/2018 GA by LMP: 13w1d GA by US: 13w2d GA Selected: 13w1d (LMP) MARIANA: 08/13/2019 Referring MD: Farheen Moran Overseer [employer] Kitchen: Lacey Levin RDMS, RVT CPT4: USPRUTTRVG Hist/Ind: SCAN 1 VIABILITY MEASUREMENTS AGE GROWTH EVALUATION Measurement GA Range Srce %for GA Ratios ----- ---- CRL 7.4 cm 13w4d (82f4f-73j5a) Hadl CRL 67% FL 1.1 cm 13w1d (54j1v-88p8v)Hadl FL 50% GA for sonogram 13w2d (27t0n-07n9q) based on (CRL,FL) Avg Cervical Length: 3.7 cm FetalHeart Rate: 162 bpm MATERNAL ANATOMY Ovaries LxHxW [...] Billie Gore M.D. Electronic Signature 02/06/2019 03:04pm [facility] NAME: IDANIA DALEY [facility] iology Department PHYS: [email or web address] - Farheen Moran MD [address] : 1980 AGE: 38 SEX: F [place], [place] [address] LOC: MESSI PHONE #: [phone] EXAM DATE: 02/06/2019 STATUS: PRE CLI FAX #: [phone] RAD NO: Page 1 Signed Report (CONTINUED) Patient Name: IDANIA DALEY Unit No: [id number] EXAMS: CPT CODE: [id number] [facility] [address] (Continued) at 1503 Reported and signed by: Billie Gore MD CC: Farheen Moran MD Technologist: Lacey Levin RDMS, RVT Probe: [id number] Trnscrbd D/ (1508) Kunal Orig Print D/T: S: 02/09/2019 (5383) [facility] NAME: IDANIA DALEY Radiology Department [facility] Farheen Moran MD [address] : 1980 AGE: 38 SEX: F [place] [address] LOC: AyannaRAD PHONE #: [phone] EXAM DATE: 02/06/2019 STATUS: PRE CLI FAX #: [phone] RAD NO: Page 2 Signed Report Patient Name: IDANIA DALEY Unit No:[id number] EXAMS: CPT CODE: [id number] PREG UT TRANSVAGINAL [id number] (Continued) [facility] NAME: IDANIA DALEY Radiology Department PHYS: NERIS Ojeda Farheen Moran MD [address] : 1980 AGE: 38 SEX: F [place] [address] LOC: AyannaRAD PHONE #: [phone] EXAM DATE: 02/06/2019 STATUS: PRE CLI FAX #: [phone] RAD NO: Page 3 Signed Report Notes Date/Time Note Provider Source 2023-09-08 08:51:00 [id number] [place] [address] PATIENT NAME: IDANIA DALEY ADMIT DATE: 09/07/23 ACCOUNT NO: [id number] ROOM NO: [facility] AGE: 43 SEX: F ADMITTING PHYSICIAN: Martha [...] lysis of adhesions. SURGEON: Martha Chong MD SENIOR ENGINEERING MANAGER: Haroon Massey ANESTHESIA: General. ESTIMATED BLOOD [...] was placed in dorsal lithotomy position in [facility]. She was prepped and draped in [...] the tube. Tube was removed through the captain's assistant port. Same was performed on the [...] Throughout the case, Haroon Massey acted as desk assistant. He provided protection and retraction. He [...] Date Transcribed: 09/08/2023 09:37:34 NNT/MORGAN Receipt ID: [id number] Authenticated and Edited by Martha Chong MD On 09/19/23 8:23:19 PM at 0824 PATIENT NAME: IDANIA DALEY [facility] 2023-09-08 08:31:00 [facility] Gynecology Post Prog Note REPORT#:[id number] REPORT STATUS: Signed REPORT INITIALIZATION DATE:09/08/23 TIME: 830 PATIENT: IDANIA DALEY UNIT #: [id number] ROOM/BED: 2662-A : [birth year] AGE: 42 SEX: F ATTEND: [...] Room air 09/07 044 Temp 98.4 09/07 044 Pulse 98 09/07 044 Resp 17 09/07 [...] (Auto) (14.5 - 29.7 %) 14.4 L [place] % (Auto) (3.6 - 10.2 %) 6.9 Eos % (Auto) (0.0 - 3.0 %) 0.0 Baso % (Auto) (0.1 - 0.9 %) 0.3 Neut # (Auto) (K/mm3) 10.5 Lymph # (Auto) (K/mm3) 1.9 [place] # (Auto) (K/mm3) 0.9 Eos # (Auto) (K/mm3) 0 Baso # (Auto) (K/mm3) 0.0 Diagnosis, Assessment Plan Free Text A P: Doing well. HD stable. Good U/O and GI fxn. Plan: Cont reg diet PO pain meds D/C today Precautions given at 0833 RPT #:[id number] END OF REPORT [facility] 2023-09-03 16:14:00 [id number] [place] [address] PATIENT NAME: IDANIA DALEY ADMIT DATE: ACCOUNT NO: [id number] ROOM NO: AGE: 42 SEX: F ADMITTING PHYSICIAN: ATTENDING PHYSICIAN: Martha Chong MD Order: [id number] Test Reason : PRE- OP (09/07/2023) Test [...] ECGs available Confirmed by SHELLEY COOLEY MD ([id number]) on 09/06/2023 6:07:33 PM Referred By: DOES_NOT KNOW Confirmed by:SHELLEY COOLEY MD at 180 PATIENT NAME: IDANIA DALEY [facility] 2019-08-13 12:03:00 [id number] [place] [address] PATIENT NAME: IDANIA DAELY ADMIT DATE: 07/24/19 ACCOUNT NO: [id number] ROOM NO: 2035 AGE: 38 SEX: F ADMITTING PHYSICIAN: Farheen Moran MD ATTENDING PHYSICIAN: Farheen Moran MD ADMISSION DATE: 07/24/2019 DISCHARGE DATE: [...] section; and bilateral tubal ligation. DISCHARGE MEDICATIONS: [place] 5, Motrin, vitamins, and labetalol 100 mg p.o. b.i.d. DISCHARGE INSTRUCTIONS: Pelvic rest, no heavy lifting, wound and fever precautions, blues and depression precautions, and preeclampsia precautions. Follow up with Dr. Moran in 6 weeks. Blood pressure checks at home twice a day. Call for blood pressure over 160/100 or symptoms. HOSPITAL COURSE: Ms. aDley was admitted on the July 24 from [...] 7 days. This was cleared with the hospice volunteer coordinator. Dictated By: Farheen Moran MD WT: DS:CHANDRIKA/ANAYA.GET Conf#: [id number]/DID#: [id number] PATIENT NAME: IDANIA DALEY Authenticated by Farheen Moran MD On 08/13/2019 12:47:03 PM at 1247 PATIENT NAME: IDANIA DALEY [facility] 2019-07-27 08:36:00 [facility] ([facility]) OB Postpart Progr Note REPORT#:[id number] REPORT STATUS: Signed DATE:07/27/19 TIME: 08 PATIENT: IDANIA DALEY UNIT #: [id number] ROOM/BED: 2036-A : 81 AGE: 38 SEX: F ATTEND: Farheen Moran MD ADM AUTHOR: Farheen Moran MD * ALL edits or amendments [...] Documented: Result Date Time B/P 118/73 07/27 357 Temp 98.5 07/27 0358 Pulse 88 07/27 [...] 6 weeks Prec given at 0838 RPT #:[id number] END OF REPORT [facility] 2019-07-26 09:10:00 [facility] ([facility]) OB Postpart Progr Note REPORT#:[id number] REPORT STATUS: Signed DATE:07/26/19 TIME: 09 PATIENT: IDANIA DALEY UNIT #: [id number] ROOM/BED: 2036-A : 81 AGE: 38 SEX: F ATTEND: Farheen Moran MD ADM AUTHOR: Farheen Moran MD * ALL edits or amendments [...] Resp B/P B/P Mean Pulse Ox FiO2 07/25-07/26 97.6-99.1 90-100 18-20 102-121/66-75 85.7-90.5 Last Documented: [...] (14.3 - 34.3 %) 8.2 L 18.1 [place] % (Auto) (5.1 - 10.4 %) 5.6 7.1 Eos % (Auto) (0.1 - 3.0 %) 0.1 1.0 Baso % (Auto) (0.1 - 1.0 %) 0.2 0.4 Neut # (Auto) (K/mm3) 13.2 5.9 Lymph # (Auto) (K/mm3) 1.3 1.5 [place] # (Auto) (K/mm3) 0.9 0.6 Eos # [...] days. Will confirm no bilirubin elevations with hospice volunteer coordinator. at 0914 RPT #:[id number] END OF REPORT [facility] 2019-07-25 08:52:00 [facility] ([facility]) OB Postpart Progr Note REPORT#:[id number] REPORT STATUS: Signed DATE:07/25/19 TIME: 851 PATIENT: IDANIA DALEY UNIT #: [id number] ROOM/BED: [address] : [birth year] AGE: 38 SEX: F ATTEND: Farheen Moran MD ADM AUTHOR: Zina Yadav MD [...] 130/78 02/03 2130 93 14 92 02/03 2115 89 16 94 02/03 2100 94.0 02/03 2100 92 25 128/72 93 02/03 2030 91.0 02/03 2030 95 02/03 2030 91 [...] (14.3 - 34.3 %) 8.2 L 18.1 [place] % (Auto) (5.1 - 10.4 %) 5.6 7.1 Eos % (Auto) (0.1 - 3.0 %) 0.1 1.0 Baso % (Auto) (0.1 - 1.0 %) 0.2 0.4 Neut # (Auto) (K/mm3) 13.2 5.9 Lymph # (Auto) (K/mm3) 1.3 1.5 [place] # (Auto) (K/mm3) 0.9 0.6 Eos # [...] discussed with: patient, spouse/partner at 0854 RPT #:[id number] [facility] 2019-07-24 18:08:00 [id number] [facility] [place] [address] PATIENT NAME: IDANIA DALEY ADMIT DATE: 07/24/19 ACCOUNT NO: [id number] ROOM NO: 2036 AGE: 38 SEX: F ADMITTING PHYSICIAN: Farheen Moran MD ATTENDING PHYSICIAN: Farheen Moran MD OPERATION DATE: 07/24/2019 PREOPERATIVE DIAGNOSES: [...] bilateral tubal sterilization. SURGEON: Zina Yadav MD SENIOR ENGINEERING MANAGER: Radha Hernandez SA ANESTHESIA: Combined epidural spinal per Dr. Loyd. FINDINGS: Delivered a viable vigorous male infant at 1719 from the vertex position. Copious [...] Cord was clamped and cut and the was shown to his parents and handed [...] 0 Vicryl in a running-locking fashion. Multiple dnxxdq-su-kwmga sutures were required for hemostasis. The area was inspected for hemostasis, which was noted to be excellent. A moist lap was placed across the lower uterine segment and the right tube was grasped utilizing a [place] clamp. An avascular space was noted in [...] midpoint of the uterine incision and a skypdc-vp-cvmfr suture was placed with excellent hemostasis. Both [...] By: Zina Yadav MD WT: OP:FKWAKU/YEIMI/GET Conf#: [id number]/DID#: [id number] Authenticated and Edited by Zina Yadav MD On 07/25/19 8:55:41 AM at 0858 PATIENT NAME: IDANIA DALEY [facility] 2019-07-24 17:56:00 [facility]) OB Delivery Note REPORT#:[id number] REPORT STATUS: Signed DATE:07/24/19 TIME: 1755 PATIENT: IDANIA DALEY UNIT #: [id number] ROOM/BED: [address] : [birth year] AGE: 38 SEX: F ATTEND: Farheen Moran MD ADM AUTHOR: Zina Yadav MD [...] Wt of baby (grams): 3760 Gender: male, Grant Delivery section Abdominal incision: Pfannenstiel Primary indication: previous , Chronic htn with superimposed preeclampsia Priority: indicated (add on) Antibiotic prior to incision: 1 dose )(SCDs applied activated: Yes Incision: low transverse Hemorrhage: no Uterine scar: intact Consent: indication discussed, questions answered, pt consent to op delivery Mother's condition: mother stable Infant's condition: stable in room Additional comments: Surgeon Leif Pepe Repeat c/s BTL EBL 700 Comp none Blood Loss/Details Blood loss at delivery: <1000 ml EBL (ml's): 700 at 1800 RPT #:[id number] END OF REPORT [facility] 2019-07-24 12:43:00 [facility]) OB Admission / H P REPORT#:[id number] REPORT STATUS: Signed DATE:07/24/19 TIME: 1243 PATIENT: IDANIA DALEY UNIT #: [id number] ROOM/BED: : 81 AGE: 38 SEX: F ATTEND: Farheen Moran MD ADM AUTHOR: Farheen Moran MD * ALL edits or amendments must be made on the electronic/computer document * OB Admission H P Hx Chief complaint: elevated blood pressure HPI: 38 yo WF @ 37 1/7 weeks who was seen in the office today in [place] with worsening BP. She has a h/o Chronic HTN and had been on Labetolol 100 mg BID the entire without problems. She was seen recently in [facility] with increasing BPs and later placed on modified bedrest at home on 07/19. Since then, her BPs have been up to 167/109. Today in the office her BP is 150/90 and 152/ 110. She also reports decreased FM today. There is no JAMA, visual changes, RUQ pain. No VB/LOF. PNC: Dr. Farheen Moran 1. HTN-on meds before off and on. Started on Labetolol 100mg BID on @ 10 weeks and has remained on same dose throughout . Took baby ASA until 36 weeks 2. Prior C/S x 3 and MPDPS-scheduled for repeat c/section and bilateral salpingectomy. 3. RH negative-s/p Rhogam @ 29 1 weeks 4. Third trimester anemia-placed on iron 2x/day 5. 4 cm left ovarian cyst seen on early scan but adnexa not seen on f/u USG. To check left adnexa at the time of scheduled surgery 6. E. coli UTI (100,000) dx'd 07/14 and has not been treated yet. Sensitive to all abx tested. Culture done from [facility] at [facility] PNLabs: GBS positive, O negative, RI, HIV negative, HB neg, NR, GC/CH/Trich negative, NIPT normal boy, CF/SMA/FX negative, One hour @ 13 1/7 weeks 137 and @ 28 weeks was 128. H/H at 28 weeks 10.0/304. POB: T C Section, Largest was 8#15oz girl in 04/2009. No complications REGRADER: Regular cycles. No abnormal pap smears. No [...] 03/2018 Hysteroscopic removal of IUD; 2014 Tonsillectomy; [place] [facility] Social history: employed, , no alcohol [...] Weight (lb): 248 Weight (oz): Weight (kg): 112.472650 Physical Exam Abdomen: gravid, soft, no abnormal [...] Wednesday or Pedi Dr. Zee Moran at [facility] then Dr. Griffiths planned Continue labetolol 100 mg BID pp Continue oral abx pp for UTI treatment RH negative-s/p Rhogam on 05/29 Flu shot done 04/30/19 TDAP done 06/12/19 at 1356 RPT #:[id number] END OF REPORT [facility] 2019-07-14 16:45:00 [id number] [facility] [address] [place], [place] [address] PATIENT NAME: IDANIA DALEY ADMIT DATE: 07/14/19 ACCOUNT NO: [id number] ROOM NO: AGE: 38 SEX: F ADMITTING PHYSICIAN: ATTENDING PHYSICIAN: Farheen Moran MD TRIAGE EVALUATION: 07/14/2019 HISTORY OF [...] On evaluation in [place] at the [facility]; however, all blood pressures have been within [...] 3 daughters. 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 She states her job is stressful, working in the [employer] for child support. FAMILY HISTORY: Parents both [...] By: Rosie Hdez MD WT: HP:CHANDRIKA/DAKOTA/GET Conf#: [id number]/DID#: [id number] Authenticated and Edited by Rosie Hdez MD On 08/01/19 7:58:29 AM at 0800 PATIENT NAME: IDANIA DALEY [facility]
[2024-05-24] MEDS ORDERED: dexAMETHasone 10 MG/ML VIAL ONE (18:38)
[2024-05-24] MEDS ORDERED: FAMOTIDINE 20 MG TAB ONE (18:39)
--- NOTE | 2024-05-24 18:46 | ER ---
Nurse's Notes [facility] Name: Christa Montero Age: 43 yrs Sex: Female : 1980 Arrival Date: 05/24/2024 Time: 18:21 Bed IW3 Private MD: Diagnosis: Allergic contact dermatitis due to plants, except food Presentation: 05/24 18:31 Chief complaint: Patient states: I was doing yard work and got into poison MARIUSZ. I have jb4 a rash on my face, arms, legs, and neck. I have been taking Benadryl at home with no relief. Coronavirus screen: At this time, the client does not indicate any symptoms associated with coronavirus-19. Ebola Screen: No symptoms or risks identified at this time. Initial Sepsis Screen: Does the patient meet any 2 criteria? HR > 90 bpm. Yes Does the patient have a suspected source of infection? No. Patient's initial sepsis screen is negative. Risk Assessment: Do you want to hurt yourself or someone else? Patient reports no desire to harm self or others. Onset of symptoms was May 24, 2024. Transition of care: patient was not received from another setting of care. 18:31 Method Of Arrival: Ambulatory jb4 18:31 Acuity: MARION 4 jb4 Triage Assessment: 18:31 General: Appears in no apparent distress. comfortable, Behavior is calm, cooperative, jb4 appropriate for age. Pain: Complains of pain in face, right arm, left arm, right leg, left leg and neck Pain currently is 7 out of 10 on a pain scale. Neuro: Level of Consciousness is awake, alert, obeys commands, Oriented to person, place, time, situation. Cardiovascular: Patient's skin is warm and dry. Respiratory: Airway is patent Respiratory effort is even, unlabored, Respiratory pattern is regular, symmetrical. Derm: Skin is intact, Skin is pink, warm \T\ dry. Rash noted that is urticaria, on left side of head, right bicep, dorsal aspect of right forearm, left bicep, dorsal aspect of left forearm, right hamstring and left hamstring. Musculoskeletal: Circulation, motion, and sensation intact. Range of motion: intact in all extremities. 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 - Infectious Disease History:: Denies. - Social history:: Smoking status: Patient denies any tobacco usage or history of. Screenin:10 [facility] ED Fall Risk Assessment (Adult) History of falling in the last 3 months, jb4 including since admission No falls in past 3 months (0 pts) Confusion or Disorientation No (0 pts) Intoxicated or Sedated No (0 pts) Impaired Gait No (0 pts) Mobility Assist Device Used No (0 pt) Altered Elimination No (0 pt) Score/Fall Risk Level 0 - 2 = Low Risk Oriented to surroundings, Maintained a safe environment. Abuse screen: Denies threats or abuse. Nutritional screening: No deficits noted. Tuberculosis screening: No symptoms or risk factors identified. Assessment: 19:10 Reassessment: Patient appears in no apparent distress at this time. Patient and/or jb4 family updated on plan of care and expected duration. Pain level reassessed. Patient is alert, oriented x 3, equal unlabored respirations, skin warm/dry/pink. Vital Signs: 18:31 BP 153 / 106; Pulse 98; Resp 19; Temp 98.7(O); Pulse Ox 98% on R/A; Weight 83.91 kg jb4 (R); Height 5 ft. 1 in. (R); 18:31 Body Mass Index 34.96 (83.91 kg, 154.94 cm) jb4 ED Course: 18:23 Patient arrived in ED. mr 18:24 Ania Peck FNP-C is [facility]. kb 18:25 Manan Brothers MD is Attending Physician. kb 18:31 Arm band placed on right wrist. jb4 18:35 Triage completed. jb4 18:40 Kristi Dickey, MARKO is Primary Nurse. iw 19:10 Patient has correct armband on for positive identification. Bed in low position. Call jb4 light in reach. Side rails up X 1. Provided Education on: discharge instructions.. 19:10 No provider procedures requiring assistance completed. Patient did not have IV access jb4 during this emergency room visit. Administered Medications: 18:43 Drug: Dexamethasone IM 10 mg IM once Route: IM; Site: right deltoid; jb4 19:10 Follow up: Response: No adverse reaction; Marked relief of symptoms jb4 18:43 Drug: Famotidine PO 20 mg PO once Route: PO; jb4 19:10 Follow up: Response: No adverse reaction; Marked relief of symptoms jb4 Medication: 19:10 VIS not applicable for this client. jb4 Outcome: 18:46 Discharge ordered by . garry 19:10 Discharged to home ambulatory, with family, jb4 19:10 Condition: stable 19:10 Discharge instructions given to patient, Instructed on discharge instructions, follow up and referral plans. medication usage, Demonstrated understanding of instructions, follow-up care, medications, Prescriptions given X 2, 19:15 Patient left the ED. jb4 Signatures: Ania Peck, MARCO-C ALL ROUND LOGGER-Jennyfer Jacob Reg Reg mr Kristi Dickey, RN RN iw Jonatan Orr RN RN jb4
--- NOTE | 2024-05-24 18:46 | EDPHYS ---
Physician Documentation [facility] Name: Christa Montero Age: 43 yrs Sex: Female : 1980 Arrival Date: 05/24/2024 Time: 18:21 Bed IW3 Private MD: ED Physician Manan Brothers HPI: 05/24 18:27 This 43 yrs old Female presents to ER via Unassigned with complaints of Poison Leann. kb 18:27 Pt is a 43 year old female who presents for rash and swelling after contact with poison kb leann on Wednesday. States rash is spreading and getting worse so that is what made her come in today. Denies shortness of breath. 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 - Infectious Disease History:: Denies. - Social history:: Smoking status: Patient denies any tobacco usage or history of. ROS: 18:29 Constitutional: As per HPI kb Exam: 18:29 Constitutional: This is a well developed, well nourished patient who is awake, alert, kb and in no acute distress. Head/Face: Normocephalic, atraumatic. ENT: Moist Mucous membranes Cardiovascular: Regular rate Respiratory: Respirations even and unlabored. No increased work of breathing. Talking in full sentences MS/ Extremity: Pulses equal, no cyanosis. Neurovascular intact. Full, normal range of motion. Neuro: Awake and alert, GCS 15, oriented to person, place, time, and situation. 18:29 Skin: consistent with contact dermatitis, on the face, right arm, left arm, left leg and neck, Vital Signs: 18:31 BP 153 / 106; Pulse 98; Resp 19; Temp 98.7(O); Pulse Ox 98% on R/A; Weight 83.91 kg jb4 (R); Height 5 ft. 1 in. (R); 18:31 Body Mass Index 34.96 (83.91 kg, 154.94 cm) jb4 MDM: 18:25 Medical Screening Exam initiated kb 18:29 Differential diagnosis: contact dermatitis, parasitic infection. Data reviewed: vital kb signs, nurses notes. Counseling: I had a detailed discussion with the patient and/or guardian regarding the historical points, exam findings, and any diagnostic results supporting the discharge/admit diagnosis, the need for outpatient follow up, a family practitioner, to return to the emergency department if symptoms worsen or persist or if there are any questions or concerns that arise at home. Administered Medications: 18:43 Drug: Dexamethasone IM 10 mg IM once Route: IM; Site: right deltoid; jb4 19:10 Follow up: Response: No adverse reaction; Marked relief of symptoms jb4 18:43 Drug: Famotidine PO 20 mg PO once Route: PO; jb4 19:10 Follow up: Response: No adverse reaction; Marked relief of symptoms jb4 Disposition Summary: 05/24/24 18:46 Discharge Ordered Notes: Location: Home kb Condition: Stable kb Diagnosis - Allergic contact dermatitis due to plants, except food kb Followup: kb - With: Emergency Department - When: As needed - Reason: Worsening of condition Followup: kb - With: Private Physician - When: 2 - 3 days - Reason: Recheck today's complaints, Continuance of care, Re-evaluation by your physician Discharge Instructions: - Discharge Summary Sheet kb - Poison Leann Dermatitis, [id number] kb Forms: - Medication Reconciliation Form kb - Antibiotic Education kb - Prescription Opioid Use kb - Patient Portal Instructions kb - Leadership Thank You Letter kb Prescriptions: - Pepcid 20 mg Oral Tablet - take 1 tablet ORAL route every 12 hours for 5 days; 10 tablet; Refills: 0, kb Product Selection Permitted - Prednisone 20 mg Oral Tablet - take 1 tablet ORAL route once daily for 5 days; 5 tablet; Refills: 0, Product kb Selection Permitted Signatures: Ania Peck, THADC HR ASSISTANT-Jonatan Aguillon, RN RN jb4
[2024-05-25 01:36] VITALS: BP 153/106; TEMP 98.7; O2SAT 98
== END 2024-05-24 19:15 | disposition home or self-care (01) ==
LOC: ER 18:21
DX: L23.7 Allergic contact dermatitis due to plants, except food (principal); I10 Essential (primary) hypertension
CPT/HCPCS: 96372; 99284; J1100